=== PATIENT | female | born 1940 | race Caucasian/White ===

== ENCOUNTER 2023-05-06 09:31 | Inpatient (IN) ==
--- NOTE | 2023-04-29 12:54 | Anesthesiology Consultation ---
Date of Service April 29, 2023 Assessment & Plan (1) Encounter for pre-operative examination: Chart Review Chart Review: Acceptable Risk for Surgery (pending anesthesia evaluation DOS (getting CBC with diff, T&C, and 2 units of PRBCs DOS)) and Patient NOT seen in Pre Admission Testing - Type and Cross and CBC with diff stat for DOS Discussed with Dr. Hernandez- due to patient's significant anemia and nature of surgery- decision was made to transfuse patient DOS with two units of PRBCs (ordered for DOS). Surgeon's office/patient was informed. OR informed to bring in patient three hours early. Blood Bank was also informed- Blood Bank recommended preop T&S- patient will attempt to get preop T&S done 05/04/23 (ordered) per Blood Bank recommendations. Dr Ojeda (anesthesiologist DOS)- is aware and agrees with plan. Per surgeon phone message 04/28/23 in [facility] re: anemia= "If she is asymptomatic, will assess at date of operation but if symptoms develop would transfuse her." -Infectious Disease screening: Per PAT nursing assessment on 04/29/23. No known infectious disease contacts in past 10 days or current infectious disease symptoms. No recent travel outside the country. History Surgery Operation Date: 05/06/23 12:35 Proposed Procedures p Open Right Colon Resection - Bartolo Khoury MD Height/Weight Height: 5 ft 2 in Weight: 53.07 kg Allergies Allergy/AdvReac Type Severity Reaction Status Date / Time methylprednisolone Allergy Severe [place] like Verified 04/29/23 11:44 back and stomach were on fire. aspirin Allergy Unknown "made me Verified 04/29/23 11:44 feel weird" azithromycin Allergy Diarrhea Verified 04/29/23 11:44 Cephalosporins Allergy unsure of Verified 04/29/23 11:44 reaction Medications Home Medications Medication Instructions Recorded Confirmed Last Taken lisinopril 20 mg tablet 20 mg PO QAM 04/30/20 04/29/23 04/30/20 tramadol 50 mg tablet 50 mg PO BID PRN pain #11 tabs 04/05/23 04/29/23 Unknown Past Medical History Medical History Age related osteoporosis Anxiety Hip pain, right Hx of migraines Hypercholesterolemia Hypertension Smoker Vaginal vault prolapse after hysterectomy Past Surgical History Surgical History Hx of hysterectomy w/ removal remaining fallopian tube and ovary Hx of unilateral oophorectomy w/removal appendix>also removed "a 25 lb chocolate cyst and chocolate fluid" Social History Smoking Status: Current every day smoker Smoking cigarettes per day: 1 ppd Do You Dip or Chew Tobacco: No Hx Alcohol Use: No Hx Substance Use: No substance use type: does not use Testing Laboratory Results 04/25/23= WBC: 15.26 H/H: 7.3/23.6 (surgeon aware) PLATELETS: 623 SODIUM: 137 POTASSIUM: 4.7 CHLORIDE: 98 CO2: 28 BUN: 15 CREATININE: 0.7 GLUCOSE: 109 04/05/23= UA: Negative Electrocardiogram Date: 04/05/23 SR with PACs at 84bpm Poor R wave progression, consider anterior [place] vs lead placement vs LVH (Septal infarct noted on 2019 EKG; discussed with Dr. Rodrigues- due to nature of procedure- patient can proceed as scheduled. Will leave to anesthesiologist discretion DOS if repeat EKG needed) Other Testing Abdomen/Pelvis CT 04/05/23= Increased size of the cecal mass described on the study from 05/12/2020 now measuring up to approximately 8 cm. Primary colorectal carcinoma is the primary differential consideration. As previously suggested, follow-up with GI consult and colonoscopy recommended. Borderline enlarged lymph nodes of the ileocolic mesentery. No bowel obstruction or pneumoperitoneum. Mild nonspecific urinary bladder wall thickening. Correlate with urinalysis.
[2023-05-06 10:16] LABS: Basophils # (auto) 0.02 K/uL (0.00-0.20); Basophils % (auto) 0.1 %; Eosinophils # (auto) 0.03 K/uL (0.00-0.50); Eosinophils % (auto) 0.2 %; Hematocrit (blood only) 23.7 % (37.0-47.0); Hemoglobin 7.3 g/dl (12.0-16.0); Immature Granulocytes % (auto) 0.7 %; Lymphocytes # (auto) 1.77 K/uL (1.20-3.40); Lymphocytes % (auto) 11.9 %; Mean Corpuscular Hgb Conc 30.8 g/dL (32.0-36.0); Mean Corpuscular Volume 68.3 fL (80.0-100.0); Monocytes # (auto) 0.93 K/uL (0.11-0.59); Monocytes % (auto) 6.3 %; Neutrophils # (auto) 11.97 K/uL (1.40-6.50); Neutrophils % (auto) 80.8 %; RDW Standard Deviation 43.4 fL (36.4-46.3); Red Blood Count 3.47 M/uL (4.20-5.40); White Blood Count 14.82 K/ul (4.8-10.8)
[2023-05-06 10:20] LABS: Mean Platelet Volume 8.8 fL (9.4-12.4); Platelet Count 614 K/uL (130-400)
[2023-05-06] MEDS: LACTATED RINGER'S 1,000 ML IV SCH ×2 (10:28→16:54)
[2023-05-06] MEDS ORDERED: SODIUM CHLORIDE 0.9% 250 ML IV PRN (10:51)
[2023-05-06 11:13] LABS: Hypochromasia Present; Polychromasia 1+; Target Cells 1+
[2023-05-06] MEDS ORDERED: ATROPINE SULFATE 0.1 MG/ML 10ML SYR IV PRN (11:38)
[2023-05-06] MEDS ORDERED: PROMETHAZINE HCL 6.25 MG in SODIUM CHLORIDE 0.9% 50 ML IV PRN (11:38)
[2023-05-06] MEDS ORDERED: ONDANSETRON INJ 2 MG/ML 2 ML VIAL IV PRN (11:38)
[2023-05-06] MEDS ORDERED: ePHEDrine sulfate 50 MG/ML AMP IV PRN (11:38)
[2023-05-06] MEDS ORDERED: fentaNYL citrate PF 100 MCG/2 ML VIAL ONE (11:41)
[2023-05-06] MEDS ORDERED: ONDANSETRON INJ 2 MG/ML 2 ML VIAL ONE (11:41)
[2023-05-06] MEDS ORDERED: DEXAMETHASONE SOD INJ 4 MG/ML VIAL ONE (11:41)
[2023-05-06] MEDS ORDERED: LIDOCAINE 2% 2 ML VIAL/AMP(20MG/ML) INFIL ONE (11:41)
[2023-05-06] MEDS ORDERED: PROPOFOL IV EMULSION 10 MG/ML 20 ML VIAL IV ONE (11:41)
[2023-05-06] MEDS ORDERED: ROCURONIUM BROMIDE 10 MG/ML 5 ML VIAL IV ONE (11:41)
[2023-05-06] MEDS ORDERED: SUGAMMADEX SODIUM 200 MG/2 ML VIAL IV ONE (11:42)
[2023-05-06] MEDS ORDERED: BUPIVACAINE 0.25% PF 30 ML VIAL ONE (11:47)
--- NOTE | 2023-05-06 13:15 | History & Physical Bridge Note ---
Date of Service May 06, 2023 History & Physical Bridge Note I have examined the patient, reviewed the History & Physical and in the interval since the performance of the History & Physical I have noted the following changes of clinical significance: no changes noted
[2023-05-06] MEDS: CLINDAMYCIN 900 MG/D5W 50 ML BAG IV ONE (13:20)
[2023-05-06] MEDS ORDERED: ePHEDrine sulfate 50 MG/5 ML SYR ONE (13:54)
[2023-05-06] MEDS ORDERED: PHENYLEPHRINE 100MCG/ML 10ML SYR IV ONE (14:08)
--- NOTE | 2023-05-06 14:50 | Post Operative Brief Note ---
Immediate Post Op Note v1 Date of Surgery May 06, 2023 Pre & Post Diagnosis Operation Date: 05/06/23 12:35 Pre-Op Diagnosis: Mass of Colon Post-Op Diagnosis: Mass of Colon I identified the patient and participated in the time-out.: Yes Procedure Operation Date: 05/06/23 12:35 Actual Procedures p Open Right Colon Resection(Right) - Bartolo Khoury MD Surgeon Bartolo Khoury MD Warp Worker Mireya Acosta PA-C Estimated Blood Loss 5 Findings Consistent with Post-Op Diagnosis Drains Wellington Drain and Hopkins Catheter
--- NOTE | 2023-05-06 15:03 | Operative Report ---
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 Palpable lymph nodes along the blood supply. Specimens Right hemicolectomy. Ischemic portion of the terminal ileum. Abdominal sidewall resection. Ink on the distal lateral margin. 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 Indications This is a 83-year-old female who was seen in consult after a colonoscopy showed a cecal mass. The biopsy results were equivocal but appears to be carcinoma by CT. Her CEA is also elevated. She had a hematocrit of 21 and received a transfusion preoperatively. I talked her in detail about these findings and recommended right colectomy. She understands all the risks and wishes to proceed. Description of Procedure The patient was taken to the OR and underwent excellent general anesthesia. She had a regional block by anesthesia preoperatively. Her abdomen then prepped and draped normal sterile fashion. A upper midline incision was extended down to below the umbilicus. Peritoneal cavity was entered without incident. On exploration she had a large cecal mass which was adherent to the right lateral solid sidewall. This also appeared to be near necrotic. Although there was no perforation at this time. Attention was first turned to her gastrocolic limit ligament which was taken down harmonic scalpel. This was extended around the hepatic flexure and along the right lateral sidewall. A blunt and sharp dissection was used to free up the right colon. This was done until the mass was noted to be adherent and stuck to the sidewall. Attention was then turned to her terminal ileum where a segment was transected. The distal colon was also transected just distal to the hepatic flexure. The peritoneum was taken down to the base of the blood supply. Harmonic scalpel was used to dissected until the major vessels were seen. Once this was done a clamp was placed as proximal on the right colic artery as possible. This was then transected using the harmonic scalpel taken as many lymph nodes as possible. A 0 silk silk stick tie was used to ligate the blood supply proximally. Once this was done traction was placed on the segment of right colon and cautery was used to try and resect the lateral sidewall en bloc. In doing this the colon perforated where the area of necrosis had been noted previously. Care was taken to avoid any spillage. Cautery was used then to transect the lateral abdominal wall into the muscle with healthy tissue laterally. This is the inked margin was resected separately and sent for pathologic pathology evaluation. The right colon was also sent separately. Attention was then turned to the segment of bowel. The distal terminal ileum appeared to be ischemic and dissection was then we resected using a DENNIS stapler. Once good healthy tissue was noted a [id number] anastomosis was created with a DENNIS stapler. The defects were closed with a DENNIS stapler and reinforced with interrupted silks. The mesenteric defect was then closed with interrupted 6 silks also. This closed the mesenteric defect without any openings. The abdomen was then irrigated and irrigated out with 2 L of saline. There was minimal blood loss. NG tube was checked to be in good position. A Wellington drain was then placed down into the pelvis and along the right lateral abdominal wall. There was no obvious spillage but this was precautionary to avoid any potential abscess. The fascia was then closed with a running PDS suture. The skin was closed with bailee. Sterile dressing was applied. She tolerated procedure without complications and be sent to postop recovery for a period of observation. She will be moved to the floor when she meets criteria Mireya San PA-C was involved in the entire procedure and and assisted with retraction, facilitation of the procedure, and skin closure. There was no qualified medical surgical tech available to assist in the procedure. I attest to the content of the Intraoperative Record and any orders documented therein. Any exceptions are noted below.
[2023-05-06] MEDS ORDERED: PHENYLEPHRINE HCL 10 MG/ML VIAL ONE (15:10)
[2023-05-06] MEDS: fentaNYL citrate PF 100 MCG/2 ML VIAL IV PRN (15:13)
--- NOTE | 2023-05-06 16:03 | Anesthesiology Progress Note ---
Date of Service May 06, 2023 Anesthesia Post Procedure Vital Signs Vital Signs: Temp Pulse Pulse Resp BP BP Pulse Ox 05/06/23 15:50 36.8 C 81 18 142/77 H 100 05/06/23 15:40 36.8 C 75 18 152/77 H 100 05/06/23 15:30 74 18 156/78 H 100 05/06/23 15:20 72 19 150/77 H 100 05/06/23 15:10 74 23 144/101 H 99 05/06/23 14:59 36.8 C 79 18 145/76 H 100 05/06/23 12:49 36.6 C 81 20 136/85 98 05/06/23 12:37 36.8 C 67 18 110/87 98 05/06/23 12:13 36.7 C 70 18 133/87 98 05/06/23 11:40 37.0 C 71 20 128/85 98 05/06/23 11:25 36.4 C L 77 20 124/55 L 99 05/06/23 11:07 36.9 C 69 18 136/70 98 05/06/23 10:09 O2 Del Method O2 Flow Rate 05/06/23 15:50 Oxymask 2 05/06/23 15:40 Oxymask 4 05/06/23 15:30 Oxymask 5 05/06/23 15:20 Oxymask 5 05/06/23 15:10 Oxymask 7 05/06/23 14:59 Oxymask 7 05/06/23 12:49 05/06/23 12:37 05/06/23 12:13 05/06/23 11:40 05/06/23 11:25 05/06/23 11:07 05/06/23 10:09 Room Air Pain Intensity Medial Abdomen: Pain Intensity: 3 Transfer of Care Handoff Completed per policy Notes Mental Status: alert / awake / arousable Patient Amnestic to Procedure: Yes Nausea / Vomiting: adequately controlled Pain: adequately controlled Airway Patency, RR, SpO2: stable & adequate BP & HR: stable & adequate Hydration State: stable & adequate Anesthetic Complications: no major complications apparent
[2023-05-06] MEDS ORDERED: ACETAMINOPHEN 325 MG TAB PO PRN (16:44)
[2023-05-06] MEDS ORDERED: ALUMINUM/MAGNESIUM SUSP 30 ML UDC PO PRN (16:44)
[2023-05-06] MEDS ORDERED: oxyCODONE/ACETAMINOPHEN 5mg/325mg TAB PO PRN ×2 (16:44)
[2023-05-06] MEDS ORDERED: MoRPHine SULFATE 4 MG/ML 1 ML CARP\\VIAL IV PRN (16:44)
[2023-05-06] MEDS: CLINDAMYCIN/D5W 900 MG/50 ML BAG IV SCH ×2 (16:49→17:37)
[2023-05-06] MEDS: ALLERGY Noted to ORDERED Medication SCH (16:50)
[2023-05-06] MEDS: MoRPHine SULFATE 2 MG/ML CARP IV PRN (17:00)
[2023-05-06] MEDS: ENOXAPARIN INJ 40 MG/0.4 ML SYR SQ SCH (17:37)
[2023-05-07] MEDS: LACTATED RINGER'S 1,000 ML IV ONE (06:28)
[2023-05-07 07:55] LABS: Albumin Globulin Ratio 1.1 (0.9-2); Albumin Level 2.3 gm/dl (3.4-5.0); BUN Creatinine Ratio 22.4 (10-20); Bilirubin Direct 0.1 mg/dl (0-0.2); Bilirubin,Total 0.4 mg/dl (0.2-1.0); Calcium 7.6 mg/dl (8.6-10.3); Creatinine Clr Calc Pharmacy 44.4 ml/min; Est GFR (African American) 84.1 ml/min; Est GFR (Non-African American) 72.5 ml/min; Potassium 4.4 mmol/L (3.5-5.1); Total Protein 4.3 gm/dl (6.0-8.3)
[2023-05-07 08:58] LABS: Hematocrit (blood only) 22.3 % (37.0-47.0); Hemoglobin 7.1 g/dl (12.0-16.0); Mean Corpuscular Hgb Conc 31.8 g/dL (32.0-36.0); Mean Corpuscular Volume 72.2 fL (80.0-100.0); Mean Platelet Volume 9.5 fL (9.4-12.4); Platelet Count 426 K/uL (130-400); RDW Coefficient of Variation 20.8 % (11.5-14.5); RDW Standard Deviation 53.3 fL (36.4-46.3); Red Blood Count 3.09 M/uL (4.20-5.40); White Blood Count 20.46 K/ul (4.8-10.8)
[2023-05-07 09:03] LABS: Basophils # (auto) 0.02 K/uL (0.00-0.20); Basophils % (auto) 0.1 %; Hypochromasia Present; Immature Granulocytes # (auto) 0.08 K/uL (0.01-0.20); Immature Granulocytes % (auto) 0.4 %; Lymphocytes # (auto) 1.29 K/uL (1.20-3.40); Lymphocytes % (auto) 6.3 %; Monocytes # (auto) 0.84 K/uL (0.11-0.59); Monocytes % (auto) 4.1 %; Neutrophils # (auto) 18.23 K/uL (1.40-6.50); Neutrophils % (auto) 89.1 %; Polychromasia 2+; Schistocytes 1+
[2023-05-07] MEDS: ACETAMINOPHEN 1,000 MG/100 ML VIAL IV SCH (09:03)
--- NOTE | 2023-05-07 09:22 | Surgery Progress Note ---
Date of Service May 07, 2023 Assessment & Plan (1) Colonic mass: Plan: POD #1 s/p exploratory laparotomy right hemicolectomy, removal of right abdominal side wall (tumor invaded the right abdominal wall muscle) -avss - NGT with minimal to no output - Urine output low last night only 100 cc (s/p 1 liter ) - creatinine wnl (2) Anemia: Plan: Chronic in setting of colonic mass hemoglobin 7.1 this am (7.3 preop) s/p 1 unit of PRBCs preop, 1 liter of LR this morning likely dilutional hemodynamically stable Plan plan: IV tylenol scheduled, will add IV Toradol prn Remove NGT sips and chips keep suggs OOB to chair incentive spirometry scds and lovenox for DVT prophylaxis repeat am labs Continue IV Clindamycin PT/OT ordered abdominal binder Dr. Khoury has seen and examined patient, agrees with above Admission and Anticipated Discharge Date Admission Date: May 06, 2023 Subjective having moderate abdominal pain, generalized Morphine made her really confused last night, was trying to pull out IVs and r emove SCDs, did not like that feeling no nausea or vomiting no chest pain or shortness of breath Physical Exam Constitutional: WD/WN, vitals as above cooperative and comfortable; no acute distress, not ill appearing and not diaphoretic Respiratory: normal respiratory effort; no respiratory distress and no labored breathing Gastrointestinal (Abdomen): Inspection/Auscultation: abdomen normal to inspection, + abdomen distended (mildly), + abdominal surgical incision (covered with dry dressing) and + abdominal surgical drain present (cloudy serosanguineous); + abnormal bowel sounds Percussion/Palpation: + abdomen tender (Right lower abdomen, at midline incision) and abdomen soft; no guarding and abdomen not rigid Skin: no rashes, warm and dry Psychiatric: Orientation: alert and oriented x 3 Results & Data Vital Signs (Past 12 Hours) Vital Signs Temp Pulse Resp BP Pulse Ox O2 Del Method 05/07/23 07:27 36.6 C 75 18 105/71 94 Room Air 05/07/23 02:44 36.4 C L 71 16 112/63 95 Room Air 05/06/23 23:07 36.7 C 85 16 115/69 97 Room Air Laboratory Results 03/26/24 03/26/24 03/26/24 Range/Units 07:17 07:14 07:14 WBC 20.46 H (4.8-10.8) K/ul RBC 3.09 L (4.20-5.40) M/uL Hgb 7.1 L (12.0-16.0) g/dl Hct 22.3 L (37.0-47.0) % MCV 72.2 L D (80.0-100.0) fL MCH 23.0 L (25.0-34.0) pg MCHC 31.8 L (32.0-36.0) g/dL RDW Std Deviation 53.3 H (36.4-46.3) fL RDW Coeff of Brad 20.8 H (11.5-14.5) % Plt Count 426 H (130-400) K/uL MPV 9.5 (9.4-12.4) fL Immature Gran % (Auto) 0.4 % Neut % (Auto) 89.1 % Lymph % (Auto) 6.3 % [place] % (Auto) 4.1 % Eos % (Auto) 0.0 % Baso % (Auto) 0.1 % Neut # (Auto) 18.23 H (1.40-6.50) K/uL Lymph # (Auto) 1.29 (1.20-3.40) K/uL [place] # (Auto) 0.84 H (0.11-0.59) K/uL Eos # (Auto) 0.00 (0.00-0.50) K/uL Baso # (Auto) 0.02 (0.00-0.20) K/uL Immature Gran # (Auto) 0.08 (0.01-0.20) K/uL Polychromasia 2+ Hypochromasia Present Target Cells Schistocytes 1+ Sodium (136-145) mmol/L Potassium (3.5-5.1) mmol/L Chloride (98-107) mmol/L Carbon Dioxide (21-32) mmol/L Anion Gap (3-11) BUN (6-23) mg/dl Creatinine (0.6-1.2) mg/dl Est Cr Clr Drug Dosing ml/min Est GFR ( Amer) ml/min Est GFR (Non-Af Amer) ml/min BUN/Creatinine Ratio (10-20) Glucose Cancelled (70-99(Fasting)) mg/dl Calcium Cancelled 7.6 L (8.6-10.3) mg/dl Total Bilirubin 0.4 (0.2-1.0) mg/dl Direct Bilirubin 0.1 (0-0.2) mg/dl AST 9 L (13-39) U/L ALT 6 L (7-52) U/L Alkaline Phosphatase 54 (34-104) U/L Total Protein 4.3 L (6.0-8.3) gm/dl Albumin 2.3 L (3.4-5.0) gm/dl Globulin 2.0 L (2.5-4.0) gm/dl Albumin/Globulin Ratio 1.1 (0.9-2) Blood Type Antibody Screen Crossmatch 05/07/23 05/07/23 05/07/23 Range/Units 07:14 07:14 07:14 WBC (4.8-10.8) K/ul RBC (4.20-5.40) M/uL Hgb (12.0-16.0) g/dl Hct (37.0-47.0) % MCV (80.0-100.0) fL MCH (25.0-34.0) pg MCHC (32.0-36.0) g/dL RDW Std Deviation (36.4-46.3) fL RDW Coeff of Brad (11.5-14.5) % Plt Count (130-400) K/uL MPV (9.4-12.4) fL Immature Gran % (Auto) % Neut % (Auto) % Lymph % (Auto) % [place] % (Auto) % Eos % (Auto) % Baso % (Auto) % Neut # (Auto) (1.40-6.50) K/uL Lymph # (Auto) (1.20-3.40) K/uL [place] # (Auto) (0.11-0.59) K/uL Eos # (Auto) (0.00-0.50) K/uL Baso # (Auto) (0.00-0.20) K/uL Immature Gran # (Auto) (0.01-0.20) K/uL Polychromasia Hypochromasia Target Cells Schistocytes Sodium (136-145) mmol/L Potassium (3.5-5.1) mmol/L Chloride (98-107) mmol/L Carbon Dioxide (21-32) mmol/L Anion Gap (3-11) BUN (6-23) mg/dl Creatinine (0.6-1.2) mg/dl Est Cr Clr Drug Dosing ml/min Est GFR ( Amer) Cancelled ml/min Est GFR (Non-Af Amer) Cancelled 72.5 ml/min BUN/Creatinine Ratio Cancelled 22.4 H (10-20) Glucose 124 H (70-99(Fasting)) mg/dl Calcium (8.6-10.3) mg/dl Total Bilirubin (0.2-1.0) mg/dl Direct Bilirubin (0-0.2) mg/dl AST (13-39) U/L ALT (7-52) U/L Alkaline Phosphatase (34-104) U/L Total Protein (6.0-8.3) gm/dl Albumin (3.4-5.0) gm/dl Globulin (2.5-4.0) gm/dl Albumin/Globulin Ratio (0.9-2) Blood Type Antibody Screen Crossmatch 05/07/23 05/07/23 05/07/23 Range/Units 07:14 07:14 07:14 WBC (4.8-10.8) K/ul RBC (4.20-5.40) M/uL Hgb (12.0-16.0) g/dl Hct (37.0-47.0) % MCV (80.0-100.0) fL MCH (25.0-34.0) pg MCHC (32.0-36.0) g/dL RDW Std Deviation (36.4-46.3) fL RDW Coeff of Brad (11.5-14.5) % Plt Count (130-400) K/uL MPV (9.4-12.4) fL Immature Gran % (Auto) % Neut % (Auto) % Lymph % (Auto) % [place] % (Auto) % Eos % (Auto) % Baso % (Auto) % Neut # (Auto) (1.40-6.50) K/uL Lymph # (Auto) (1.20-3.40) K/uL [place] # (Auto) (0.11-0.59) K/uL Eos # (Auto) (0.00-0.50) K/uL Baso # (Auto) (0.00-0.20) K/uL Immature Gran # (Auto) (0.01-0.20) K/uL Polychromasia Hypochromasia Target Cells Schistocytes Sodium (136-145) mmol/L Potassium (3.5-5.1) mmol/L Chloride (98-107) mmol/L Carbon Dioxide (21-32) mmol/L Anion Gap (3-11) BUN Cancelled (6-23) mg/dl Creatinine Cancelled 0.76 (0.6-1.2) mg/dl Est Cr Clr Drug Dosing Cancelled 44.4 ml/min Est GFR ( Amer) 84.1 ml/min Est GFR (Non-Af Amer) ml/min BUN/Creatinine Ratio (10-20) Glucose (70-99(Fasting)) mg/dl Calcium (8.6-10.3) mg/dl Total Bilirubin (0.2-1.0) mg/dl Direct Bilirubin (0-0.2) mg/dl AST (13-39) U/L ALT (7-52) U/L Alkaline Phosphatase (34-104) U/L Total Protein (6.0-8.3) gm/dl Albumin (3.4-5.0) gm/dl Globulin (2.5-4.0) gm/dl Albumin/Globulin Ratio (0.9-2) Blood Type Antibody Screen Crossmatch 05/07/23 05/07/23 05/07/23 Range/Units 07:14 07:14 07:14 WBC (4.8-10.8) K/ul RBC (4.20-5.40) M/uL Hgb (12.0-16.0) g/dl Hct (37.0-47.0) % MCV (80.0-100.0) fL MCH (25.0-34.0) pg MCHC (32.0-36.0) g/dL RDW Std Deviation (36.4-46.3) fL RDW Coeff of Brad (11.5-14.5) % Plt Count (130-400) K/uL MPV (9.4-12.4) fL Immature Gran % (Auto) % Neut % (Auto) % Lymph % (Auto) % [place] % (Auto) % Eos % (Auto) % Baso % (Auto) % Neut # (Auto) (1.40-6.50) K/uL Lymph # (Auto) (1.20-3.40) K/uL [place] # (Auto) (0.11-0.59) K/uL Eos # (Auto) (0.00-0.50) K/uL Baso # (Auto) (0.00-0.20) K/uL Immature Gran # (Auto) (0.01-0.20) K/uL Polychromasia Hypochromasia Target Cells Schistocytes Sodium (136-145) mmol/L Potassium (3.5-5.1) mmol/L Chloride Cancelled (98-107) mmol/L Carbon Dioxide Cancelled 27 (21-32) mmol/L Anion Gap Cancelled 5 (3-11) BUN 17 (6-23) mg/dl Creatinine (0.6-1.2) mg/dl Est Cr Clr Drug Dosing ml/min Est GFR ( Amer) ml/min Est GFR (Non-Af Amer) ml/min BUN/Creatinine Ratio (10-20) Glucose (70-99(Fasting)) mg/dl Calcium (8.6-10.3) mg/dl Total Bilirubin (0.2-1.0) mg/dl Direct Bilirubin (0-0.2) mg/dl AST (13-39) U/L ALT (7-52) U/L Alkaline Phosphatase (34-104) U/L Total Protein (6.0-8.3) gm/dl Albumin (3.4-5.0) gm/dl Globulin (2.5-4.0) gm/dl Albumin/Globulin Ratio (0.9-2) Blood Type Antibody Screen Crossmatch 05/07/23 05/07/23 05/07/23 Range/Units 07:14 07:14 07:14 WBC (4.8-10.8) K/ul RBC (4.20-5.40) M/uL Hgb (12.0-16.0) g/dl Hct (37.0-47.0) % MCV (80.0-100.0) fL MCH (25.0-34.0) pg MCHC (32.0-36.0) g/dL RDW Std Deviation (36.4-46.3) fL RDW Coeff of Brad (11.5-14.5) % Plt Count (130-400) K/uL MPV (9.4-12.4) fL Immature Gran % (Auto) % Neut % (Auto) % Lymph % (Auto) % [place] % (Auto) % Eos % (Auto) % Baso % (Auto) % Neut # (Auto) (1.40-6.50) K/uL Lymph # (Auto) (1.20-3.40) K/uL [place] # (Auto) (0.11-0.59) K/uL Eos # (Auto) (0.00-0.50) K/uL Baso # (Auto) (0.00-0.20) K/uL Immature Gran # (Auto) (0.01-0.20) K/uL Polychromasia Hypochromasia Target Cells Schistocytes Sodium Cancelled 136 (136-145) mmol/L Potassium Cancelled 4.4 (3.5-5.1) mmol/L Chloride 104 (98-107) mmol/L Carbon Dioxide (21-32) mmol/L Anion Gap (3-11) BUN (6-23) mg/dl Creatinine (0.6-1.2) mg/dl Est Cr Clr Drug Dosing ml/min Est GFR ( Amer) ml/min Est GFR (Non-Af Amer) ml/min BUN/Creatinine Ratio (10-20) Glucose (70-99(Fasting)) mg/dl Calcium (8.6-10.3) mg/dl Total Bilirubin (0.2-1.0) mg/dl Direct Bilirubin (0-0.2) mg/dl AST (13-39) U/L ALT (7-52) U/L Alkaline Phosphatase (34-104) U/L Total Protein (6.0-8.3) gm/dl Albumin (3.4-5.0) gm/dl Globulin (2.5-4.0) gm/dl Albumin/Globulin Ratio (0.9-2) Blood Type Antibody Screen Crossmatch 05/06/23 05/04/23 Range/Units 10:01 10:09 WBC 14.82 H (4.8-10.8) K/ul RBC 3.47 L (4.20-5.40) M/uL Hgb 7.3 L (12.0-16.0) g/dl Hct 23.7 L (37.0-47.0) % MCV 68.3 L (80.0-100.0) fL MCH 21.0 L (25.0-34.0) pg MCHC 30.8 L (32.0-36.0) g/dL RDW Std Deviation 43.4 (36.4-46.3) fL RDW Coeff of Brad 18.0 H (11.5-14.5) % Plt Count 614 H (130-400) K/uL MPV 8.8 L (9.4-12.4) fL Immature Gran % (Auto) 0.7 % Neut % (Auto) 80.8 % Lymph % (Auto) 11.9 % [place] % (Auto) 6.3 % Eos % (Auto) 0.2 % Baso % (Auto) 0.1 % Neut # (Auto) 11.97 H (1.40-6.50) K/uL Lymph # (Auto) 1.77 (1.20-3.40) K/uL [place] # (Auto) 0.93 H (0.11-0.59) K/uL Eos # (Auto) 0.03 (0.00-0.50) K/uL Baso # (Auto) 0.02 (0.00-0.20) K/uL Immature Gran # (Auto) 0.10 (0.01-0.20) K/uL Polychromasia 1+ Hypochromasia Present Target Cells 1+ Schistocytes Sodium (136-145) mmol/L Potassium (3.5-5.1) mmol/L Chloride (98-107) mmol/L Carbon Dioxide (21-32) mmol/L Anion Gap (3-11) BUN (6-23) mg/dl Creatinine (0.6-1.2) mg/dl Est Cr Clr Drug Dosing ml/min Est GFR ( Amer) ml/min Est GFR (Non-Af Amer) ml/min BUN/Creatinine Ratio (10-20) Glucose (70-99(Fasting)) mg/dl Calcium (8.6-10.3) mg/dl Total Bilirubin (0.2-1.0) mg/dl Direct Bilirubin (0-0.2) mg/dl AST (13-39) U/L ALT (7-52) U/L Alkaline Phosphatase (34-104) U/L Total Protein (6.0-8.3) gm/dl Albumin (3.4-5.0) gm/dl Globulin (2.5-4.0) gm/dl Albumin/Globulin Ratio (0.9-2) Blood Type O Positive Antibody Screen NEGATIVE Crossmatch See Detail
[2023-05-07] MEDS: PANTOprazole 40 MG in SYRINGE 0 ML IV SCH (12:27)
[2023-05-07] MEDS: FUROSEMIDE INJ 20 MG/2 ML VIAL IV ONE (16:11)
[2023-05-08 07:12] LABS: Hematocrit (blood only) 21.1 % (37.0-47.0); Hemoglobin 6.7 g/dl (12.0-16.0); Mean Corpuscular Hemoglobin 22.8 pg (25.0-34.0); Mean Corpuscular Hgb Conc 31.8 g/dL (32.0-36.0); Mean Corpuscular Volume 71.8 fL (80.0-100.0); Mean Platelet Volume 8.8 fL (9.4-12.4); Platelet Count 361 K/uL (130-400); RDW Coefficient of Variation 20.8 % (11.5-14.5); Red Blood Count 2.94 M/uL (4.20-5.40); White Blood Count 18.92 K/ul (4.8-10.8)
[2023-05-08] MEDS ORDERED: SODIUM CHLORIDE 0.9% 250 ML IV PRN ×2 (07:14→08:00)
[2023-05-08 07:31] LABS: BUN Creatinine Ratio 32.7 (10-20); Calcium 7.5 mg/dl (8.6-10.3); Est GFR (African American) 102.4 ml/min; Est GFR (Non-African American) 88.4 ml/min; Potassium 3.8 mmol/L (3.5-5.1)
[2023-05-08 07:33] LABS: Basophils # (auto) 0.02 K/uL (0.00-0.20); Basophils % (auto) 0.1 %; Eosinophils # (auto) 0.01 K/uL (0.00-0.50); Eosinophils % (auto) 0.1 %; Hypochromasia Present; Immature Granulocytes # (auto) 0.11 K/uL (0.01-0.20); Immature Granulocytes % (auto) 0.6 %; Lymphocytes # (auto) 0.91 K/uL (1.20-3.40); Lymphocytes % (auto) 4.8 %; Microcytosis Present; Monocytes # (auto) 0.39 K/uL (0.11-0.59); Monocytes % (auto) 2.1 %; Neutrophils # (auto) 17.48 K/uL (1.40-6.50); Neutrophils % (auto) 92.3 %
--- NOTE | 2023-05-08 08:38 | Surgery Progress Note ---
<Statement entered by Bartolo Khoury MD - 05/08/23 09:57> Patient seen and examined. Agree with above Date of Service May 08, 2023 Assessment & Plan (1) Colonic mass: Plan: POD #2 s/p exploratory laparotomy right hemicolectomy, removal of right abdominal side wall (tumor invaded the right abdominal wall muscle) - avss - Urine output adequate after Lasix - creatinine wnl (2) Anemia: Plan: acute on Chronic in setting of colonic mass hemoglobin 6.7 this am (7.1 yesterday, 7.3 preop) s/p 1 unit of PRBCs preop, 1 liter of LR given 05/07/23 due to low urine output. Likely dilutional hemodynamically stable Plan: Will plan to transfuse 2 units of PRBCs Plan plan: transfuse 2 units PRBCs IV tylenol scheduled, continue IV Toradol prn clears discontinue Gabriel OOB to chair today incentive spirometry scds and lovenox for DVT prophylaxis repeat am labs Continue IV Clindamycin PT/OT ordered abdominal binder Dr. Khoury has seen and examined patient, agrees with above Admission and Anticipated Discharge Date Admission Date: May 06, 2023 Subjective feeling frustrated this morning abdominal soreness but not having a lot of abdominal pain no n,v no flatus yet no chest pain or shortness of breath has not been out of bed much Physical Exam Constitutional: WD/WN, vitals as above cooperative and comfortable; no acute distress, not ill appearing and not diaphoretic Respiratory: normal respiratory effort, lungs clear to auscultation Cardiovascular: Rate/Rhythm: regular rate and regular rhythm Gastrointestinal (Abdomen): Inspection/Auscultation: abdomen normal to inspection, normal bowel sounds and + abdominal surgical incision (covered with dry dressing, bailee intact); abdomen not distended Percussion/Palpation: + abdomen tender (right upper and lower abdomen, midline laparotomy incision) and abdomen soft; no guarding, abdomen not rigid and abdomen not firm Skin: no rashes, warm and dry Psychiatric: A+Ox3, euthymic affect Results & Data Vital Signs (Past 12 Hours) Vital Signs Temp Pulse Resp BP Pulse Ox O2 Del Method 05/08/23 08:04 Room Air 05/08/23 07:42 36.6 C 78 18 116/60 96 Room Air 05/07/23 21:18 36.6 C 71 16 105/61 94 Room Air Laboratory Results 05/08/23 05/08/23 05/04/23 Range/Units 08:24 06:31 10:09 WBC 18.92 H (4.8-10.8) K/ul RBC 2.94 L (4.20-5.40) M/uL Hgb 6.7 L* (12.0-16.0) g/dl Hct 21.1 L (37.0-47.0) % MCV 71.8 L (80.0-100.0) fL MCH 22.8 L (25.0-34.0) pg MCHC 31.8 L (32.0-36.0) g/dL RDW Std Deviation 53.0 H (36.4-46.3) fL RDW Coeff of Brad 20.8 H (11.5-14.5) % Plt Count 361 (130-400) K/uL MPV 8.8 L (9.4-12.4) fL Immature Gran % (Auto) 0.6 % Neut % (Auto) 92.3 % Lymph % (Auto) 4.8 % [place] % (Auto) 2.1 % Eos % (Auto) 0.1 % Baso % (Auto) 0.1 % Neut # (Auto) 17.48 H (1.40-6.50) K/uL Lymph # (Auto) 0.91 L (1.20-3.40) K/uL [place] # (Auto) 0.39 (0.11-0.59) K/uL Eos # (Auto) 0.01 (0.00-0.50) K/uL Baso # (Auto) 0.02 (0.00-0.20) K/uL Immature Gran # (Auto) 0.11 (0.01-0.20) K/uL Hypochromasia Present Microcytosis Present Sodium 133 L (136-145) mmol/L Potassium 3.8 (3.5-5.1) mmol/L Chloride 101 (98-107) mmol/L Carbon Dioxide 27 (21-32) mmol/L Anion Gap 5 (3-11) BUN 17 (6-23) mg/dl Creatinine 0.52 L (0.6-1.2) mg/dl Est Cr Clr Drug Dosing 65.0 ml/min Est GFR ( Amer) 102.4 ml/min Est GFR (Non-Af Amer) 88.4 ml/min BUN/Creatinine Ratio 32.7 H (10-20) Glucose 70 (70-99(Fasting)) mg/dl Calcium 7.5 L (8.6-10.3) mg/dl Blood Type O Positive Antibody Screen NEGATIVE Crossmatch See Detail See Detail
[2023-05-08 11:49] LABS: Microcytosis Present
[2023-05-08] MEDS: IBUPROFEN 600 MG TAB PO SCH (15:19)
[2023-05-08] MEDS ORDERED: Nursing to Pharmacy Communication SCH (19:15)
[2023-05-09 07:16] LABS: Hematocrit (blood only) 29.4 % (37.0-47.0); Hemoglobin 9.6 g/dl (12.0-16.0); Mean Corpuscular Hemoglobin 24.2 pg (25.0-34.0); Mean Corpuscular Hgb Conc 32.7 g/dL (32.0-36.0); Mean Corpuscular Volume 74.2 fL (80.0-100.0); Mean Platelet Volume 8.9 fL (9.4-12.4); Platelet Count 347 K/uL (130-400); RDW Coefficient of Variation 21.4 % (11.5-14.5); RDW Standard Deviation 56.7 fL (36.4-46.3); Red Blood Count 3.96 M/uL (4.20-5.40); White Blood Count 17.31 K/ul (4.8-10.8)
[2023-05-09 07:41] LABS: BUN Creatinine Ratio 22.6 (10-20); Calcium 7.4 mg/dl (8.6-10.3); Creatinine Clr Calc Pharmacy 63.7 ml/min; Est GFR (African American) 101.8 ml/min; Est GFR (Non-African American) 87.8 ml/min; Potassium 3.4 mmol/L (3.5-5.1)
[2023-05-09 07:51] LABS: Anisocytosis Present; Basophils # (auto) 0.02 K/uL (0.00-0.20); Basophils % (auto) 0.1 %; Eosinophils # (auto) 0.15 K/uL (0.00-0.50); Eosinophils % (auto) 0.9 %; Immature Granulocytes # (auto) 0.21 K/uL (0.01-0.20); Immature Granulocytes % (auto) 1.2 %; Lymphocytes # (auto) 0.67 K/uL (1.20-3.40); Lymphocytes % (auto) 3.9 %; Monocytes # (auto) 0.31 K/uL (0.11-0.59); Monocytes % (auto) 1.8 %; Neutrophils # (auto) 15.95 K/uL (1.40-6.50); Neutrophils % (auto) 92.1 %; Polychromasia 2+
--- NOTE | 2023-05-09 10:55 | Surgery Progress Note ---
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 ambulate dry dressing daily check CBC in AM afebrile Admission and Anticipated Discharge Date Admission Date: May 06, 2023 Subjective pain controlled bloody BM passing flatus Review of Systems Constitutional: no fever and no chills Respiratory: no cough and no dyspnea Cardiovascular: no chest pain Gastrointestinal: + abdominal pain and + change in bowel h abits; no nausea and no vomiting Genitourinary: no dysuria Neurologic: no localized weakness and no generalized weakness Psychiatric: no behavioral changes Physical Exam Constitutional: WD/WN, vitals as above Respiratory: normal respiratory effort, lungs clear to auscultation Cardiovascular: RRR, no murmur, no edema Gastrointestinal (Abdomen): Inspection/Auscultation: abdomen normal to inspection, + abdomen distended, normal bowel sounds and + abdominal surgical incision (clean and dry; some drainage) Percussion/Palpation: + abdomen tender and abdomen soft; no guarding and abdomen not rigid [place] serous Musculoskeletal: Head/Neck/Chest: normocephalic and head atraumatic Skin: no rashes, warm and dry Results & Data Vital Signs (Past 12 Hours) Vital Signs Temp Pulse Resp BP Pulse Ox O2 Del Method 05/09/23 08:10 Room Air 05/09/23 07:38 36.5 C 70 18 117/74 94 Room Air
[2023-05-09] MEDS: CLINDAMYCIN HCL 150 MG CAP PO SCH (14:57)
[2023-05-10 07:15] LABS: Hematocrit (blood only) 33.5 % (37.0-47.0); Hemoglobin 11.4 g/dl (12.0-16.0); Mean Corpuscular Hemoglobin 25.1 pg (25.0-34.0); Mean Corpuscular Volume 73.8 fL (80.0-100.0); Mean Platelet Volume 9.2 fL (9.4-12.4); Platelet Count 386 K/uL (130-400); RDW Coefficient of Variation 22.7 % (11.5-14.5); RDW Standard Deviation 58.9 fL (36.4-46.3); Red Blood Count 4.54 M/uL (4.20-5.40); White Blood Count 11.18 K/ul (4.8-10.8)
[2023-05-10 07:26] LABS: BUN Creatinine Ratio 20.3 (10-20); Calcium 7.6 mg/dl (8.6-10.3); Creatinine Clr Calc Pharmacy 57.3 ml/min; Est GFR (African American) 98.2 ml/min; Est GFR (Non-African American) 84.8 ml/min; Potassium 3.3 mmol/L (3.5-5.1)
[2023-05-10] MEDS: PANTOprazole 40 MG TAB PO SCH (07:42)
[2023-05-10] MEDS: ONDANSETRON INJ 2 MG/ML 2 ML VIAL IV PRN (07:43)
[2023-05-10 07:49] LABS: Anisocytosis Present; Basophils # (auto) 0.02 K/uL (0.00-0.20); Basophils % (auto) 0.2 %; Echinocytes 1+; Eosinophils # (auto) 0.05 K/uL (0.00-0.50); Eosinophils % (auto) 0.4 %; Immature Granulocytes # (auto) 0.11 K/uL (0.01-0.20); Lymphocytes # (auto) 0.77 K/uL (1.20-3.40); Lymphocytes % (auto) 6.9 %; Monocytes # (auto) 0.26 K/uL (0.11-0.59); Monocytes % (auto) 2.3 %; Neutrophils # (auto) 9.97 K/uL (1.40-6.50); Neutrophils % (auto) 89.2 %; Polychromasia 1+; Target Cells 1+; Toxic Vacuolation 1+
[2023-05-10] MEDS: PIPERACILLIN/TAZOBACTAM 4.5 GM in DEXTROSE 5% MINI-B 100 ML IV ONE (11:45)
[2023-05-10] MEDS: PROMETHAZINE HCL 12.5 MG in SODIUM CHLORIDE 0.9% 50 ML IV PRN (11:45)
--- NOTE | 2023-05-10 13:09 | Surgery Progress Note ---
Date of Service May 10, 2023 Assessment & Plan (1) Cecum cancer: Plan: POD #4 exploratory laparotomy right hemicolectomy avss leukocytosis improving hgb 11 drain with purulent drainage n/ today with mild distention Plan: revert back to ice chips/sips start IV zosyn PO tramadol an IV toradol for pain IV phenergan added ivy hartley to bulb suction encouraged ambulating hallway continue scds and lovenox monitor labs [facility] covering this weekend Admission and Anticipated Discharge Date Admission Date: May 06, 2023 Subjective not feeling good today +nausea and vomiting feels bloated not tolerating oral pills or the clear liquids well +flatus and bowel movement Physical Exam Constitutional: WD/WN, vitals as above + frail appearing and cooperative; no acute distress, not ill appearing, not in distress and not diaphoretic Respiratory: normal respiratory effort; no respiratory distress Gastrointestinal (Abdomen): Inspection/Auscultation: + abdomen distended (mild), + abdominal surgical incision (clean/dry/intact with bailee, some cloudy serosanguineous drainage) and + abdominal surgical drain present (purulent) Percussion/Palpation: + abdomen tender (right abdomen and at incision and drain site) and abdomen soft; no guarding, abdomen not rigid and abdomen not firm Psychiatric: Orientation: alert and oriented x 3 Results & Data Vital Signs (Past 12 Hours) Vital Signs Temp Pulse Resp BP Pulse Ox O2 Del Method 05/10/23 07:15 Room Air 05/10/23 07:12 36.6 C 73 18 97/61 L 93 Room Air Laboratory Results 05/10/23 Range/Units 06:19 WBC 11.18 H (4.8-10.8) K/ul RBC 4.54 (4.20-5.40) M/uL Hgb 11.4 L (12.0-16.0) g/dl Hct 33.5 L (37.0-47.0) % MCV 73.8 L (80.0-100.0) fL MCH 25.1 (25.0-34.0) pg MCHC 34.0 (32.0-36.0) g/dL RDW Std Deviation 58.9 H (36.4-46.3) fL RDW Coeff of Brad 22.7 H (11.5-14.5) % Plt Count 386 (130-400) K/uL MPV 9.2 L (9.4-12.4) fL Immature Gran % (Auto) 1.0 % Neut % (Auto) 89.2 % Lymph % (Auto) 6.9 % [place] % (Auto) 2.3 % Eos % (Auto) 0.4 % Baso % (Auto) 0.2 % Neut # (Auto) 9.97 H (1.40-6.50) K/uL Lymph # (Auto) 0.77 L (1.20-3.40) K/uL [place] # (Auto) 0.26 (0.11-0.59) K/uL Eos # (Auto) 0.05 (0.00-0.50) K/uL Baso # (Auto) 0.02 (0.00-0.20) K/uL Immature Gran # (Auto) 0.11 (0.01-0.20) K/uL Toxic Vacuolation 1+ Polychromasia 1+ Anisocytosis Present Target Cells 1+ Echinocytes 1+ Sodium 134 L (136-145) mmol/L Potassium 3.3 L (3.5-5.1) mmol/L Chloride 102 (98-107) mmol/L Carbon Dioxide 25 (21-32) mmol/L Anion Gap 7 (3-11) BUN 12 (6-23) mg/dl Creatinine 0.59 L (0.6-1.2) mg/dl Est Cr Clr Drug Dosing 57.3 ml/min Est GFR ( Amer) 98.2 ml/min Est GFR (Non-Af Amer) 84.8 ml/min BUN/Creatinine Ratio 20.3 H (10-20) Glucose 86 (70-99(Fasting)) mg/dl Calcium 7.6 L (8.6-10.3) mg/dl
[2023-05-10] MEDS: KETOROLAC TROMETHAMINE 15 MG/ML VIAL IV PRN (14:11)
[2023-05-10] MEDS: PIPERACILLIN/TAZOBACTAM 4.5 GM in DEXTROSE 5% MINI-B 100 ML IV SCH (16:08)
--- NOTE | 2023-05-11 05:26 | Surgery Progress Note ---
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 labs when available Mobilize as able Lovenox is in place for DVT prevention Admission and Anticipated Discharge Date Admission Date: May 06, 2023 Supervising Physician Co-Signing Physician Notes I have seen and examined this patient, I agree with the above assessment The patient does admit to feeling improved today although her WBC did increase a bit to 12.62 from 11.18. She says her abdominal pain is much better and is only bothersome with significant moving, she is passing flatus and BMs and the nausea she had has resolved. On my inspection later in the am after the PA, there is no erythema at the incision line or evidence for infection, there is a small amount of serous drainage noted on the gauze that had been replaced over the incision earlier this am by nursing. There is a small amount of moisture to the skin at the umbilicus where the serous drainage was present on gauze, will keep an eye on this area. We will watch for today, follow up am labs and examination to see if a repeat CT is warranted at that time. Patient complained to nursing about oral Protonix being difficult to swallow at this time, prefers IV. This order adjustment was made. Subjective Patient is resting comfortably in bed. She notes her pain is well-controlled. She notes she has been having bowel movements. She denies any cough or shortness of breath. She denies any fevers, shakes, or chills. Physical Exam Gastrointestinal (Abdomen): Abdomen is soft and nondistended with positive bowel sounds. Patient's his incision is intact with bailee. There is some purulent appearing material on the surgical dressing. CHEY[place] drain is in place with some yellowish/purulent material draining from it. CHEYENNE has drained 280 cc over the past 24 hours. Results & Data Vital Signs (Past 12 Hours) Vital Signs Temp Pulse Resp BP Pulse Ox O2 Del Method 05/10/23 20:13 36.9 C 82 18 116/73 93 Room Air 05/10/23 19:30 Room Air PG Care Time/CCT Total # of Minutes Spent Total Time Spent with Patient: Total time spent is greater than 50% in coordination of care (as documented) at patient's floor/unit and/or counseling patient: Coding Level of Care Code 52217 Post Operative Follow-Up Diagnoses Cecum cancer C18.0
[2023-05-11 07:17] LABS: Hemoglobin 10.4 g/dl (12.0-16.0); Mean Corpuscular Hemoglobin 24.4 pg (25.0-34.0); Mean Corpuscular Hgb Conc 34.7 g/dL (32.0-36.0); Mean Corpuscular Volume 70.4 fL (80.0-100.0); Mean Platelet Volume 8.8 fL (9.4-12.4); Platelet Count 354 K/uL (130-400); RDW Coefficient of Variation 23.7 % (11.5-14.5); RDW Standard Deviation 58.4 fL (36.4-46.3); Red Blood Count 4.26 M/uL (4.20-5.40); White Blood Count 12.62 K/ul (4.8-10.8)
[2023-05-11 07:47] LABS: BUN Creatinine Ratio 24.2 (10-20); Calcium 7.4 mg/dl (8.6-10.3); Creatinine Clr Calc Pharmacy 54.5 ml/min; Est GFR (African American) 96.6 ml/min; Est GFR (Non-African American) 83.4 ml/min; Potassium 3.4 mmol/L (3.5-5.1)
[2023-05-11 07:50] LABS: Anisocytosis Present; Basophils # (auto) 0.02 K/uL (0.00-0.20); Basophils % (auto) 0.2 %; Echinocytes 1+; Eosinophils # (auto) 0.04 K/uL (0.00-0.50); Eosinophils % (auto) 0.3 %; Immature Granulocytes # (auto) 0.04 K/uL (0.01-0.20); Immature Granulocytes % (auto) 0.3 %; Lymphocytes # (auto) 0.88 K/uL (1.20-3.40); Monocytes # (auto) 0.24 K/uL (0.11-0.59); Monocytes % (auto) 1.9 %; Neutrophils % (auto) 90.3 %; Polychromasia 3+; Target Cells 1+
[2023-05-11] MEDS: PANTOprazole 40 MG in SYRINGE 0 ML IV SCH (11:24)
--- NOTE | 2023-05-12 05:26 | Surgery Progress Note ---
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 labs when available Mobil[place] as able Lovenox is in place for DVT prevention Admission and Anticipated Discharge Date Admission Date: May 06, 2023 Supervising Physician Co-Signing Physician Notes I have seen and examined this patient, I agree with the above assessment The patient denies having any nausea over night. After seeing her this am, I r eceived a message from nursing requesting renewal of her IV Toradol, upon further questioning her ability to tolerate oral intake, I am told she has been c/o burning in her stomach with clears (of note, pt states yesterday she does not like the broth) H/H decreased. Patient on DVT ppx, the primary team may not have wanted Toradol past this time. HD stable, question some dilutional effect in H/H vs GI. Will decrease IVF rate. Monitor BP then may heplock if she begins to tolerate clears well and BP's remain within her usual range for this admission. Renal function is WNL but will hold off on Toradol. Patient is also ordered for oral Ibuprofen by her primary team. For pain, will try a dose of IV Tylenol x1 awaiting the patient to be able to transition to oral today if she tolerates oral intake better. Noted that her primary team has Percocet with Acetaminophen ordered at this time for oral administration. If additional doses of IV Tylenol will be used, consider changing the Percocet orders to Oxycodone while in house. Increase PPI to BID for now, monitor H/H. May consider obtaining FOBT if more suspicious for GI mucosal bleeding. Midline incision remains intact, more abdominal drainage noted this am which still appears more serous. Skin becoming macerated a the umbilicus. Also ecchymotic here. Change dressing more frequently (communication entered). Consider leaving open to air once drainage slows down. Primary surgical team will assess further in the am. Subjective Patient is resting comfortably in bed. She denies any nausea or vomiting. She does note some pain at her surgical incision. She reports that she has had a bowel movement in the past 24 hours. She denies any fevers, shakes, or chills Physical Exam Gastrointestinal (Abdomen): Abdomen has slight distention noted. Patient has appropriate tenderness near surgical incision. There is a small amount of drainage on surgical dressing. Otherwise, her incision is clean, dry, intact [place] drain is in place draining serous fluid and is drained approxione 150 cc over the past 24 hours Results & Data Vital Signs (Past 12 Hours) Vital Signs Temp Pulse Resp BP Pulse Ox O2 Del Method 05/11/23 21:21 37 C 72 18 112/78 94 Room Air PG Care Time/CCT Total # of Minutes Spent Total Time Spent with Patient: Total time spent is greater than 50% in coordination of care (as documented) at patient's floor/unit and/or counseling patient: Coding Level of Care Code 83465 Post Operative Follow-Up Diagnoses Cecum cancer C18.0
[2023-05-12 08:09] LABS: Hemoglobin 8.5 g/dl (12.0-16.0); Mean Corpuscular Hemoglobin 23.9 pg (25.0-34.0); Mean Corpuscular Hgb Conc 32.7 g/dL (32.0-36.0); Mean Corpuscular Volume 73.2 fL (80.0-100.0); Platelet Count 313 K/uL (130-400); RDW Standard Deviation 62.4 fL (36.4-46.3); Red Blood Count 3.55 M/uL (4.20-5.40); White Blood Count 9.02 K/ul (4.8-10.8)
[2023-05-12 08:30] LABS: Anisocytosis Present; Eosinophils # (auto) 0.08 K/uL (0.00-0.50); Eosinophils % (auto) 0.9 %; Hypochromasia Present; Immature Granulocytes # (auto) 0.12 K/uL (0.01-0.20); Immature Granulocytes % (auto) 1.3 %; Lymphocytes # (auto) 1.05 K/uL (1.20-3.40); Lymphocytes % (auto) 11.6 %; Microcytosis Present; Monocytes # (auto) 0.25 K/uL (0.11-0.59); Monocytes % (auto) 2.8 %; Neutrophils # (auto) 7.52 K/uL (1.40-6.50); Neutrophils % (auto) 83.4 %; Polychromasia 2+; Rouleaux 1+; Schistocytes 1+; Target Cells 1+
[2023-05-12 08:31] LABS: Calcium 7.3 mg/dl (8.6-10.3); Creatinine Clr Calc Pharmacy 71.9 ml/min; Est GFR (African American) 105.9 ml/min; Est GFR (Non-African American) 91.3 ml/min; Potassium 3.3 mmol/L (3.5-5.1)
[2023-05-12] MEDS: ACETAMINOPHEN 1,000 MG/100 ML VIAL IV STA (13:20)
[2023-05-12] MEDS: PANTOprazole 40 MG in SYRINGE 0 ML IV SCH (20:43)
[2023-05-13] MEDS: ACETAMINOPHEN 1,000 MG/100 ML VIAL IV PRN (08:19)
--- NOTE | 2023-05-13 12:39 | Surgery Progress Note ---
Date of Service May 13, 2023 Assessment & Plan (1) Cecum cancer: Plan: POD #5 exploratory laparotomy right hemicolectomy avss drain with cloudy serous drainage Plan: FUll liquids continue IV zosyn once taking PO better can try to start oral pain medications antiemetics as needed ivy hartley to bulb suction encouraged ambulating hallway continue scds and lovenox Admission and Anticipated Discharge Date Admission Date: May 06, 2023 Subjective feeling okay pain controlled with IV tylenol not tolerating clear liquids nausea on and off last bowel movement maybe saturday no flatus today Physical Exam Constitutional: cooperative and comfortable; no acute distress and not ill appearing Respiratory: normal respiratory effort; no respiratory distress and no labored breathing Gastrointestinal (Abdomen): Inspection/Auscultation: abdomen normal to inspection and + abdominal surgical drain present (serous/cloudy less purulent); abdomen not distended Percussion/Palpation: + abdomen tender (RLQ, midline incision) and abdomen soft; no guarding and abdomen not rigid Cloudy serosanguineous drainage from midline incision. there is some necrosis of the skin at the umbilicus and small pinhole opening just inferior to umbilicus with drianage. Skin: no rashes, warm and dry Psychiatric: Orientation: alert and oriented x 3 Results & Data Vital Signs (Past 12 Hours) Vital Signs Temp Pulse Resp BP Pulse Ox O2 Del Method 05/13/23 07:00 37.1 C 60 16 126/60 92 Room Air
--- NOTE | 2023-05-14 09:49 | Surgery Progress Note ---
Date of Service May 14, 2023 Assessment & Plan (1) Cecum cancer: Plan: advance diet begin packing wound IV zosyn ambulate Admission and Anticipated Discharge Date Admission Date: May 06, 2023 Subjective drainage from incision taking po well good BM Review of Systems Constitutional: no fever and no chills Respiratory: no cough and no dyspnea Cardiovascular: no chest pain Gastrointestinal: + abdominal pain; no nausea, no vomiting and no change in bowel habits Genitourinary: no dysuria Neurologic: no localized weakness and no generalized weakness Psychiatric: no behavioral changes Hematologic / Lymphatic: no easy bleeding and no easy bruising Physical Exam Constitutional: WD/WN, vitals as above Respiratory: normal respiratory effort, lungs clear to auscultation Cardiovascular: RRR, no murmur, no edema Gastrointestinal (Abdomen): Inspection/Auscultation: abdomen normal to inspection, normal bowel sounds and + abdominal surgical incision (few bailee removed; minimal drainage; packing placed); abdomen not distended Percussion/ Palpation: + abdomen tender and abdomen soft; no guarding and abdomen not rigid Musculoskeletal: Head/Neck/Chest: normocephalic and head atraumatic Skin: no rashes, warm and dry Results & Data Vital Signs (Past 12 Hours) Vital Signs Temp Pulse Resp BP Pulse Ox O2 Del Method 05/13/23 23:02 36.7 C 55 L 14 120/68 92 Room Air
--- NOTE | 2023-05-15 12:01 | Surgery Progress Note ---
Date of Service May 15, 2023 Assessment & Plan (1) Cecum cancer: Plan: advance diet continue packing wound IV zosyn encouraged patient to start taking oral pain medication prn ambulate PT/OT Discussed with dr. bryan who agrees with above. Admission and Anticipated Discharge Date Admission Date: May 06, 2023 Subjective abdominal pain at incision site alot of drainage from midline incision with packing present tolerating diet minimal nausea soft bowel movements an passing gas Physical Exam Constitutional: WD/WN, vitals as above + frail appearing, cooperative and comfortable; no acute distress and not ill appearing Respiratory: normal respiratory effort; no respiratory distress, no labored breathing and no retractions Gastrointestinal (Abdomen): Inspection/Auscultation: abdomen normal to inspection, normal bowel sounds and + abdominal surgical incision (bailee present intact); abdomen not distended some breakdown at the middle of incision at umbilicus, packing present with serous drainage. no surrounding induration or erythema. Drain with serous output Skin: no rashes, warm and dry Psychiatric: Orientation: alert and oriented x 3 Results & Data Vital Signs (Past 12 Hours) Vital Signs Temp Pulse Resp BP Pulse Ox O2 Del Method 05/15/23 10:39 Room Air 05/15/23 07:11 36.5 C 81 16 147/77 H 96 Room Air
[2023-05-15] MEDS: PANTOprazole 40 MG TAB PO SCH (22:54)
--- NOTE | 2023-05-16 07:32 | Surgery Progress Note ---
Date of Service May 16, 2023 Assessment & Plan (1) Cecum cancer: Plan: continue PT switch to po abx in AM wound healing, minimal drainage CHEYENNE out soon serous drainage Present on Admission?: Yes Admission and Anticipated Discharge Date Admission Date: May 06, 2023 Subjective feels better today taking po PT working to help with ADLs slow progress Review of Systems Constitutional: no fever and no chills Respiratory: no cough and no dyspnea Cardiovascular: no chest pain Gastrointestinal: + abdominal pain; no nausea and no vomit ing Genitourinary: no dysuria Neurologic: + generalized weakness; no localized wea kness Psychiatric: no behavioral changes Physical Exam Constitutional: + thin Respiratory: normal respiratory effort, lungs clear to auscultation Cardiovascular: RRR, no murmur, no edema Gastrointestinal (Abdomen): Inspection/Auscultation: abdomen normal to inspection, + abdomen distended and normal bowel sounds Percussion/Palpation: + abdomen tender and abdomen soft; no guarding and abdomen not rigid Musculoskeletal: Head/Neck/Chest: normocephalic and head atraumatic Skin: no rashes, warm and dry Results & Data Vital Signs (Past 12 Hours) Vital Signs Temp Pulse Resp BP Pulse Ox O2 Del Method 05/15/23 23:00 36.7 C 63 18 137/71 92 Room Air 05/15/23 21:30 Room Air
[2023-05-16] MEDS: traMADol HCL 50 MG TABLET PO PRN (21:49)
--- NOTE | 2023-05-17 11:49 | Surgery Progress Note ---
Date of Service May 17, 2023 Assessment & Plan (1) Cecum cancer: Plan: POD # 11 exploratory laparotomy , right hemicolectomy avss postop pain controlled ivy drain with cloudy serous to milky drainage midline incision wound with cloudy serosanguineous drainage Plan: Continue abx continue pain management continue packing changes to midline incision daily need to determine with case management dispo planning, likely will need home health nursing for wound care and packing changes Discussed with Dr. Khoury who agrees with above. Admission and Anticipated Discharge Date Admission Date: May 06, 2023 Subjective feeling good this morning sitting up in chair, friends at bedside visiting had a good breakfast abdominal pain controlled with tramadol passing gas and liquid bowel movements drain with clear but then milky output Physical Exam Constitutional: cooperative and comfortable; no acute distress, not ill appearing, not diaphoretic and not lethargic Gastrointestinal (Abdomen): Inspection/Auscultation: abdomen normal to inspection, + abdomen distended (mild) and + abdominal surgical incision (clean/dry/intact, bailee) Percussion/Palpation: + abdomen tender (mild at midline incision and rlq) and abdomen soft; no guarding and abdomen not rigid Middle of midline incision open with packing present, cloudy serosanguineous drainage on dressing drain with cloudy serous drainage currently Skin: no rashes, warm and dry Psychiatric: A+Ox3, euthymic affect Results & Data Vital Signs (Past 12 Hours) Vital Signs Temp Pulse Resp BP Pulse Ox O2 Del Method 05/17/23 09:43 Room Air 05/17/23 07:32 36.7 C 70 20 129/83 96 Room Air
[2023-05-17] MEDS ORDERED: HYDROCORTISONE HC 2.5% CRM 30GM TUBE EXT PRN (12:34)
[2023-05-18 07:03] LABS: Basophils # (auto) 0.02 K/uL (0.00-0.20); Basophils % (auto) 0.2 %; Eosinophils # (auto) 0.16 K/uL (0.00-0.50); Eosinophils % (auto) 1.6 %; Hematocrit (blood only) 26.4 % (37.0-47.0); Hemoglobin 8.9 g/dl (12.0-16.0); Immature Granulocytes # (auto) 0.09 K/uL (0.01-0.20); Immature Granulocytes % (auto) 0.9 %; Lymphocytes % (auto) 14.6 %; Mean Corpuscular Hemoglobin 24.2 pg (25.0-34.0); Mean Corpuscular Hgb Conc 33.7 g/dL (32.0-36.0); Mean Corpuscular Volume 71.7 fL (80.0-100.0); Mean Platelet Volume 8.9 fL (9.4-12.4); Monocytes # (auto) 0.53 K/uL (0.11-0.59); Monocytes % (auto) 5.2 %; Neutrophils # (auto) 7.99 K/uL (1.40-6.50); Neutrophils % (auto) 77.5 %; Platelet Count 612 K/uL (130-400); RDW Coefficient of Variation 25.5 % (11.5-14.5); RDW Standard Deviation 63.8 fL (36.4-46.3); Red Blood Count 3.68 M/uL (4.20-5.40); White Blood Count 10.29 K/ul (4.8-10.8)
[2023-05-18 07:29] LABS: BUN Creatinine Ratio 19.1 (10-20); Calcium 7.2 mg/dl (8.6-10.3); Creatinine Clr Calc Pharmacy 71.9 ml/min; Est GFR (African American) 105.9 ml/min; Est GFR (Non-African American) 91.3 ml/min; Potassium 3.6 mmol/L (3.5-5.1)
[2023-05-18 07:56] LABS: Anisocytosis Present; Hypochromasia Present; Microcytosis Present; Polychromasia 1+
--- NOTE | 2023-05-18 11:57 | Surgery Progress Note ---
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 Discussed with both patient and her son (via phone). CHEYENNE drain is still cloudy serous so unlikely to be leaking intrabdominally but will check CT scan with PO and IV contrast to rule out abscess and try to see where in small bowel (proximal vs distal) the fistula is located. Explained the role o f wound care and ostomy appliance applied to collect drainage. Will make npo until CT scan. Explained that most of these will heal without needing further surgery; may require bowel rest or IV nutrition or may be able to feed orally depending on location of fistula. All questions answered. Message via [employer] sent to Dr. Khoury notifying him of change/ plan. Continue antibiotics for now. Keep CHEYENNE drain. Admission and Anticipated Discharge Date Admission Date: May 06, 2023 Subjective Patient is very anxious as her wound has been draining significantly more. The nurses looked at it and thought they saw stool. She is quite upset and wondering if she needs to go back to surgery. She denies any abdominal pain. She is not having any nausea or vomiting. She was tolerating a diet prior to this being noticed. Physical Exam Constitutional: WD/WN, vitals as above Respiratory: normal respiratory effort, lungs clear to auscultation Cardiovascular: Rate/Rhythm: regular rate and regular rhythm Gastrointestinal (Abdomen): Inspection/Auscultation: + abdomen distended (mild), + abdominal surgical incision (bilious enteric contents leaking from wound) and + abdominal surgical drain present (yellow/ clear) Percussion/Palpation: abdomen soft; abdomen nontender and no guarding enteric contents appear to be originating along inferior aspect of wound - remaining inferior bailee removed. no dehiscence noted. Neurologic: awake; no focal motor deficits Psychiatric: anxious, tearful Results & Data Vital Signs (Past 12 Hours) Vital Signs Temp Pulse Resp BP Pulse Ox O2 Del Method 05/18/23 07:28 36.9 C 67 18 144/76 H 95 Room Air Laboratory Results Abnormal lab results 05/18/23 Range/Units 06:29 RBC 3.68 L (4.20-5.40) M/uL Hgb 8.9 L (12.0-16.0) g/dl Hct 26.4 L (37.0-47.0) % MCV 71.7 L (80.0-100.0) fL MCH 24.2 L (25.0-34.0) pg RDW Std Deviation 63.8 H (36.4-46.3) fL RDW Coeff of Brad 25.5 H (11.5-14.5) % Plt Count 612 H (130-400) K/uL MPV 8.9 L (9.4-12.4) fL Neut # (Auto) 7.99 H (1.40-6.50) K/uL Anion Gap 2 L (3-11) Creatinine 0.47 L (0.6-1.2) mg/dl Calcium 7.2 L (8.6-10.3) mg/dl
[2023-05-18] MEDS: OPTIRAY 320 100ml IV ONE (14:45)
--- NOTE | 2023-05-18 19:59 | CT Scan Report ---
CT abd pelvis oral and IV con CLINICAL HISTORY: enterocutaneous fistula TECHNIQUE: Helical axial images of the abdomen and pelvis were obtained and displayed. Automated dose lowering techniques and/or adjustment according to patient size were utilized for this exam. This e xam was performed with intravenous contrast. CT DOSE: 665.94 mGy.cm COMPARISON: Comparison is made to CT abdomen pelvis 04/05/2023 FINDINGS: Lower chest: Moderate bilateral pleural effusions are seen with underlying atelectasis. Liver: Unremarkable. No focal lesions are seen. Gallbladder and biliary tree: No calcified gallstones. Normal caliber wall. No intra- or extrahepatic biliary ductal dilation. Pancreas: Unremarkable, no focal lesions. Spleen: Unremarkable. Adrenals: Mild adrenal thickening is seen bilaterally. Kidneys and ureters: Renal cysts are seen. Bladder: Limited evaluation due to underdistention. Reproductive organs: Unremarkable. Bowel: Postsurgical changes are seen in the cecum. There is a loop of small bowel are closely approxi mates the abdominal wound with some suggestion of tethering. Lymph nodes Retroperitoneal: Unremarkable. Pelvic: Unremarkable. Mesenteric: Unremarkable. Peritoneum: Surgical drain is seen terminating in the inferior aspect of the liver. Soft tissue stran ding is seen. Vessels: Atherosclerotic calcifications are seen. Abdominal wall: Midline abdominal incision is seen within open component in the inferior aspect of th e incision. Subcutaneous emphysema is seen in the right greater than left oblique abdominal musculatu re. Body wall edema is seen. Bones: Degenerative changes in the visualized spine. IMPRESSION: 1. There is tethering of a loop of small bowel closely approximating the inferior, open aspect of th e abdominal wound. Enterocutaneous fistula is not definitely visualized but is impossible to exclude. 2. Post surgical changes are seen in the cecum with an abdominal drain in place. 3. Moderate bilateral pleural effusions with underlying atelectasis. Body wall edema. ACT 112: Negative or not required by law. Electronically signed by: Audie Lake M.D. 05/18/2023 7:57 PM
--- NOTE | 2023-05-19 12:15 | Surgery Progress Note ---
Date of Service May 19, 2023 Assessment & Plan (1) Cecum cancer: Plan: POD # 13 exploratory laparotomy , right hemicolectomy now with enterocutaneous fistula. CT scan shows no sign of intra-abdominal infection. Will advance to regular diet and keep track of fistula output. If no increase with diet, can continue PO. On IV antibiotics. Labs OK with no leukocytosis. Admission and Anticipated Discharge Date Admission Date: May 06, 2023 Subjective Very anxious and tearful over diagnosis. Hungry for food. No nausea or vomiting with full liquids. Ostomy over the EC fistula. Physical Exam Constitutional: WD/WN, vitals as above Gastrointestinal (Abdomen): Inspection/Auscultation: + abdomen distended (mild), normal bowel sounds, + abdominal surgical incision (thick enteric contents in ostomy bag) and + abdominal surgical drain present (yellow/ clear) Percussion/Palpation: abdomen soft; abdomen nontender and no guarding Neurologic: awake; no focal motor deficits Results & Data Vital Signs (Past 12 Hours) Vital Signs Temp Pulse Resp BP Pulse Ox O2 Del Method 05/19/23 07:25 36.8 C 65 18 137/78 97 Room Air Diagnostic Findings CT scan shows no intra-abdominal abscess. CT abd pelvis oral and IV con CLINICAL HISTORY: enterocutaneous fistula TECHNIQUE: Helical axial images of the abdomen and pelvis were obtained and displayed. Automated dose lowering techniques and/or adjustment according to patient size were utilized for this exam. This exam was performed with intravenous contrast. CT DOSE: 665.94 mGy.cm COMPARISON: Comparison is made to CT abdomen pelvis 04/05/2023 FINDINGS: Lower chest: Moderate bilateral pleural effusions are seen with underlying atelectasis. Liver: Unremarkable. No focal lesions are seen. Gallbladder and biliary tree: No calcified gallstones. Normal caliber wall. No intra- or extrahepatic biliary ductal dilation. Pancreas: Unremarkable, no focal lesions. Spleen: Unremarkable. Adrenals: Mild adrenal thickening is seen bilaterally. Kidneys and ureters: Renal cysts are seen. Bladder: Limited evaluation due to underdistention. Reproductive organs: Unremarkable. Bowel: Postsurgical changes are seen in the cecum. There is a loop of small bowel are closely approximates the abdominal wound with some suggestion of tethering. Lymph nodes Retroperitoneal: Unremarkable. Pelvic: Unremarkable. Mesenteric: Unremarkable. Peritoneum: Surgical drain is seen terminating in the inferior aspect of the liver. Soft tissue stranding is seen. Vessels: Atherosclerotic calcifications are seen. Abdominal wall: Midline abdominal incision is seen within open component in the inferior aspect of the incision. Subcutaneous emphysema is seen in the right greater than left oblique abdominal musculature. Body wall edema is seen. Bones: Degenerative changes in the visualized spine. IMPRESSION: 1. There is tethering of a loop of small bowel closely approximating the inferior, open aspect of the abdominal wound. Enterocutaneous fistula is not definitely visualized but is impossible to exclude. 2. Post surgical changes are seen in the cecum with an abdominal drain in place. 3. Moderate bilateral pleural effusions with underlying atelectasis. Body wall edema.
--- NOTE | 2023-05-20 08:58 | Surgery Progress Note ---
Date of Service May 20, 2023 Assessment & Plan (1) Cecum cancer: Plan: Midline fistula Low output and will continue low fiber diet If output increases will need to make n.p.o. and placed on TPN Otherwise clinically doing well. Admission and Anticipated Discharge Date Admission Date: May 06, 2023 Subjective Patient feels okay Taking p.o. without nausea vomiting Fistula output less than 50 cc in 12 hours. Pain control Having BMs. Review of Systems Constitutional: no fever and no chills Respiratory: no cough and no dyspnea Cardiovascular: no chest pain Gastrointestinal: + abdominal pain; no nausea and no vomit ing Genitourinary: no dysuria Neurologic: + generalized weakness; no localized wea kness Psychiatric: no behavioral changes Physical Exam Constitutional: WD/WN, vitals as above Respiratory: normal respiratory effort, lungs clear to auscultation Cardiovascular: RRR, no murmur, no edema Gastrointestinal (Abdomen): Inspection/Auscultation: normal bowel sounds; abdomen not distended Percussion/Palpation: + abdomen tender and abdomen soft; no guarding and abdomen not rigid Midline fistula with 50 cc of output. Skin: no rashes, warm and dry Results & Data Vital Signs (Past 12 Hours) Vital Signs Temp Pulse Resp BP Pulse Ox O2 Del Method 05/20/23 07:49 36.4 C L 58 L 16 156/75 H 96 Room Air
[2023-05-20] MEDS: PIPERACILLIN/TAZOBACTAM 4.5 GM in DEXTROSE 5% MINI-B 100 ML IV SCH (20:37)
--- NOTE | 2023-05-21 10:16 | Surgery Progress Note ---
Date of Service May 21, 2023 Assessment & Plan (1) Cecum cancer: Plan: POD # 15 s/p ex lap, right hemicolectomy avss postop pain controlled Midline enterocutaneous fistula Low output and will continue low fiber diet If output increases will need to make n.p.o. and placed on TPN Otherwise clinically doing well. continue IV zosyn Dr. Khoury has seen and examined patient, agrees with above. Admission and Anticipated Discharge Date Admission Date: May 06, 2023 Subjective feeling good this morning leaked from ostomy appliance, wafer was not completely secured, minimal output abdominal pain generalized, controlled no n,v tolerated diet urinating without difficulty ambulating Physical Exam Constitutional: WD/WN, vitals as above cooperative and comfortable; no acute distress and not ill appearing Respiratory: normal respiratory effort; no respiratory distress, no labored breathing and no retractions Gastrointestinal (Abdomen): Inspection/Auscultation: abdomen normal to inspection, + abdominal surgical incision (midline incision with ostomy appliance, minimal stool output) and + abdominal surgical drain present (RLQ with serous output); abdomen not distended Percussion/Palpation: + abdomen tender (generalized) and abdomen soft; no guarding, abdomen not rigid and abdomen not firm Skin: no rashes, warm and dry Psychiatric: Orientation: alert and oriented x 3 Results & Data Vital Signs (Past 12 Hours) Vital Signs Temp Pulse Resp BP Pulse Ox O2 Del Method 05/21/23 08:00 Room Air 05/21/23 07:50 36.6 C 64 16 160/76 H 94 Room Air
--- NOTE | 2023-05-22 14:29 | Surgery Progress Note ---
Date of Service May 22, 2023 Assessment & Plan (1) Cecum cancer: Plan: drainage low and not currently feculent will watch; if drainage con't to be serous then potentially place wound vac low fiber diet IV zosyn Admission and Anticipated Discharge Date Admission Date: May 06, 2023 Subjective still with some abdominal pain drainage from fistula 50cc, mostly serous currently eating OK Review of Systems Constitutional: no fever and no chills Respiratory: no cough and no dyspnea Cardiovascular: no chest pain Gastrointestinal: + abdominal pain and + change in bowel h abits; no nausea and no vomiting Genitourinary: no dysuria Musculoskeletal: no back pain Psychiatric: no behavioral changes Physical Exam Constitutional: WD/WN, vitals as above Respiratory: normal respiratory effort, lungs clear to auscultation Cardiovascular: RRR, no murmur, no edema Gastrointestinal (Abdomen): Inspection/Auscultation: normal bowel sounds and + abdominal surgical incision (fistula); abdomen not distended Percussion/Palpation: + abdomen tender and abdomen soft; no guarding and abdomen not rigid Musculoskeletal: Head/Neck/Chest: normocephalic and head atraumatic Skin: no rashes, warm and dry Results & Data Vital Signs (Past 12 Hours) Vital Signs Temp Pulse Resp BP Pulse Ox O2 Del Method 05/22/23 08:00 Room Air 05/22/23 07:51 36.7 C 63 16 143/70 H 95 Room Air
[2023-05-23] MEDS ORDERED: ACETAMINOPHEN 325 MG TAB PO PRN (08:27)
--- NOTE | 2023-05-23 10:05 | Surgery Progress Note ---
Date of Service May 23, 2023 Assessment & Plan (1) Cecum cancer: Plan: drainage looks feculent today low fiber diet continue IV zosyn alternate TYlenol and Ibuprofen for pain as needed wound care nurse following will discuss with case management again on dispo planning with home health as patient states her grandson is leaving for [place] tomorrow (initial plan was for her to go home with home staying with her and home health) Discussed with Dr. Khoury Admission and Anticipated Discharge Date Admission Date: May 06, 2023 Subjective intermittent pain , increases in severity at times tolerating diet no n,v urinating without difficulty formed bowel movement this morning states her grandson is leaving to go back to [place] tomorrow Physical Exam Constitutional: WD/WN, vitals as above cooperative and comfortable; no acute distress and not ill appearing Respiratory: normal respiratory effort; no respiratory distress Gastrointestinal (Abdomen): Inspection/Auscultation: abdomen normal to inspection, + abdominal surgical incision (open wound with packing present, cloudy feculent drainage in bag, tender ) and + abdominal surgical drain present (RLQ drain with serous output); abdomen not distended and + abnormal bowel sounds Percussion/Palpation: + abdomen tender (RLQ and at midline incision) and abdomen soft; no guarding, abdomen not rigid and abdomen not firm Skin: no rashes, warm and dry Psychiatric: Orientation: alert and oriented x 3 Results & Data Vital Signs (Past 12 Hours) Vital Signs Temp Pulse Resp BP Pulse Ox O2 Del Method 05/23/23 08:11 36.3 C L 64 16 161/74 H 99 Room Air 05/23/23 07:41 Room Air
[2023-05-23] MEDS: lisinopril 20 MG TAB PO SCH (10:08)
--- NOTE | 2023-05-24 06:47 | Surgery Progress Note ---
Date of Service May 24, 2023 Assessment & Plan (1) Cecum cancer: Plan: low output fistula con't low fiber con't IV zosyn drain serous work with PT here over weekend Admission and Anticipated Discharge Date Admission Date: May 06, 2023 Subjective still with some abdominal pain minimal drainage from fistula IV zosyn Review of Systems Constitutional: no fever and no chills Respiratory: no cough and no dyspnea Cardiovascular: no chest pain Gastrointestinal: + abdominal pain and + change in bowel h abits (having BMs); no nausea and no vomiting Genitourinary: no dysuria Musculoskeletal: no back pain Neurologic: + generalized weakness; no localized wea kness Psychiatric: no behavioral changes Physical Exam Constitutional: + thin Respiratory: normal respiratory effort, lungs clear to auscultation Cardiovascular: RRR, no murmur, no edema Gastrointestinal (Abdomen): Inspection/Auscultation: abdomen normal to inspection, + abdomen distended and normal bowel sounds Percussion/Palpation: + abdomen tender and abdomen soft; no guarding and abdomen not rigid fistula Musculoskeletal: Head/Neck/Chest: normocephalic and head atraumatic Results & Data Vital Signs (Past 12 Hours) Vital Signs Temp Pulse Resp BP Pulse Ox O2 Del Method 05/23/23 19:27 Room Air 05/23/23 19:24 36.7 C 77 16 169/71 H 97 Room Air
[2023-05-24] MEDS ORDERED: Nursing to Pharmacy Communication SCH (17:15)
--- NOTE | 2023-05-25 05:51 | Surgery Progress Note ---
Date of Service May 25, 2023 Assessment & Plan (1) Cecum cancer: Plan: Patient is status post right hemicolectomy on 05/06/2023 (postoperative day #19) Patient now has a low output fistula; continue local wound care Continue analgesics as needed Continue antiemetics as needed Continue diet as tolerated Continue CHEYENNE drain to self suction Continue antibiotics in form of Zosyn Continue to mobilize as able Lovenox is in place for DVT prevention Admission and Anticipated Discharge Date Admission Date: May 06, 2023 Supervising Physician Co-Signing Physician Notes pnt S&E, agree w/ above. S/p right katherine now w/ EC fistula. abd appropriately ttp, no infx, ostomy bag over fistula. continue current management Subjective Patient is resting comfortably in bed. She notes abdominal tenderness near her surgical incision. She is tolerating solid food without any nausea, vomiting, or worsening abdominal pain. Patient reports that she has been able to walk independently since her surgery and offers no additional complaints. She does note that her bowels are moving. Physical Exam Gastrointestinal (Abdomen): Abdomen is soft and nonrigid. Bowel sounds are present. Incision is intact with bailee with small open area covered by an ostomy bag. There is minimal drainage noted at this time. CHEY[place]NE drain is in place draining serous fluid and has drained 105 cc over the past 24 hours. Appropriate tenderness is noted near surgical incision. Results & Data Vital Signs (Past 12 Hours) Vital Signs Temp Pulse Resp BP Pulse Ox O2 Del Method 05/24/23 20:08 36.9 C 58 L 16 129/68 96 Room Air PG Care Time/CCT Total # of Minutes Spent Total Time Spent with Patient: Total time spent is greater than 50% in coordination of care (as documented) at patient's floor/unit and/or counseling patient: Coding Level of Care Code 68747 Post Operative Follow-Up Diagnoses Cecum cancer C18.0
--- NOTE | 2023-05-26 05:41 | Surgery Progress Note ---
Date of Service May 26, 2023 Assessment & Plan (1) Cecum cancer: Plan: Patient is status post right hemicolectomy on 05/06/2023 (postoperative day #20) Patient now has a low output enterocutaneous fistula; continue local wound care Provide analgesics as needed Provide antiemetics as needed Maintain current diet as tolerated Continue CHEYENNE drain to self suction Continue antibiotics in form of Zosyn Continue to encourage ambulation Lovenox is in place for DVT prevention Admission and Anticipated Discharge Date Admission Date: May 06, 2023 Subjective Patient is resting comfortably in bed. She continues to no abdominal tenderness around her surgical incision. She continues to tolerate solid food and notes that this does not cause any nausea or vomiting and does not exacerbate any abdominal pain. Patient continues to ambulate independently she notes that her bowels have moved since surgery. Physical Exam Gastrointestinal (Abdomen): Abdomen is soft and nondistended. Fistulous area of incision is covered with a ostomy bag and does not appear to have any purulent drainage. CHEYENNE drain is in place and is draining serous fluid and drained 135 cc yesterday. Results & Data Vital Signs (Past 12 Hours) Vital Signs Temp Pulse Resp BP Pulse Ox O2 Del Method 05/25/23 19:23 36.6 C 59 L 16 147/82 H 97 Room Air PG Care Time/CCT Total # of Minutes Spent Total Time Spent with Patient: Total time spent is greater than 50% in coordination of care (as documented) at patient's floor/unit and/or counseling patient: Coding Level of Care Code 70771 Post Operative Follow-Up Diagnoses Cecum cancer C18.0
--- NOTE | 2023-05-27 12:15 | Surgery Progress Note ---
Date of Service May 27, 2023 Assessment & Plan (1) Cecum cancer: Plan: minimal drainage from fistual IV zosyn likely 1-2 more days drian out soon placement hopefully later this weekthis week Present on Admission?: Yes Admission and Anticipated Discharge Date Admission Date: May 06, 2023 Subjective some pain drainage minimal Review of Systems Constitutional: no fever and no chills Respiratory: no cough and no dyspnea Cardiovascular: no chest pain Gastrointestinal: + abdominal pain; no nausea and no vomit ing Genitourinary: no dysuria Physical Exam Constitutional: WD/WN, vitals as above Respiratory: normal respiratory effort, lungs clear to auscultation Cardiovascular: RRR, no murmur, no edema Gastrointestinal (Abdomen): Inspection/Auscultation: normal bowel sounds; abdomen not distended Percussion/Palpation: + abdomen tender and abdomen soft; no guarding and abdomen not rigid fistula Results & Data Vital Signs (Past 12 Hours) Vital Signs Temp Pulse Resp BP Pulse Ox O2 Del Method 05/27/23 07:00 36.7 C 58 L 16 166/68 H 96 Room Air
[2023-05-28 07:28] LABS: Basophils # (auto) 0.03 K/uL (0.00-0.20); Basophils % (auto) 0.4 %; Eosinophils # (auto) 0.27 K/uL (0.00-0.50); Eosinophils % (auto) 3.7 %; Hematocrit (blood only) 25.8 % (37.0-47.0); Hemoglobin 8.4 g/dl (12.0-16.0); Immature Granulocytes # (auto) 0.02 K/uL (0.01-0.20); Immature Granulocytes % (auto) 0.3 %; Lymphocytes # (auto) 1.31 K/uL (1.20-3.40); Lymphocytes % (auto) 17.9 %; Mean Corpuscular Hemoglobin 24.2 pg (25.0-34.0); Mean Corpuscular Hgb Conc 32.6 g/dL (32.0-36.0); Mean Corpuscular Volume 74.4 fL (80.0-100.0); Mean Platelet Volume 8.7 fL (9.4-12.4); Monocytes # (auto) 0.65 K/uL (0.11-0.59); Monocytes % (auto) 8.9 %; Neutrophils # (auto) 5.04 K/uL (1.40-6.50); Neutrophils % (auto) 68.8 %; Platelet Count 404 K/uL (130-400); RDW Standard Deviation 69.7 fL (36.4-46.3); Red Blood Count 3.47 M/uL (4.20-5.40); White Blood Count 7.32 K/ul (4.8-10.8)
[2023-05-28 07:37] LABS: BUN Creatinine Ratio 23.2 (10-20); Calcium 8.3 mg/dl (8.6-10.3); Creatinine Clr Calc Pharmacy 60.3 ml/min; Est GFR (African American) 99.9 ml/min; Est GFR (Non-African American) 86.2 ml/min; Potassium 3.4 mmol/L (3.5-5.1)
[2023-05-28 07:59] LABS: Anisocytosis Present; Polychromasia 1+
--- NOTE | 2023-05-28 09:51 | Surgery Progress Note ---
Date of Service May 28, 2023 Assessment & Plan (1) Cecum cancer: Plan: wound granulating; potentially wound vac; once feculent drainage is completely gone con't PT abx stop tomorrow drain serous eating fairly well Present on Admission?: Yes Admission and Anticipated Discharge Date Admission Date: May 06, 2023 Subjective good progress with ambulation minimal fistula drainage having BMs pain pretty well controlled Review of Systems 2 Constitutional: no fever and no chills Respiratory: no cough and no dyspnea Cardiovascular: no chest pain Gastrointestinal: + abdominal pain; no nausea, no vomiting and no change in bowel habits Genitourinary: no dysuria Physical Exam Constitutional: WD/WN, vitals as above Respiratory: normal respiratory effort, lungs clear to auscultation Cardiovascular: RRR, no murmur, no edema Gastrointestinal (Abdomen): Inspection/Auscultation: normal bowel sounds; abdomen not distended Percussion/Palpation: + abdomen tender and abdomen soft; no guarding and abdomen not rigid open granulating wound/fistula; mostly serous drainage Results & Data Vital Signs (Past 12 Hours) Vital Signs Temp Pulse Resp BP Pulse Ox O2 Del Method 05/28/23 07:51 36.7 C 61 16 166/82 H 95 Room Air
--- NOTE | 2023-05-29 10:50 | Surgery Progress Note ---
Date of Service May 29, 2023 Assessment & Plan (1) Cecum cancer: Plan: syop abx possible wound vac soon PT taking po ambulate Admission and Anticipated Discharge Date Admission Date: May 06, 2023 Subjective pain improved fistula drainage slowing possible wound vac soon taking po fairly well Review of Systems Constitutional: no fever and no chills Respiratory: no cough and no dyspnea Cardiovascular: no chest pain Gastrointestinal: + abdominal pain; no nausea, no vomiting and no change in bowel habits Genitourinary: no dysuria Physical Exam Constitutional: WD/WN, vitals as above Respiratory: normal respiratory effort, lungs clear to auscultation Cardiovascular: RRR, no murmur, no edema Gastrointestinal (Abdomen): Inspection/Auscultation: abdomen normal to inspection and normal bowel sounds; abdomen not distended Percussion/Palpation: + abdomen tender and abdomen soft; no guarding and abdomen not rigid Musculoskeletal: Head/Neck/Chest: + abnormal head shape and + evidence of head trauma Skin: no rashes, warm and dry Results & Data Vital Signs (Past 12 Hours) Vital Signs Temp Pulse Resp BP Pulse Ox O2 Del Method 05/29/23 07:12 36.6 C 59 L 17 179/70 H 96 Room Air
--- NOTE | 2023-05-30 11:17 | Surgery Progress Note ---
Date of Service May 30, 2023 Assessment & Plan (1) Cecum cancer: Plan: fistula resolving wound vac maybe next week regular diet PT Admission and Anticipated Discharge Date Admission Date: May 06, 2023 Subjective c/o right flank pain taking po well minimal fistula output Review of Systems Constitutional: no fever and no chills Respiratory: no cough and no dyspnea Cardiovascular: no chest pain Gastrointestinal: + abdominal pain; no nausea, no vomiting and no change in bowel habits Genitourinary: no dysuria Physical Exam Constitutional: WD/WN, vitals as above Respiratory: normal respiratory effort, lungs clear to auscultation Cardiovascular: RRR, no murmur, no edema Gastrointestinal (Abdomen): Inspection/Auscultation: + abdomen distended and normal bowel sounds; + abdomen abnormal to inspection (fistula; good granulation) Percussion/Palpation: + abdomen tender and abdomen soft; no guarding and abdomen not rigid Musculoskeletal: Head/Neck/Chest: normocephalic and head atraumatic Results & Data Vital Signs (Past 12 Hours) Vital Signs Temp Pulse Resp BP Pulse Ox O2 Del Method 05/30/23 07:18 36.6 C 60 16 173/75 H 95 Room Air
--- NOTE | 2023-05-31 09:23 | Surgery Progress Note ---
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
--- NOTE | 2023-06-01 09:41 | Consultation ---
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 Pain control adjusted to stop NSAIDs and continue with scheduled Tylenol wtih Tramadol for breakthrough pain Patient was counseled on this change and understands that she can refuse any medication she doesn't feel she needs. (2) Post-operative state: (3) Hypertension: Long standing well controlled HTN on lisinopril 20mg Po qaM. Elevation in BP seen post operatively is likely multifactorial including ongoing NSAID use, which can reduce sodium excretion in the kidney and increase the intravascular volume. Also affecting BP is her ongoing discomfort. She is eating well and reports swelling in her lower extremities which may be a result of the NSAID use. Stopped Ibuprofen and scheduled Tylenol instead. Start low dose HCTZ and monitor BMP. Patient was counseled on the diuretic effect of this drug which will only be given in the morning. (4) Anemia: post operative anemia s/p 3 units pRBCs, stable. (5) Renal cyst: per primary team DVT prophy: patient refused Lovenox but is ambulating Full Code Dispo-per primary team I spent a total [id number] coordinating, documenting, and providing care for this patient excluding time spent in the performance of separately billed services Kae Kahn DO [facility] Hospitalist History of Present Illness Requesting Physician: Linda Souza PA-C Reason for Consultation: HTN management Attending Physician: Bartolo Khoury MD History of Present Illness 83 yo F presented for an elective open right colon resection at [facility] on 05/06/23 for an ill-defined masslike enlargement of the cecum and terminal ileum concerning for colonic carcinoma with metastatic disease to regional lymph nodes. This right hemicolectomy was performed as planned on 05/[address] Khoury where tumor was noted to be invading the right abdominal wall muscle. 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 She was transfused 3 units of pRBCs for post operative anemia. Intravenous toradol and tylenol were used for pain control. A diet of clears was started on 05/07. On 05/09 purulent drainage was noted from her drain and she had some nausea and mild distension of her abdomen. she went back to ice chips/sips and IV Zosyn was started. Perioperative clindamycin was administered (05/05-05/08). Over the next few days her diet was advanced again and her abx were continued through 05/19. 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 A repeat CT a/p was performed. The fistula output was low and her low fiber diet was continued. We were consulted for rising blood pressure which is now 160-170 systolic on average. Notably she is on consistent Ibuprofen for pain control and has been on this for over one week. She is on her home lisinopril 20mg PO qaM and per outpatient record review has had very control with this therapy in recent months. Today she reports persistent soreness in the lower right abdomen. This area has a CHEYENNE drain in place with minimal clear fluid and the surgical incision site is covered with an Optifoam after manipulation this morning by the rounding surgeon. The patient was hesitant for me to remove this dressing, so this was not manipulated. She reports feeling her pain is well controlled aside from some soreness and doesn't feel she has any times of the day where her pain is worse. ROS reveals swelling in her feet. She reports walking on "elephant feet" but is moving aorund. Allergies Allergy/AdvReac Type Severity Reaction Status Date / Time azithromycin Allergy Diarrhea Verified 05/06/23 10:03 Cephalosporins Allergy unsure of Verified 05/06/23 10:03 reaction methylprednisolone AdvReac Severe [place] like Verified 05/06/23 10:36 back and stomach were on fire. aspirin AdvReac Unknown "made me Verified 05/06/23 10:36 feel weird" Home Medications Medication Instructions Recorded Confirmed Type lisinopril 20 mg tablet 20 mg PO QAM 04/30/20 05/06/23 History tramadol 50 mg tablet 50 mg PO BID PRN pain #11 tabs 04/05/23 05/06/23 Rx acetaminophen 500 mg tablet 500 mg PO Q6H PRN Pain 05/06/23 05/06/23 History Patient History Medical History (Updated 06/01/23 @ 11:18 by Kae Kahn, DO) Hypertension Cecum cancer Hip pain, right Anxiety Hx of migraines Smoker Age related osteoporosis Vaginal vault prolapse after hysterectomy Hypercholesterolemia Surgical History (Updated 04/20/24 @ 11:11 by Kae Kahn DO) Hx of hysterectomy w/ removal remaining fallopian tube and ovary Hx of unilateral oophorectomy w/removal appendix>also removed "a 25 lb chocolate cyst and chocolate fluid" Social History Smoking Status: Current every day smoker Tobacco Type: Cigarettes Cigarettes Per Day: 1 ppd; Second Hand Exposure: Yes (childhood); Do You Dip or Chew Tobacco: No; Tobacco Cessation Education Requested by Patient: No Hx Alcohol Use: No Hx Substance Use: No Preferred Language: Indonesian Communication Ability: Effective Manager Clinic Required: No Beliefs That Will Affect Care: None Current Living Situation: Alone Other Information That Helps Us Care for You: No Feels Safe at Home: Yes Safety Concerns: Feels Safe At This Time Assistive Devices: None Physical Exam Physical Exam: CONSTITUTIONAL: WNWD, vitals as above, generally well-appearing EYES: pupils are round and equal iblaterally, normal conjunctivae, no scleral icterus ENT: external ear and nose normal, oropharynx clear, MMM NECK: trachea midline RESPIRATORY: clear to auscultation bilaterally, no crackles, rales or wheezes, normal respiratory effort CARDIOVASCULAR: regular rate and rhythm, S1 and 2 heard without murmurs, gallops or rubs, no JVD, no peripheral edema, bilateral swelling in her feet and distal legs bilaterally. CHEST: inspection of chest was normal GASTROINTESTINAL: soft, nontender, ND, EC fistula in place in the RLQ up to the umbilicus-covered with Optifoam, +CHEYENNE drain in this place. Jose with a vertical incision rising up proximal to the optifoam are intact with good closure and wound healing observed. MUSCULOSKELETAL: strength 5/5 throughout, head is normocephalic and atraumatic SKIN: warm and dry NEUROLOGIC: CN 2-12 grossly intact, no sensory deficit, normal cognition, normal speech, no tremor PSYCHIATRIC: alert cooperative and oriented to person, place and time. Euthymic mood, makes good eye contact, language grossly intact, recent and remote memory grossly intact. Results & Data Vital Signs (Past 12 Hours) Vital Signs Temp Pulse Pulse Resp BP Pulse Ox O2 Del Method 06/01/23 09:35 62 160/78 H 06/01/23 07:30 Room Air 06/01/23 06:53 36.9 C 60 18 171/84 H 95 Room Air Medications Administered Current Inpatient Medications Acetaminophen (Acetaminophen 325 Mg Tab) 650 mg PO TID [facility] Stop: 07/01/23 13:59 Al Hydrox/Mg Hydrox/Simethicone (Aluminum/Magnesium Susp 30 Ml Udc) 30 ml PO Q6H PRN PRN Reason: Dyspepsia Stop: 06/05/23 16:43 Enoxaparin Sodium (Enoxaparin Inj 40 Mg/0.4 Ml Syr) 40 mg SQ Q24H [facility] Stop: 06/05/23 16:59 Last Admin: 05/31/23 19:26 Dose: Not Given Lisinopril/HCTZ (Lisinopril/Hctz 20/12.5mg 1 Tab Tab) 1 tab PO QAM [facility] Stop: 07/02/23 08:59 Hydrocortisone (Hydrocortisone Hc 2.5% Crm 30gm Tube) 1 appln EXT TID PRN PRN Reason: Hemorrhoids Stop: 06/16/23 12:33 Promethazine HCl 12.5 mg/ (Sodium Chloride) 50.5 mls @ 202 mls/hr IV Q6H PRN PRN Reason: Nausea And Vomiting Stop: 06/09/23 11:02 Last Infusion: 05/10/23 12:01 Dose: Infused Ibuprofen (Ibuprofen 600 Mg Tab) 600 mg PO Q8H [facility] Stop: 06/07/23 15:29 Last Admin: 06/01/23 08:06 Dose: 600 mg Ondansetron HCl (Ondansetron Inj 2 Mg/Ml 2 Ml Vial) 4 mg IV Q6H PRN PRN Reason: Nausea Stop: 06/05/23 16:43 Last Admin: 05/12/23 18:04 Dose: 4 mg Pantoprazole Sodium (Pantoprazole 40 Mg Tab) 40 mg PO BID [facility]; Protocol Stop: 06/14/23 20:59 Last Admin: 06/01/23 08:07 Dose: 40 mg Tramadol HCl (Tramadol Hcl 50 Mg Tablet) 50 mg PO Q4H PRN PRN Reason: pain (4+) Stop: 06/09/23 11:02 (3) Hypertension Hypertension type: primary hypertension Qualified Code(s): I10 - Essential (primary) hypertension (4) Anemia Anemia type: unspecified type Qualified Code(s): D64.9 - Anemia, unspecified
--- NOTE | 2023-06-01 09:58 | Surgery Progress Note ---
Date of Service June 01, 2023 Assessment & Plan (1) Cecum cancer: Plan: patient here s/p R hemicolectomy for cecal mass. during hospitalization developed an ECF which is now low to minimal output She is tolerating diet, no nausea/vomiting. + bowel function, will continue to monitor if worsening distention Wound noted and dr. cooper removed 2 blue prolene sutures and used some scissors to remove some yellow/white slough material The wound was re-dressed with aquacel and optifoam dressing per wound care's recommendations There has been some concerns for HTN not managed by her home medications throughout her stay, will ask medicine to weigh in for any changes in her regimen Pt seen/examined w/ Dr. Cooper Admission and Anticipated Discharge Date Admission Date: May 06, 2023 Supervising Physician Co-Signing Physician Notes as per Linda MARTINEZ Subjective Patient feeling okay. Reports some R sided abdominal pain and a little bit of distention. She is passing gas and BMs. Otherwise tolerating a diet without nausea/vomiting. Physical Exam Physical Exam: awake/alert, no distress Respiratory: normal respiratory effort Gastrointestinal (Abdomen): Inspection/Auscultation: + abdomen distended (mild) and + abdominal surgical drain present (serous) Percussion/Palpation: abdomen soft inferior portion of abdominal wound open with pink base and some slough and 2 blue prolene sutures noted Results & Data Vital Signs (Past 12 Hours) Vital Signs Temp Pulse Pulse Resp BP Pulse Ox O2 Del Method 06/01/23 09:35 62 160/78 H 06/01/23 07:30 Room Air 06/01/23 06:53 98.4 F 60 18 171/84 H 95 Room Air PG Care Time/CCT Total # of Minutes Spent Total Time Spent with Patient: Total time spent is greater than 50% in coordination of care (as documented) at patient's floor/unit and/or counseling patient: Coding Level of Care Code 60876 SUB INP/OBS CARE 03/07MIN Diagnoses Cecum cancer C18.0
[2023-06-01] MEDS: hydroCHLOROthiazide 25 MG TAB PO STA (10:54)
[2023-06-01] MEDS: ACETAMINOPHEN 325 MG TAB PO SCH (13:55)
[2023-06-01] MEDS: amLODIPine BESYLATE 5 MG TAB PO ONE (22:52)
[2023-06-01 23:21] LABS: Calcium 8.4 mg/dl (8.6-10.3); Creatinine Clr Calc Pharmacy 70.4 ml/min; Est GFR (African American) 105.1 ml/min; Est GFR (Non-African American) 90.7 ml/min; Magnesium 1.8 mg/dl (1.7-2.4); Potassium 3.5 mmol/L (3.5-5.1)
[2023-06-02 07:24] LABS: Hematocrit (blood only) 27.2 % (37.0-47.0); Hemoglobin 8.8 g/dl (12.0-16.0); Mean Corpuscular Hemoglobin 24.2 pg (25.0-34.0); Mean Corpuscular Hgb Conc 32.4 g/dL (32.0-36.0); Mean Corpuscular Volume 74.7 fL (80.0-100.0); Mean Platelet Volume 9.7 fL (9.4-12.4); Platelet Count 349 K/uL (130-400); RDW Coefficient of Variation 26.6 % (11.5-14.5); RDW Standard Deviation 69.1 fL (36.4-46.3); Red Blood Count 3.64 M/uL (4.20-5.40); White Blood Count 6.23 K/ul (4.8-10.8)
[2023-06-02 07:33] LABS: BUN Creatinine Ratio 21.4 (10-20); Calcium 8.5 mg/dl (8.6-10.3); Creatinine Clr Calc Pharmacy 80.4 ml/min; Est GFR (African American) 109.9 ml/min; Est GFR (Non-African American) 94.8 ml/min; Magnesium 1.8 mg/dl (1.7-2.4); Phosphorus 3.8 mg/dl (2.5-4.9); Potassium 3.5 mmol/L (3.5-5.1)
[2023-06-02] MEDS: LISINOPRIL/HCTZ 20/12.5MG 1 TAB TAB PO SCH (08:03)
--- NOTE | 2023-06-02 13:08 | Surgery Progress Note ---
Date of Service June 02, 2023 Assessment & Plan (1) Cecum cancer: Plan: patient here s/p R hemicolectomy for cecal mass. yesterday Abdominal Wound had two sutures removed and noted slough material removed at bedside Nursing to continue wound care and dressing changes Hospitalist consulted for HTN concerns Pt seen/examined w/ Dr. Us Admission and Anticipated Discharge Date Admission Date: May 06, 2023 Subjective Patient feeling okay Reports some R sided abdominal discomfort same as yesterday passing gas and having BMs Review of Systems Constitutional: no fever and no chills Respiratory: no dyspnea Gastrointestinal: + abdominal pain (right sided discomfort ); no nausea and no vomiting Physical Exam Physical Exam: alert oriented pleasant Constitutional: well developed, cooperative and comfortable; no acute distress Respiratory: normal respiratory effort and able to speak in complete sentences; no respiratory distress Cardiovascular: Rate/Rhythm: regular rate Gastrointestinal (Abdomen): Inspection/Auscultation: + abdominal surgical incision and + abdominal surgical drain present Results & Data Vital Signs (Past 12 Hours) Vital Signs Temp Pulse Resp BP Pulse Ox O2 Del Method 06/02/23 09:14 66 152/77 H 06/02/23 07:48 Room Air 06/02/23 07:12 97.7 F 63 18 173/84 H 94 Room Air PG Care Time/CCT Total # of Minutes Spent Total Time Spent with Patient: Total time spent is greater than 50% in coordination of care (as documented) at patient's floor/unit and/or counseling patient: Coding Level of Care Code 64480 Post Operative Follow-Up Diagnoses Cecum cancer C18.0
--- NOTE | 2023-06-02 16:05 | Hospitalist Progress Note ---
Date of Service June 02, 2023 Assessment & Plan (1) Cecum cancer: Plan: s/p Right hemicolectomy on 05/05 complicated by anemia s/p 3 units of pRBCs and c/b EC fistula Further management per primary team (2) Post-operative state: (3) Hypertension: Plan: Changed diet to low sodium Scheduled motrin has been discontinued Lisinopril changed to 20 bid along with low dose HCTZ in am. HLZ prn Monitor BP and Repeat labs in am (4) Anemia: Plan: post operative anemia s/p 3 units pRBCs, stable. (5) Renal cyst: Plan: per primary team DVT prophylaxis: per primary team. Patient refused Lovenox but is ambulating Full Code Dispo-per primary team Time spent- 35 mins Admission and Anticipated Discharge Date Admission Date: May 06, 2023 Subjective Patient was seen and examined at bedside. Discussed about high blood pressure. She complained of excess salt in diet and had to return them. Leg swelling is improved. Has some soreness at RLQ but controlled with tylenol. No other issues. Review of Systems Review of Systems: All systems reviewed & are unremarkable except as noted in Subjective Physical Exam Physical Exam: General: Sitting comfortably in chair, not in distress, on room air HEENT: EOMI, CHEY, MMM Chest: Clear breath sounds bilaterally, no wheezes or crackles CVS: Regular rate and rhythm, normal heart sounds, no murmur Abdomen: Soft, abdominal incision site noted, CHEYENNE drain in place, normal bowel sounds Neuro: Awake, alert, oriented, conversing well, non focal Extremities: Mild edema Results & Data Results & Data Vital Signs (Past 12 Hours) Vital Signs Temp Pulse Resp BP BP Pulse Ox O2 Del Method 06/02/23 15:57 36.6 C 62 18 147/78 H 97 Room Air 06/02/23 09:14 66 152/77 H 06/02/23 07:48 Room Air 06/02/23 07:12 36.5 C 63 18 173/84 H 94 Room Air Laboratory Results Short CBC 06/02/23 Range/Units 06:51 WBC 6.23 (4.8-10.8) K/ul Hgb 8.8 L (12.0-16.0) g/dl Hct 27.2 L (37.0-47.0) % Plt Count 349 (130-400) K/uL BMP 04/20/24 04/21/24 22:34 06:51 Sodium 139 139 Potassium 3.5 3.5 Chloride 107 108 H Carbon Dioxide 25 26 BUN 12 9 Creatinine 0.48 L 0.42 L Glucose 105 H 98 Calcium 8.4 L 8.5 L (3) Hypertension Hypertension type: primary hypertension Qualified Code(s): I10 - Essential (primary) hypertension (4) Anemia Anemia type: unspecified type Qualified Code(s): D64.9 - Anemia, unspecified
[2023-06-02] MEDS: lisinopril 20 MG TAB PO SCH (20:23)
[2023-06-02] MEDS: ACETAMINOPHEN 500 MG TAB PO SCH (20:23)
[2023-06-03] MEDS: ACETAMINOPHEN 325 MG TAB PO SCH (07:21)
[2023-06-03 07:58] LABS: BUN Creatinine Ratio 19.5 (10-20); Calcium 8.7 mg/dl (8.6-10.3); Creatinine Clr Calc Pharmacy 82.4 ml/min; Est GFR (African American) 110.7 ml/min; Est GFR (Non-African American) 95.5 ml/min; Magnesium 1.9 mg/dl (1.7-2.4); Potassium 3.5 mmol/L (3.5-5.1)
--- NOTE | 2023-06-03 08:40 | Surgery Progress Note ---
Date of Service June 03, 2023 Assessment & Plan (1) Cecum cancer: Plan: will ask to have wound vac placed appreciate medical consult for HTN slow progress fistula healed Admission and Anticipated Discharge Date Admission Date: May 06, 2023 Subjective still some abdominal discomfort but improving no fistula drainage Review of Systems Constitutional: no fever Cardiovascular: no chest pain Gastrointestinal: + abdominal pain; no nausea, no vomiting and no change in bowel habits Genitourinary: no dysuria Physical Exam Constitutional: + thin Respiratory: normal respiratory effort, lungs clear to auscultation Cardiovascular: RRR, no murmur, no edema Gastrointestinal (Abdomen): Inspection/Auscultation: abdomen normal to inspection, normal bowel sounds and + abdominal surgical incision (open wound with good granulation); abdomen not distended Musculoskeletal: Head/Neck/Chest: normocephalic and head atraumatic Results & Data Vital Signs (Past 12 Hours) Vital Signs Temp Pulse Resp BP Pulse Ox O2 Del Method 06/03/23 07:04 36.6 C 62 16 172/83 H 97 Room Air
[2023-06-03] MEDS: amLODIPine BESYLATE 5 MG TAB PO SCH (08:58)
--- NOTE | 2023-06-03 11:33 | Hospitalist Progress Note ---
Date of Service June 03, 2023 Assessment & Plan (1) Cecum cancer: Plan: s/p Right hemicolectomy on 05/05 complicated by anemia s/p 3 units of pRBCs and c/b EC fistula Further management per primary team. Plan to place wound VAC noted (2) Post-operative state: (3) Hypertension: Plan: BP still elevated despite escalation of antihypertensive. Continue low-sodium diet and avoid all NSAIDs. Continue lisinopril 20 twice daily along with hydrochlorothiazide. Will add amlodipine 5 Mg daily. Monitor BP. (4) Anemia: Plan: post operative anemia s/p 3 units pRBCs, stable. (5) Renal cyst: Plan: per primary team DVT prophylaxis: per primary team. Refusing Lovenox but ambulating Dispo-per primary team Time spent- 35 mins Admission and Anticipated Discharge Date Admission Date: May 06, 2023 Subjective Patient was seen and examined at bedside. Patient is perplexed that her abdominal wound was left open this morning. Wound care to evaluate and place a wound VAC per surgical team. Her leg swelling is resolved. States 1 g Tylenol is too much for her and she is okay with 650 mg of Tylenol. No fever, chills, chest pain or shortness of breath, nausea or vomiting Review of Systems Review of Systems: All systems reviewed & are unremarkable except as noted in Subjective Physical Exam Physical Exam: General: Sitting comfortably in chair, not in distress, on room air HEENT: EOMI, CHEY, MMM Chest: Clear breath sounds bilaterally, no wheezes or crackles CVS: Regular rate and rhythm, normal heart sounds, no murmur Abdomen: Soft, abdominal wound noted normal bowel sounds Neuro: Awake, alert, oriented, conversing well, non focal Extremities: No edema Results & Data Results & Data Vital Signs (Past 12 Hours) Vital Signs Temp Pulse Resp BP BP Pulse Ox O2 Del Method 06/03/23 11:15 147/72 H 06/03/23 08:50 156/62 H 06/03/23 07:04 36.6 C 62 16 172/83 H 97 Room Air Laboratory Results [facility] 06/03/23 07:13 Sodium 140 Potassium 3.5 Chloride 108 H Carbon Dioxide 27 BUN 8 Creatinine 0.41 L Glucose 103 H Calcium 8.7 (3) Hypertension Hypertension type: primary hypertension Qualified Code(s): I10 - Essential (primary) hypertension (4) Anemia Anemia type: unspecified type Qualified Code(s): D64.9 - Anemia, unspecified
[2023-06-03] MEDS: POTASSIUM CHLORIDE 10 MEQ TABCR PO SCH (13:16)
[2023-06-04] MEDS: ACETAMINOPHEN 325 MG TAB PO STA (03:50)
[2023-06-04] MEDS: amLODIPine BESYLATE 5 MG TAB PO SCH (08:57)
--- NOTE | 2023-06-04 09:37 | Surgery Progress Note ---
Date of Service June 04, 2023 Assessment & Plan (1) Cecum cancer: Plan: fistula resolved wound vac ambulate malnutrition improving still with strength issues (2) Hypertension: Plan: appreciate medical care Admission and Anticipated Discharge Date Admission Date: May 06, 2023 Subjective still with some abdominal discomfort but improving wound vac in place HTN still issue but better, appreciate medical team Review of Systems Constitutional: no fever and no chills Respiratory: no cough and no dyspnea Cardiovascular: no chest pain Gastrointestinal: + abdominal pain; no nausea, no vomiting and no change in bowel habits Genitourinary: no dysuria Neurologic: + generalized weakness; no localized wea kness Psychiatric: no behavioral changes Physical Exam Constitutional: + thin Respiratory: normal respiratory effort, lungs clear to auscultation Cardiovascular: RRR, no murmur, no edema Gastrointestinal (Abdomen): Inspection/Auscultation: abdomen normal to inspection, normal bowel sounds and + abdominal surgical incision (wound vac in place); abdomen not distended Percussion/Palpation: + abdomen tender and abdomen soft; no guarding and abdomen not rigid Musculoskeletal: Head/Neck/Chest: normocephalic and head atraumatic Results & Data Vital Signs (Past 12 Hours) Vital Signs Temp Pulse Resp BP Pulse Ox O2 Del Method 06/04/23 07:40 36.7 C 67 16 170/79 H 96 Room Air (2) Hypertension Hypertension type: primary hypertension Qualified Code(s): I10 - Essential (primary) hypertension
[2023-06-04] MEDS ORDERED: hydrALAZINE HCL 20 MG/ML VIAL IV PRN (10:10)
--- NOTE | 2023-06-04 12:52 | Hospitalist Progress Note ---
Date of Service June 04, 2023 Assessment & Plan (1) Cecum cancer: Plan: s/p Right hemicolectomy on 05/05 complicated by anemia s/p 3 units of pRBCs and c/b EC fistula Further management per primary team. Now on wound VAC (2) Post-operative state: (3) Hypertension: Plan: BP still elevated despite escalation of antihypertensive. Continue low-sodium diet and avoid all NSAIDs. Continue lisinopril 20 twice daily along with hydrochlorothiazide. Amlodipine increased to 10 mg daily along with HLZ prn. Monitor BP. Adjust as indicated (4) Anemia: Plan: post operative anemia s/p 3 units pRBCs, stable. (5) Renal cyst: Plan: per primary team DVT prophylaxis: per primary team. Refusing Lovenox but ambulating Dispo-per primary team Time spent- 35 mins Admission and Anticipated Discharge Date Admission Date: May 06, 2023 Subjective Patient was seen and examined at bedside. She feels fine. Tylenol help with the pain. Normal oral intake. Regular BM. Leg swelling resolved. Now on wound vac. Review of Systems Review of Systems: All systems reviewed & are unremarkable except as noted in Subjective Physical Exam Physical Exam: General: Sitting comfortably in bed, not in distress, on room air HEENT: EOMI, CHEY, MMM Chest: Clear breath sounds bilaterally, no wheezes or crackles CVS: Regular rate and rhythm, normal heart sounds, no murmur Abdomen: Soft, abdominal wound noted normal bowel sounds Neuro: Awake, alert, oriented, conversing well, non focal Extremities: No edema Results & Data Results & Data Vital Signs (Past 12 Hours) Vital Signs Temp Pulse Resp BP Pulse Ox O2 Del Method 06/04/23 09:35 Room Air 06/04/23 07:40 36.7 C 67 16 170/79 H 96 Room Air (3) Hypertension Hypertension type: primary hypertension Qualified Code(s): I10 - Essential (primary) hypertension (4) Anemia Anemia type: unspecified type Qualified Code(s): D64.9 - Anemia, unspecified
[2023-06-05] MEDS: ACETAMINOPHEN 325 MG TAB PO SCH (02:45)
[2023-06-05 08:26] LABS: BUN Creatinine Ratio 22.9 (10-20); Calcium 8.9 mg/dl (8.6-10.3); Creatinine Clr Calc Pharmacy 70.4 ml/min; Est GFR (African American) 105.1 ml/min; Est GFR (Non-African American) 90.7 ml/min; Magnesium 1.9 mg/dl (1.7-2.4); Potassium 3.8 mmol/L (3.5-5.1)
[2023-06-05 08:48] LABS: Hematocrit (blood only) 30.3 % (37.0-47.0); Hemoglobin 9.6 g/dl (12.0-16.0); Mean Corpuscular Hgb Conc 31.7 g/dL (32.0-36.0); Mean Corpuscular Volume 75.8 fL (80.0-100.0); Mean Platelet Volume 9.2 fL (9.4-12.4); Platelet Count 383 K/uL (130-400); RDW Coefficient of Variation 26.5 % (11.5-14.5); RDW Standard Deviation 70.3 fL (36.4-46.3); White Blood Count 8.45 K/ul (4.8-10.8)
--- NOTE | 2023-06-05 09:04 | Surgery Progress Note ---
Date of Service June 05, 2023 Assessment & Plan (1) Cecum cancer: Plan: fistula healed slow progesss PT encourage po with severe malnutrition and preop weight loss Admission and Anticipated Discharge Date Admission Date: May 06, 2023 Subjective afebrile pain improving wound vac in place ambulated better yesterday eating OK Review of Systems Constitutional: no fever and no chills Respiratory: no cough and no dyspnea Cardiovascular: no chest pain Gastrointestinal: + abdominal pain; no nausea, no vomiting and no change in bowel habits Genitourinary: no dysuria Physical Exam Constitutional: + thin Respiratory: normal respiratory effort, lungs clear to auscultation Cardiovascular: RRR, no murmur, no edema Gastrointestinal (Abdomen): Inspection/Auscultation: normal bowel sounds and + abdominal surgical incision (wound vac removed with good granulation; no fistula drainage); abdomen not distended Percussion/Palpation: + abdomen tender and abdomen soft; no guarding and abdomen not rigid Musculoskeletal: Head/Neck/Chest: normocephalic and head atraumatic Results & Data Vital Signs (Past 12 Hours) Vital Signs Temp Pulse Resp BP Pulse Ox O2 Del Method 06/05/23 07:40 36.7 C 61 20 161/70 H 96 Room Air 06/05/23 07:23 Room Air
--- NOTE | 2023-06-05 10:50 | Hospitalist Progress Note ---
Date of Service June 05, 2023 Assessment & Plan (1) Cecum cancer: (2) Post-operative state: (3) Hypertension: (4) Anemia: (5) Renal cyst: Plan is an 83 year old woman who is s/p elective open right colon resection at [facility] on 05/06/23 for an ill-defined masslike enlargement of the cecum and terminal ileum concerning for colonic carcinoma with metastatic disease to regional lymph nodes. 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 She was transfused 3 units of pRBCs for post operative anemia. Intravenous toradol and tylenol were used for pain control. A diet of clears was started on 05/07. On 05/09 purulent drainage was noted from her drain and she had some nausea and mild distension of her abdomen. she went back to ice chips/sips and IV Zosyn was started. Perioperative clindamycin was administered (05/05-05/08). Over the next few days her diet was advanced again and her abx were continued through 05/19. 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 A repeat CT a/p was performed. The fistula output was low and her low fiber diet was continued. Patient's course notable for hypertension, which is improving with reduction of NSAIDS and titration of antihypertensives. 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 Now on wound VAC with healing fistula Wound care following #Post-operative Hypertension *improving Continue low-sodium diet and avoid all NSAIDs. Continue lisinopril 20 twice daily along with hydrochlorothiazide. Amlodipine increased to 10 mg daily Monitor BP. Adjust as indicated #Severe protein calorie malnutrition iso malignancy, 67 kilos in 01/2023, now 50kilos 19 BMI Nutritional supplements added #Renal Cyst per primary team DVT prophylaxis: per primary team. Refusing Lovenox but ambulating Dispo-per primary team Time spent- 35 mins Admission and Anticipated Discharge Date Admission Date: May 06, 2023 Subjective Patient evaluated at bedside Denies any acute concerns, eating breakfast--endorses strong appetite No nausea, vomiting BP in 140s after am meds Physical Exam Constitutional: WD/WN, vitals as above Respiratory: normal respiratory effort, lungs clear to auscultation Cardiovascular: RRR, no murmur, no edema Results & Data Results & Data Vital Signs (Past 12 Hours) Vital Signs Temp Pulse Resp BP Pulse Ox O2 Del Method 06/05/23 07:40 36.7 C 61 20 161/70 H 96 Room Air 06/05/23 07:23 Room Air Laboratory Results Short CBC 06/05/23 Range/Units 07:47 WBC 8.45 (4.8-10.8) K/ul Hgb 9.6 L (12.0-16.0) g/dl Hct 30.3 L (37.0-47.0) % Plt Count 383 (130-400) K/uL BMP 06/05/23 07:47 Sodium 140 Potassium 3.8 Chloride 107 Carbon Dioxide 25 BUN 11 Creatinine 0.48 L Glucose 108 H Calcium 8.9 Medications Administered Home Medications Medication Instructions Recorded Confirmed Last Taken lisinopril 20 mg tablet 20 mg PO QAM 04/30/20 05/06/23 04/30/20 tramadol 50 mg tablet 50 mg PO BID PRN pain #11 tabs 04/05/23 05/06/23 Unknown acetaminophen 500 mg tablet 500 mg PO Q6H PRN Pain 05/06/23 05/06/23 Unknown Active Medications Generic Name Dose Route Start Last Admin Trade Name Robertq PRN Reason Stop Dose Admin Acetaminophen 650 mg 06/05/23 02:30 06/05/23 02:45 Acetaminophen 325 Mg Tab PO 07/05/23 02:29 650 mg QID AMALIA Administration Amlodipine Besylate 10 mg 06/04/23 09:00 06/05/23 08:50 Amlodipine Besylate 5 Mg Tab PO 07/04/23 08:59 10 mg QAM AMALIA Administration Enoxaparin Sodium 40 mg 05/06/23 17:00 06/04/23 19:51 Enoxaparin Inj 40 Mg/0.4 Ml Syr SQ 06/05/23 16:59 Not Given Q24H AMALIA Lisinopril/HCTZ 1 tab 06/02/23 09:00 06/05/23 08:51 Lisinopril/Hctz 20/12.5mg 1 Tab Tab PO 07/02/23 08:59 1 tab QAM AMALIA Administration Promethazine HCl 12.5 mg/ 50.5 mls @ 202 mls/hr 05/10/23 11:03 05/10/23 12:01 Sodium Chloride IV 06/09/23 11:02 Infused Q6H PRN Infusion Nausea And Vomiting Ibuprofen 600 mg 05/08/23 15:30 06/01/23 08:06 Ibuprofen 600 Mg Tab PO 06/07/23 15:29 600 mg Q8H AMALIA Administration Lisinopril 20 mg 06/02/23 21:00 06/04/23 19:51 Lisinopril 20 Mg Tab PO 07/02/23 20:59 20 mg HS AMALIA Administration Ondansetron HCl 4 mg 05/06/23 16:44 05/12/23 18:04 Ondansetron Inj 2 Mg/Ml 2 Ml Vial IV 06/05/23 16:43 4 mg Q6H PRN Administration Nausea Pantoprazole Sodium 40 mg 05/15/23 21:00 06/05/23 08:51 Pantoprazole 40 Mg Tab PO 06/14/23 20:59 40 mg BID AMALIA Administration Protocol Potassium Chloride 10 meq 06/03/23 11:45 06/05/23 08:51 Potassium Chloride 10 Meq Tabcr PO 07/03/23 11:44 10 meq DAILY AMALIA Administration (3) Hypertension Hypertension type: primary hypertension Qualified Code(s): I10 - Essential (primary) hypertension (4) Anemia Anemia type: unspecified type Qualified Code(s): D64.9 - Anemia, unspecified
[2023-06-05] MEDS: traMADol HCL 50 MG TABLET PO PRN (15:26)
--- NOTE | 2023-06-06 07:19 | Hospitalist Progress Note ---
Date of Service June 06, 2023 Assessment & Plan (1) Cecum cancer: (2) Post-operative state: (3) Hypertension: (4) Anemia: (5) Renal cyst: Plan is an 83 year old woman who is s/p elective open right colon resection at [facility] on 05/06/23 for an ill-defined masslike enlargement of the cecum and terminal ileum concerning for colonic carcinoma with metastatic disease to regional lymph nodes. 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 She was transfused 3 units of pRBCs for post operative anemia. Intravenous toradol and tylenol were used for pain control. A diet of clears was started on 05/07. On 05/09 purulent drainage was noted from her drain and she had some nausea and mild distension of her abdomen. she went back to ice chips/sips and IV Zosyn was started. Perioperative clindamycin was administered (05/05-05/08). Over the next few days her diet was advanced again and her abx were continued through 05/19. 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 A repeat CT a/p was performed. The fistula output was low and her low fiber diet was continued. Patient's course notable for hypertension, which is improving with reduction of NSAIDS and titration of antihypertensives. 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 Now on wound VAC with healing fistula Wound care following #Post-operative Hypertension *improving Continue low-sodium diet and avoid all NSAIDs. Given risk of electrolyte abnormalities, discontinue HCTZ formulation and K supplement to also limit pill burden Increase lisinopril to 20mg bid Amlodipine increased to 10 mg daily Monitor BP. Adjust as indicated #Severe protein calorie malnutrition iso malignancy, 67 kilos in 01/2023, now 50kilos 19 BMI Nutritional supplements added #Renal Cyst per primary team DVT prophylaxis: per primary team. Refusing Lovenox but ambulating Dispo-per primary team Time spent- 35 mins Admission and Anticipated Discharge Date Admission Date: May 06, 2023 Subjective NO acute events overnight, blood pressures more stable and appropriate consistently throughout the day Patient feels well and is attempting to adjust to the wound vac, but otherwise no acute concerns Physical Exam Constitutional: WD/WN, vitals as above Respiratory: normal respiratory effort, lungs clear to auscultation Cardiovascular: RRR, no murmur, no edema Gastrointestinal (Abdomen): wound vac in place, sponge filling area of fistulization, no surrounding erythema or stigmata of infection Results & Data Results & Data Vital Signs (Past 12 Hours) Vital Signs Temp Pulse Resp BP Pulse Ox O2 Del Method 06/06/23 07:08 36.6 C 66 18 143/77 H 95 Room Air 06/05/23 21:45 Room Air 06/05/23 19:51 Room Air 06/05/23 19:36 36.9 C 68 18 129/76 96 Room Air Laboratory Results Short CBC 06/05/23 Range/Units 07:47 WBC 8.45 (4.8-10.8) K/ul Hgb 9.6 L (12.0-16.0) g/dl Hct 30.3 L (37.0-47.0) % Plt Count 383 (130-400) K/uL BMP 06/05/23 07:47 Sodium 140 Potassium 3.8 Chloride 107 Carbon Dioxide 25 BUN 11 Creatinine 0.48 L Glucose 108 H Calcium 8.9 Medications Administered Home Medications Medication Instructions Recorded Confirmed Last Taken lisinopril 20 mg tablet 20 mg PO QAM 04/30/20 05/06/23 04/30/20 tramadol 50 mg tablet 50 mg PO BID PRN pain #11 tabs 04/05/23 05/06/23 Unknown acetaminophen 500 mg tablet 500 mg PO Q6H PRN Pain 05/06/23 05/06/23 Unknown Active Medications Generic Name Dose Route Start Last Admin Trade Name Robertq PRN Reason Stop Dose Admin Acetaminophen 650 mg 06/05/23 02:30 06/05/23 19:50 Acetaminophen 325 Mg Tab PO 07/05/23 02:29 650 mg QID AMALIA Administration Amlodipine Besylate 10 mg 06/04/23 09:00 06/05/23 08:50 Amlodipine Besylate 5 Mg Tab PO 07/04/23 08:59 10 mg QAM AMALIA Administration Lisinopril/HCTZ 1 tab 06/02/23 09:00 06/05/23 08:51 Lisinopril/Hctz 20/12.5mg 1 Tab Tab PO 07/02/23 08:59 1 tab QAM AMALIA Administration Promethazine HCl 12.5 mg/ 50.5 mls @ 202 mls/hr 05/10/23 11:03 05/10/23 12:01 Sodium Chloride IV 06/09/23 11:02 Infused Q6H PRN Infusion Nausea And Vomiting Ibuprofen 600 mg 05/08/23 15:30 06/01/23 08:06 Ibuprofen 600 Mg Tab PO 06/07/23 15:29 600 mg Q8H AMALIA Administration Lisinopril 20 mg 06/02/23 21:00 06/05/23 19:51 Lisinopril 20 Mg Tab PO 07/02/23 20:59 20 mg HS AMALIA Administration Pantoprazole Sodium 40 mg 05/15/23 21:00 06/05/23 19:51 Pantoprazole 40 Mg Tab PO 06/14/23 20:59 40 mg BID AMALIA Administration Protocol Potassium Chloride 10 meq 06/03/23 11:45 06/05/23 08:51 Potassium Chloride 10 Meq Tabcr PO 07/03/23 11:44 10 meq DAILY AMALIA Administration Tramadol HCl 50 mg 06/01/23 11:04 06/05/23 15:26 Tramadol Hcl 50 Mg Tablet PO 06/09/23 11:02 50 mg Q4H PRN Administration pain (4+) (3) Hypertension Hypertension type: primary hypertension Qualified Code(s): I10 - Essential (primary) hypertension (4) Anemia Anemia type: unspecified type Qualified Code(s): D64.9 - Anemia, unspecified
[2023-06-06 07:23] LABS: Hematocrit (blood only) 29.8 % (37.0-47.0); Hemoglobin 9.7 g/dl (12.0-16.0); Mean Corpuscular Hemoglobin 24.1 pg (25.0-34.0); Mean Corpuscular Hgb Conc 32.6 g/dL (32.0-36.0); Mean Corpuscular Volume 73.9 fL (80.0-100.0); Mean Platelet Volume 9.3 fL (9.4-12.4); Platelet Count 390 K/uL (130-400); RDW Coefficient of Variation 26.8 % (11.5-14.5); RDW Standard Deviation 69.8 fL (36.4-46.3); Red Blood Count 4.03 M/uL (4.20-5.40)
[2023-06-06 08:01] LABS: Folate (Folic Acid),Ser orPlas 13.86 ng/ml (>5.38)
[2023-06-06 08:07] LABS: Ferritin 26.9 ng/ml (8-388)
[2023-06-06] MEDS: lisinopril 20 MG TAB PO SCH (08:34)
--- NOTE | 2023-06-06 12:19 | Surgery Progress Note ---
Date of Service June 06, 2023 Assessment & Plan (1) Cecum cancer: Plan: wound vac in place fistula healed slow progress Admission and Anticipated Discharge Date Admission Date: May 06, 2023 Subjective making progress eating better Review of Systems Constitutional: no fever and no chills Respiratory: no cough and no dyspnea Cardiovascular: no chest pain Gastrointestinal: + abdominal pain; no nausea and no vomit ing Genitourinary: no dysuria Physical Exam Constitutional: + thin Gastrointestinal (Abdomen): Inspection/Auscultation: abdomen normal to inspection and normal bowel sounds; abdomen not distended Percussion/Palpation: + abdomen tender and abdomen soft; no guarding and abdomen not rigid Results & Data Vital Signs (Past 12 Hours) Vital Signs Temp Pulse Resp BP Pulse Ox O2 Del Method 06/06/23 07:46 Room Air 06/06/23 07:08 36.6 C 66 18 143/77 H 95 Room Air
--- NOTE | 2023-06-07 07:36 | Hospitalist Progress Note ---
Date of Service June 07, 2023 Assessment & Plan (1) Cecum cancer: (2) Post-operative state: (3) Hypertension: (4) Anemia: (5) Renal cyst: Plan is an 83 year old woman who is s/p elective open right colon resection at [facility] on 05/06/23 for an ill-defined masslike enlargement of the cecum and terminal ileum concerning for colonic carcinoma with metastatic disease to regional lymph nodes. 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 She was transfused 3 units of pRBCs for post operative anemia. Intravenous toradol and tylenol were used for pain control. A diet of clears was started on 05/07. On 05/09 purulent drainage was noted from her drain and she had some nausea and mild distension of her abdomen. she went back to ice chips/sips and IV Zosyn was started. Perioperative clindamycin was administered (05/05-05/08). Over the next few days her diet was advanced again and her abx were continued through 05/19. 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 A repeat CT a/p was performed. The fistula output was low and her low fiber diet was continued. Patient's course notable for hypertension, which is improving with reduction of NSAIDS and titration of antihypertensives. Patient's blood pressures have improved and stabilized with Lisinopril 20mg BID and amlodipine. Patient is medically stable for discharge. 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 Now on wound VAC with healing fistula Wound care following Dispo per primary #Post-operative Hypertension *improving Continue low-sodium diet and avoid all NSAIDs. Given risk of electrolyte abnormalities, discontinue HCTZ formulation and K supplement to also limit pill burden Continue lisinopril to 20mg bid Amlodipine increased to 10 mg daily Stable on above regimen, no further changes #Severe protein calorie malnutrition iso malignancy, 67 kilos in 01/2023, now 50kilos 19 BMI Nutritional supplements added #Renal Cyst per primary team DVT prophylaxis: per primary team. Refusing Lovenox but ambulating Anticipated dispo next week per surgery Dispo-per primary team Time spent- 35 mins Admission and Anticipated Discharge Date Admission Date: May 06, 2023 Subjective NAEO Physical Exam Constitutional: WD/WN, vitals as above Respiratory: normal respiratory effort, lungs clear to auscultation Cardiovascular: RRR, no murmur, no edema Results & Data Results & Data Vital Signs (Past 12 Hours) Vital Signs Temp Pulse Resp BP Pulse Ox O2 Del Method 06/06/23 20:05 36.5 C 72 18 122/71 95 Room Air Medications Administered Home Medications Medication Instructions Recorded Confirmed Last Taken lisinopril 20 mg tablet 20 mg PO QAM 04/30/20 05/06/23 04/30/20 tramadol 50 mg tablet 50 mg PO BID PRN pain #11 tabs 04/05/23 05/06/23 Unknown acetaminophen 500 mg tablet 500 mg PO Q6H PRN Pain 05/06/23 05/06/23 Unknown amlodipine 10 mg tablet 10 mg PO DAILY #30 tabs 06/06/23 Unknown pantoprazole 40 mg tablet,delayed 40 mg PO BID #60 tabs 06/06/23 Unknown release Active Medications Generic Name Dose Route Start Last Admin Trade Name Freq PRN Reason Stop Dose Admin Acetaminophen 650 mg 06/05/23 02:30 06/07/23 08:32 Acetaminophen 325 Mg Tab PO 07/05/23 02:29 650 mg QID AMALIA Administration Amlodipine Besylate 10 mg 06/04/23 09:00 06/07/23 08:33 Amlodipine Besylate 5 Mg Tab PO 07/04/23 08:59 10 mg QAM AMALIA Administration Lisinopril/HCTZ 1 tab 06/02/23 09:00 06/05/23 08:51 Lisinopril/Hctz 20/12.5mg 1 Tab Tab PO 07/02/23 08:59 1 tab QAM AMALIA Administration Promethazine HCl 12.5 mg/ 50.5 mls @ 202 mls/hr 05/10/23 11:03 05/10/23 12:01 Sodium Chloride IV 06/09/23 11:02 Infused Q6H PRN Infusion Nausea And Vomiting Ibuprofen 600 mg 05/08/23 15:30 06/01/23 08:06 Ibuprofen 600 Mg Tab PO 06/07/23 15:29 600 mg Q8H AMALIA Administration Lisinopril 20 mg 06/06/23 09:00 06/07/23 08:32 Lisinopril 20 Mg Tab PO 07/06/23 08:59 20 mg BID AMALIA Administration Pantoprazole Sodium 40 mg 05/15/23 21:00 06/07/23 08:33 Pantoprazole 40 Mg Tab PO 06/14/23 20:59 40 mg BID AMALIA Administration Protocol Potassium Chloride 10 meq 06/03/23 11:45 06/07/23 08:33 Potassium Chloride 10 Meq Tabcr PO 07/03/23 11:44 10 meq DAILY AMALIA Administration Tramadol HCl 50 mg 06/01/23 11:04 06/05/23 15:26 Tramadol Hcl 50 Mg Tablet PO 06/09/23 11:02 50 mg Q4H PRN Administration pain (4+) (3) Hypertension Hypertension type: primary hypertension Qualified Code(s): I10 - Essential (primary) hypertension (4) Anemia Anemia type: unspecified type Qualified Code(s): D64.9 - Anemia, unspecified
--- NOTE | 2023-06-07 09:16 | Surgery Progress Note ---
Date of Service June 07, 2023 Assessment & Plan (1) Cecum cancer: (2) Hypertension: Plan: currently controlled appreciate medical management Plan POD # [address], wound healing well fistula healed slow progress Plan: Will need to determine discharge planning once stable from medical standpoint (following due to HTN). Black foam placed today by Cyndie wound care nurse instead of silver foam. Case management following, home health is set up. Continue ambulating continue pain management as needed BOOST supplementation Discussed with Dr. Khoury who will evaluate patient later today. Admission and Anticipated Discharge Date Admission Date: May 06, 2023 Subjective feeling okay tolerating diet at times, sometimes food just doesn't taste good. no n,v + bowel movements abdominal pain controlled no fevers or chills ambulating hallway Physical Exam Constitutional: WD/WN, vitals as above + thin, cooperative and comfortable; no acute distress and not ill appearing Respiratory: normal respiratory effort; no respiratory distress and no labored breathing Gastrointestinal (Abdomen): Inspection/Auscultation: abdomen normal to inspection, + abdominal surgical incision (superior aspect of incision c/d/i with bailee), + abdominal surgical drain present and + Lema-Lafleur sign present (minimal serous); abdomen not distended Percussion/Palpation: + abdomen tender (at midline incision) and abdomen soft; no guarding, abdomen not rigid and abdomen not firm Midline incision inferior aspect: wound vac removed , healthy granulation tissue measuring about 5.2 x 3 cm , significantly improving, 1 cm depth and 1 cm undermining inferiorly. Some slough at wound edges, no necrosis. Skin: no rashes, warm and dry Psychiatric: A+Ox3, euthymic affect Results & Data Vital Signs (Past 12 Hours) Vital Signs Temp Pulse Resp BP Pulse Ox O2 Del Method 06/07/23 07:39 36.8 C 65 14 136/76 96 Room Air 06/07/23 07:36 36.8 C 65 14 136/76 96 Room Air (2) Hypertension Hypertension type: primary hypertension Qualified Code(s): I10 - Essential (primary) hypertension
--- NOTE | 2023-06-08 10:03 | Surgery Progress Note ---
Date of Service June 08, 2023 Assessment & Plan (1) Cecum cancer: (2) Hypertension: Plan: currently controlled appreciate medical management Plan POD # [address], wound healing well fistula healed slow progress Plan: Will need to determine discharge planning once stable from medical standpoint (following due to HTN). Black foam placed today by Cyndie wound care nurse instead of silver foam. Case management following, home health is set up. Continue ambulating continue pain management as needed BOOST supplementation Admission and Anticipated Discharge Date Admission Date: May 06, 2023 Subjective Doing well, no complaints Physical Exam Physical Exam: AFVSS NAD A&Ox3 Abd soft, mild TTP midline wound with wound VAC in place Results & Data Vital Signs (Past 12 Hours) Vital Signs Temp Pulse Resp BP Pulse Ox O2 Del Method 06/08/23 08:06 36.7 C 65 18 124/78 96 Room Air (2) Hypertension Hypertension type: primary hypertension Qualified Code(s): I10 - Essential (primary) hypertension
--- NOTE | 2023-06-08 10:05 | Hospitalist Progress Note ---
Date of Service June 08, 2023 Assessment & Plan (1) Cecum cancer: (2) Post-operative state: (3) Hypertension: (4) Anemia: (5) Renal cyst: Plan is an 83 year old woman who is s/p elective open right colon resection at [facility] on 05/06/23 for an ill-defined masslike enlargement of the cecum and terminal ileum concerning for colonic carcinoma with metastatic disease to regional lymph nodes. 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 She was transfused 3 units of pRBCs for post operative anemia. Intravenous toradol and tylenol were used for pain control. A diet of clears was started on 05/07. On 05/09 purulent drainage was noted from her drain and she had some nausea and mild distension of her abdomen. she went back to ice chips/sips and IV Zosyn was started. Perioperative clindamycin was administered (05/05-05/08). Over the next few days her diet was advanced again and her abx were continued through 05/19. 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 A repeat CT a/p was performed. The fistula output was low and her low fiber diet was continued. Patient's course notable for hypertension, which is improving with reduction of NSAIDS and titration of antihypertensives. Patient's blood pressures have improved and stabilized with Lisinopril 20mg BID and amlodipine. Patient is medically stable for discharge. No changes to plan. 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 Now on wound VAC with healing fistula Wound care following Dispo per primary #Post-operative Hypertension *improving Continue low-sodium diet and avoid all NSAIDs. Given risk of electrolyte abnormalities, discontinue HCTZ formulation and K supplement to also limit pill burden Continue lisinopril to 20mg bid Amlodipine increased to 10 mg daily Stable on above regimen, no further changes #Severe protein calorie malnutrition iso malignancy, 67 kilos in 01/2023, now 50kilos 19 BMI Nutritional supplements added #Renal Cyst per primary team DVT prophylaxis: per primary team. Refusing Lovenox but ambulating Anticipated dispo next week per surgery Dispo-per primary team Time spent- 25 mins Admission and Anticipated Discharge Date Admission Date: May 06, 2023 Subjective NAEO doing well, possibly home early next week Blood pressure well controlled Physical Exam Constitutional: WD/WN, vitals as above Respiratory: normal respiratory effort, lungs clear to auscultation Cardiovascular: RRR, no murmur, no edema Results & Data Results & Data Vital Signs (Past 12 Hours) Vital Signs Temp Pulse Resp BP Pulse Ox O2 Del Method 06/08/23 08:06 36.7 C 65 18 124/78 96 Room Air Medications Administered Home Medications Medication Instructions Recorded Confirmed Last Taken lisinopril 20 mg tablet 20 mg PO QAM 04/30/20 05/06/23 04/30/20 tramadol 50 mg tablet 50 mg PO BID PRN pain #11 tabs 04/05/23 05/06/23 Unknown acetaminophen 500 mg tablet 500 mg PO Q6H PRN Pain 05/06/23 05/06/23 Unknown amlodipine 10 mg tablet 10 mg PO DAILY #30 tabs 06/06/23 Unknown pantoprazole 40 mg tablet,delayed 40 mg PO BID #60 tabs 06/06/23 Unknown release Active Medications Generic Name Dose Route Start Last Admin Trade Name Freq PRN Reason Stop Dose Admin Acetaminophen 650 mg 06/05/23 02:30 06/08/23 09:30 Acetaminophen 325 Mg Tab PO 07/05/23 02:29 650 mg QID AMALIA Administration Amlodipine Besylate 10 mg 06/04/23 09:00 06/08/23 09:30 Amlodipine Besylate 5 Mg Tab PO 07/04/23 08:59 10 mg QAM AMALIA Administration Lisinopril/HCTZ 1 tab 06/02/23 09:00 06/05/23 08:51 Lisinopril/Hctz 20/12.5mg 1 Tab Tab PO 07/02/23 08:59 1 tab QAM AMALIA Administration Promethazine HCl 12.5 mg/ 50.5 mls @ 202 mls/hr 05/10/23 11:03 05/10/23 12:01 Sodium Chloride IV 06/09/23 11:02 Infused Q6H PRN Infusion Nausea And Vomiting Lisinopril 20 mg 06/06/23 09:00 06/08/23 09:30 Lisinopril 20 Mg Tab PO 07/06/23 08:59 20 mg BID AMALIA Administration Pantoprazole Sodium 40 mg 05/15/23 21:00 06/08/23 09:30 Pantoprazole 40 Mg Tab PO 06/14/23 20:59 40 mg BID AMALIA Administration Protocol Potassium Chloride 10 meq 06/03/23 11:45 06/08/23 09:30 Potassium Chloride 10 Meq Tabcr PO 07/03/23 11:44 10 meq DAILY AMALIA Administration Tramadol HCl 50 mg 06/01/23 11:04 06/07/23 21:16 Tramadol Hcl 50 Mg Tablet PO 06/09/23 11:02 50 mg Q4H PRN Administration pain (4+) (3) Hypertension Hypertension type: primary hypertension Qualified Code(s): I10 - Essential (primary) hypertension (4) Anemia Anemia type: unspecified type Qualified Code(s): D64.9 - Anemia, unspecified
--- NOTE | 2023-06-09 09:03 | Surgery Progress Note ---
Date of Service June 09, 2023 Assessment & Plan (1) Cecum cancer: (2) Hypertension: Plan: currently controlled appreciate medical management Plan POD # [address], wound healing well fistula healed slow progress Plan: Will need to determine discharge planning once stable from medical standpoint (following due to HTN). Black foam placed today by Cyndie wound care nurse instead of silver foam. Case management following, home health is set up. Continue ambulating continue pain management as needed BOOST supplementation Admission and Anticipated Discharge Date Admission Date: May 06, 2023 Subjective doing well. no complaints Physical Exam Physical Exam: AFVSS NAD A&Ox3 Abd soft, mild TTP midline wound with wound VAC in place Results & Data Vital Signs (Past 12 Hours) Vital Signs Temp Pulse Resp BP Pulse Ox O2 Del Method 06/09/23 08:05 36.6 C 77 16 121/76 97 Room Air (2) Hypertension Hypertension type: primary hypertension Qualified Code(s): I10 - Essential (primary) hypertension
--- NOTE | 2023-06-09 09:20 | Hospitalist Progress Note ---
Date of Service June 09, 2023 Assessment & Plan (1) Cecum cancer: (2) Post-operative state: (3) Hypertension: (4) Anemia: (5) Renal cyst: Plan is an 83 year old woman who is s/p elective open right colon resection at [facility] on 05/06/23 for an ill-defined masslike enlargement of the cecum and terminal ileum concerning for colonic carcinoma with metastatic disease to regional lymph nodes. 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 She was transfused 3 units of pRBCs for post operative anemia. Intravenous toradol and tylenol were used for pain control. A diet of clears was started on 05/07. On 05/09 purulent drainage was noted from her drain and she had some nausea and mild distension of her abdomen. she went back to ice chips/sips and IV Zosyn was started. Perioperative clindamycin was administered (05/05-05/08). Over the next few days her diet was advanced again and her abx were continued through 05/19. 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 A repeat CT a/p was performed. The fistula output was low and her low fiber diet was continued. Patient's course notable for hypertension, which is improving with reduction of NSAIDS and titration of antihypertensives. Patient's blood pressures stabilized with Lisinopril 20mg BID and amlodipine. Patient is medically stable for discharge. No changes to plan for antihypertensive. Patient with complex social situation. 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 Now on wound VAC with healing fistula Wound care following, wound vac as appropriate Dispo per primary #Post-operative Hypertension *improving Continue low-sodium diet and avoid all NSAIDs. Given risk of electrolyte abnormalities, discontinue HCTZ formulation and K supplement to also limit pill burden Continue lisinopril 20mg bid Continue Amlodipine 10 mg daily Stable on above regimen, no further changes #Severe protein calorie malnutrition iso malignancy, 67 kilos in 01/2023, now 50kilos 19 BMI Nutritional supplements added #Renal Cyst per primary team DVT prophylaxis: per primary team. Refusing Lovenox but ambulating Anticipated dispo next week per surgery Dispo-per primary team Time spent- 25 mins Admission and Anticipated Discharge Date Admission Date: May 06, 2023 Subjective No acute events overnight. Patient remains medically stable. Notified Surgical Staff on of stability from medical standpoint. Patient eating well and tolerating wound vac at this time. Reports complex social situation limiting ability to get home as children worry for her returning home, but patient is adamant to go to her house Physical Exam Constitutional: WD/WN, vitals as above Respiratory: normal respiratory effort, lungs clear to auscultation Cardiovascular: RRR, no murmur, no edema Gastrointestinal (Abdomen): wound vac in place Results & Data Results & Data Vital Signs (Past 12 Hours) Vital Signs Temp Pulse Resp BP Pulse Ox O2 Del Method 06/09/23 08:05 36.6 C 77 16 121/76 97 Room Air Medications Administered Home Medications Medication Instructions Recorded Confirmed Last Taken lisinopril 20 mg tablet 20 mg PO QAM 04/30/20 05/06/23 04/30/20 tramadol 50 mg tablet 50 mg PO BID PRN pain #11 tabs 04/05/23 05/06/23 Unknown acetaminophen 500 mg tablet 500 mg PO Q6H PRN Pain 05/06/23 05/06/23 Unknown amlodipine 10 mg tablet 10 mg PO DAILY #30 tabs 06/06/23 Unknown pantoprazole 40 mg tablet,delayed 40 mg PO BID #60 tabs 06/06/23 Unknown release Active Medications Generic Name Dose Route Start Last Admin Trade Name Freq PRN Reason Stop Dose Admin Acetaminophen 650 mg 06/05/23 02:30 06/09/23 09:02 Acetaminophen 325 Mg Tab PO 07/05/23 02:29 650 mg QID AMALIA Administration Amlodipine Besylate 10 mg 06/04/23 09:00 06/09/23 09:03 Amlodipine Besylate 5 Mg Tab PO 07/04/23 08:59 10 mg QAM AMALIA Administration Lisinopril/HCTZ 1 tab 06/02/23 09:00 06/05/23 08:51 Lisinopril/Hctz 20/12.5mg 1 Tab Tab PO 07/02/23 08:59 1 tab QAM AMALIA Administration Promethazine HCl 12.5 mg/ 50.5 mls @ 202 mls/hr 05/10/23 11:03 05/10/23 12:01 Sodium Chloride IV 06/09/23 11:02 Infused Q6H PRN Infusion Nausea And Vomiting Lisinopril 20 mg 06/06/23 09:00 06/09/23 09:02 Lisinopril 20 Mg Tab PO 07/06/23 08:59 20 mg BID AMALIA Administration Pantoprazole Sodium 40 mg 05/15/23 21:00 06/09/23 09:02 Pantoprazole 40 Mg Tab PO 06/14/23 20:59 40 mg BID AMALIA Administration Protocol Potassium Chloride 10 meq 06/03/23 11:45 06/09/23 09:02 Potassium Chloride 10 Meq Tabcr PO 07/03/23 11:44 10 meq DAILY AMALIA Administration Tramadol HCl 50 mg 06/01/23 11:04 06/07/23 21:16 Tramadol Hcl 50 Mg Tablet PO 06/09/23 11:02 50 mg Q4H PRN Administration pain (4+) (3) Hypertension Hypertension type: primary hypertension Qualified Code(s): I10 - Essential (primary) hypertension (4) Anemia Anemia type: unspecified type Qualified Code(s): D64.9 - Anemia, unspecified
--- NOTE | 2023-06-10 09:43 | Surgery Progress Note ---
Date of Service June 10, 2023 Assessment & Plan (1) Cecum cancer: Plan: continue wound vac; fistula resolved diet to regular PT possible placement this week if continues to improve Present on Admission?: Yes Admission and Anticipated Discharge Date Admission Date: May 06, 2023 Subjective still with abdominal pain likely from open wound eating OK; put back on regular diet ambulate with PT Review of Systems Constitutional: no fever and no chills Respiratory: no cough and no dyspnea Cardiovascular: no chest pain Gastrointestinal: + abdominal pain; no nausea, no vomiting and no change in bowel habits Genitourinary: no dysuria Physical Exam Constitutional: + thin Respiratory: normal respiratory effort, lungs clear to auscultation Cardiovascular: RRR, no murmur, no edema Gastrointestinal (Abdomen): Inspection/Auscultation: abdomen normal to inspection and normal bowel sounds; abdomen not distended Percussion/Palpation: + abdomen tender and abdomen soft; no guarding and abdomen not rigid Skin: no rashes, warm and dry Results & Data Vital Signs (Past 12 Hours) Vital Signs Temp Pulse Resp BP Pulse Ox O2 Del Method 06/10/23 07:14 36.8 C 66 16 117/63 97 Room Air
--- NOTE | 2023-06-10 18:39 | Hospitalist Progress Note ---
Date of Service June 10, 2023 Assessment & Plan (1) Cecum cancer: (2) Post-operative state: (3) Hypertension: (4) Anemia: (5) Renal cyst: Plan is an 83 year old woman who is s/p elective open right colon resection at [facility] on 05/06/23 for an ill-defined masslike enlargement of the cecum and terminal ileum concerning for colonic carcinoma with metastatic disease to regional lymph nodes. 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 She was transfused 3 units of pRBCs for post operative anemia. Intravenous toradol and tylenol were used for pain control. A diet of clears was started on 05/07. On 05/09 purulent drainage was noted from her drain and she had some nausea and mild distension of her abdomen. she went back to ice chips/sips and IV Zosyn was started. Perioperative clindamycin was administered (05/05-05/08). Over the next few days her diet was advanced again and her abx were continued through 05/19. 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 A repeat CT a/p was performed. The fistula output was low and her low fiber diet was continued. Patient's course notable for hypertension, which is improving with reduction of NSAIDS and titration of antihypertensives. 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 Refusing Lovenox but ambulating Admission and Anticipated Discharge Date Admission Date: May 06, 2023 Subjective Patient is seen and examined at bedside States having some abdominal discomfort Tolerating current diet Denies any chest pain, nausea, vomiting, dizziness No other complaints Review of Systems Review of Systems: All systems reviewed & are unremarkable except as noted in Subjective Physical Exam Physical Exam: Physical Exam: Vitals signs as noted above General Appearance:Moderately built and nourished, no apparent distress Head: normocephalic, Atraumatic Eyes: normal inspection, EOMI Neck: supple, Trachea midline Respiratory/Chest: Normal breath sounds, CTA, No accessory muscle use Cardiovascular: S1, S2, No murmur Abdomen/GI:Soft, Non tender, Bowel sounds present, +Wound Vac Extremities/Musculoskeletal:normal inspection, no edema Neurologic/Psych:AAOX3, grossly no focal neurological deficits Skin: normal color, warm Results & Data Results & Data Vital Signs (Past 12 Hours) Vital Signs Temp Pulse Resp BP Pulse Ox O2 Del Method 06/10/23 15:22 36.6 C 70 16 102/63 98 Room Air 06/10/23 07:50 Room Air 06/10/23 07:14 36.8 C 66 16 117/63 97 Room Air (3) Hypertension Hypertension type: primary hypertension Qualified Code(s): I10 - Essential (primary) hypertension (4) Anemia Anemia type: unspecified type Qualified Code(s): D64.9 - Anemia, unspecified
[2023-06-10] MEDS: ACETAMINOPHEN 325 MG TAB PO PRN (22:40)
[2023-06-11 07:27] LABS: BUN Creatinine Ratio 41.5 (10-20); Calcium 8.7 mg/dl (8.6-10.3); Creatinine Clr Calc Pharmacy 82.4 ml/min; Est GFR (African American) 110.7 ml/min; Est GFR (Non-African American) 95.5 ml/min; Potassium 4.3 mmol/L (3.5-5.1)
[2023-06-11] MEDS: lisinopril 20 MG TAB PO SCH (08:13)
[2023-06-11] MEDS: amLODIPine BESYLATE 5 MG TAB PO SCH (08:14)
--- NOTE | 2023-06-11 12:02 | Surgery Progress Note ---
Date of Service June 11, 2023 Assessment & Plan (1) Cecum cancer: Plan: slow progress fistula healed PT placement soon Admission and Anticipated Discharge Date Admission Date: May 06, 2023 Subjective pain improving wound vac in place a little progress with PT Review of Systems Constitutional: no fever and no chills Respiratory: no cough and no dyspnea Cardiovascular: no chest pain Gastrointestinal: + abdominal pain; no nausea, no vomiting and no change in bowel habits Genitourinary: no dysuria Physical Exam Respiratory: normal respiratory effort, lungs clear to auscultation Cardiovascular: RRR, no murmur, no edema Gastrointestinal (Abdomen): Inspection/Auscultation: abdomen normal to inspection and normal bowel sounds; abdomen not distended Percus samreen/Palpation: + abdomen tender and abdomen soft; no guarding and abdomen not rigid wound vac in place Musculoskeletal: Head/Neck/Chest: normocephalic and head atraumatic Skin: no rashes, warm and dry Results & Data Vital Signs (Past 12 Hours) Vital Signs Temp Pulse Resp BP Pulse Ox O2 Del Method 06/11/23 07:39 36.4 C L 60 16 125/71 96 Room Air
--- NOTE | 2023-06-11 12:35 | Hospitalist Progress Note ---
Date of Service June 11, 2023 Assessment & Plan (1) Cecum cancer: (2) Post-operative state: (3) Hypertension: (4) Anemia: (5) Renal cyst: Plan is an 83 year old woman who is s/p elective open right colon resection at [facility] on 05/06/23 for an ill-defined masslike enlargement of the cecum and terminal ileum concerning for colonic carcinoma with metastatic disease to regional lymph nodes. 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 She was transfused 3 units of pRBCs for post operative anemia. Intravenous toradol and tylenol were used for pain control. A diet of clears was started on 05/07. On 05/09 purulent drainage was noted from her drain and she had some nausea and mild distension of her abdomen. she went back to ice chips/sips and IV Zosyn was started. Perioperative clindamycin was administered (05/05-05/08). Over the next few days her diet was advanced again and her abx were continued through 05/19. 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 A repeat CT a/p was performed. The fistula output was low and her low fiber diet was continued. Patient's course notable for hypertension, which is improving with reduction of NSAIDS and titration of antihypertensives. 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 Cervantes and sridevi. PCP likely to have to place referral at discharge follow up Post-operative Hypertension Avoid NSAIDs as able Given electrolyte abnormalities, HCTZ discontinued Continue lisinopril Added amlodipine 5 mg daily blood pressure has been stable, continue to monitor Severe protein calorie malnutrition iso malignancy, 67 kilos in 01/2023, now 50kilos 19 BMI Nutritional supplements added Renal Cyst per primary team DVT Px: per primary team. Refusing Lovenox but ambulating Dispo: per primary team. she is medically stable on medicine side of things to be discharged, currently pending surgical clearance for discharge FULL CODE Pcp: Dr. Omaira Hua A total of 42 minutes was spent coordinating, documenting, and providing care for this patient excluding time spent in the performance of separately billed services. This included personally viewing all current laboratories and imaging studies, medication reconciliation, outpatient chart review, and discussion with specialists. Admission and Anticipated Discharge Date Admission Date: May 06, 2023 Supervising Physician Co-Signing Physician Notes I personally did not examine the patient. Patient care is currently being managed by MATILDE. Blood pressure trending down. Will need to titrate antihypertensives as needed. Monitor BP closely. Subjective Patient was seen and examined in 363. Follow-up cecal cancer with enterocutaneous fistula status post wound VAC. Her wound VAC remains in place. She states that she saw Cyndie for wound care this morning. She is doing well and offers no complaints. She denies fever, chills, sweats, chest pain, shortness of breath, nausea, vomiting. She does have some abdominal pain around the wound VAC. She is tolerating diet and moving bowels. Discussed with surgery. Review of Systems Review of Systems: All systems reviewed & are unremarkable except as noted in HPI & below Physical Exam Physical Exam: Gen: WD/WN, NAD, A&O x3 HEENT: Normocephalic, atraumatic, conjunctivae moist, sclerae anicteric, mucous membranes moist. Lung: Clear to Auscultation bilaterally, no wheezes/rales/rhonchi Heart: Regular rate, regular rhythm, no murmurs, rubs, or gallops Abdomen: Soft, NT, ND +BS x 4, + wound vac Extremities: No edema Skin: Warm, no rash, negative turgor. Results & Data Results & Data Vital Signs (Past 12 Hours) Vital Signs Temp Pulse Resp BP Pulse Ox O2 Del Method 06/11/23 07:39 36.4 C L 60 16 125/71 96 Room Air Laboratory Results BMP 06/11/23 06:37 Sodium 137 Potassium 4.3 Chloride 104 Carbon Dioxide 26 BUN 17 Creatinine 0.41 L Glucose 108 H Calcium 8.7 Medications Administered Current Inpatient Medications Acetaminophen (Acetaminophen 325 Mg Tab) 650 mg PO QID PRN PRN Reason: pain Stop: 07/05/23 02:29 Last Admin: 06/11/23 05:21 Dose: 650 mg Amlodipine Besylate (Amlodipine Besylate 5 Mg Tab) 5 mg PO QAM [facility] Stop: 07/11/23 08:59 Last Admin: 06/11/23 08:14 Dose: 5 mg Lisinopril/HCTZ (Lisinopril/Hctz 20/12.5mg 1 Tab Tab) 1 tab PO QAM [facility] Stop: 07/02/23 08:59 Last Admin: 06/05/23 08:51 Dose: 1 tab Hydralazine HCl (Hydralazine Hcl 20 Mg/Ml Vial) 10 mg IV Q6H PRN PRN Reason: Hypertension Stop: 07/04/23 10:09 Hydrocortisone (Hydrocortisone Hc 2.5% Crm 30gm Tube) 1 appln EXT TID PRN PRN Reason: Hemorrhoids Stop: 06/16/23 12:33 Lisinopril (Lisinopril 20 Mg Tab) 20 mg PO DAILY [facility] Stop: 07/11/23 08:59 Last Admin: 06/11/23 08:13 Dose: 20 mg Pantoprazole Sodium (Pantoprazole 40 Mg Tab) 40 mg PO BID [facility]; Protocol Stop: 06/14/23 20:59 Last Admin: 06/11/23 08:13 Dose: 40 mg Potassium Chloride (Potassium Chloride 10 Meq Tabcr) 10 meq PO DAILY [facility] Stop: 07/03/23 11:44 Last Admin: 06/11/23 08:13 Dose: 10 meq (3) Hypertension Hypertension type: primary hypertension Qualified Code(s): I10 - Essential (primary) hypertension (4) Anemia Anemia type: unspecified type Qualified Code(s): D64.9 - Anemia, unspecified
[2023-06-12 09:53] LABS: Basophils # (auto) 0.03 K/uL (0.00-0.20); Basophils % (auto) 0.4 %; Eosinophils % (auto) 2.7 %; Hematocrit (blood only) 35.4 % (37.0-47.0); Hemoglobin 10.9 g/dl (12.0-16.0); Immature Granulocytes # (auto) 0.04 K/uL (0.01-0.20); Immature Granulocytes % (auto) 0.5 %; Lymphocytes # (auto) 1.98 K/uL (1.20-3.40); Lymphocytes % (auto) 26.5 %; Mean Corpuscular Hemoglobin 23.7 pg (25.0-34.0); Mean Corpuscular Hgb Conc 30.8 g/dL (32.0-36.0); Mean Corpuscular Volume 77.1 fL (80.0-100.0); Mean Platelet Volume 10.9 fL (9.4-12.4); Monocytes # (auto) 0.52 K/uL (0.11-0.59); Neutrophils # (auto) 4.71 K/uL (1.40-6.50); Neutrophils % (auto) 62.9 %; Platelet Count 475 K/uL (130-400); RDW Coefficient of Variation 26.1 % (11.5-14.5); Red Blood Count 4.59 M/uL (4.20-5.40); White Blood Count 7.48 K/ul (4.8-10.8)
[2023-06-12 10:29] LABS: Anisocytosis Present
[2023-06-12 10:39] LABS: BUN Creatinine Ratio 31.1 (10-20); Calcium 9.5 mg/dl (8.6-10.3); Creatinine Clr Calc Pharmacy 55.4 ml/min; Est GFR (African American) 97.2 ml/min; Est GFR (Non-African American) 83.8 ml/min; Magnesium 1.9 mg/dl (1.7-2.4); Potassium 4.2 mmol/L (3.5-5.1)
--- NOTE | 2023-06-12 13:34 | Hospitalist Progress Note ---
Date of Service June 12, 2023 Assessment & Plan (1) Cecum cancer: (2) Post-operative state: (3) Hypertension: (4) Anemia: (5) Renal cyst: Plan is an 83 year old woman who is s/p elective open right colon resection at [facility] on 05/06/23 for an ill-defined masslike enlargement of the cecum and terminal ileum concerning for colonic carcinoma with metastatic disease to regional lymph nodes. 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 She was transfused 3 units of pRBCs for post operative anemia. Intravenous toradol and tylenol were used for pain control. A diet of clears was started on 05/07. On 05/09 purulent drainage was noted from her drain and she had some nausea and mild distension of her abdomen. she went back to ice chips/sips and IV Zosyn was started. Perioperative clindamycin was administered (05/05-05/08). Over the next few days her diet was advanced again and her abx were continued through 05/19. 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 A repeat CT a/p was performed. The fistula output was low and her low fiber diet was continued. Patient's course notable for hypertension, which is improving with reduction of NSAIDS and titration of antihypertensives. 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 Cervantes and sridevi. PCP likely to have to place referral at discharge follow up Post-operative Hypertension Avoid NSAIDs as able Given electrolyte abnormalities, HCTZ discontinued Continue lisinopril Added amlodipine 5 mg daily blood pressure has been stable, continue to monitor Severe protein calorie malnutrition iso malignancy, 67 kilos in 01/2023, now 50kilos 19 BMI Nutritional supplements added Renal Cyst per primary team DVT Px: per primary team. Refusing Lovenox but ambulating Dispo: per primary team. she is medically stable on medicine side of things to be discharged, currently pending surgical clearance for discharge and dispo FULL CODE Pcp: Dr. Omaira Hua A total of 40 minutes was spent coordinating, documenting, and providing care for this patient excluding time spent in the performance of separately billed services. This included personally viewing all current laboratories and imaging studies, medication reconciliation, outpatient chart review, and discussion with specialists. Admission and Anticipated Discharge Date Admission Date: May 06, 2023 Supervising Physician Co-Signing Physician Notes I personally did not examine the patient. Patient care is currently being managed by MATILDE. Subjective Patient was seen and examined in 363. Follow-up cecal cancer with enterocutaneous fistula status post wound VAC. She is upset this morning because her HR was low. She feels she is always having a new problem. She is upset with her family. She denies f/c/s, chest pain, sob, n/v/d. She is tolerating diet. She had a hamburger yesterday that made her nauseated. Review of Systems Review of Systems: All systems reviewed & are unremarkable except as noted in HPI & below Physical Exam Physical Exam: Gen: WD/WN, NAD, A&O x3 HEENT: Normocephalic, atraumatic, conjunctivae moist, sclerae anicteric, mucous membranes moist. Lung: Clear to Auscultation bilaterally, no wheezes/rales/rhonchi Heart: Regular rate, regular rhythm, no murmurs, rubs, or gallops Abdomen: Soft, NT, ND +BS x 4, + wound vac Extremities: No edema Skin: Warm, no rash, negative turgor. Results & Data Results & Data Vital Signs (Past 12 Hours) Vital Signs Temp Pulse Resp BP Pulse Ox O2 Del Method 06/12/23 07:35 36.5 C 54 L 18 120/74 99 Room Air Laboratory Results Short CBC 06/12/23 Range/Units 09:15 WBC 7.48 (4.8-10.8) K/ul Hgb 10.9 L (12.0-16.0) g/dl Hct 35.4 L (37.0-47.0) % Plt Count 475 H (130-400) K/uL BMP 06/12/23 09:15 Sodium 137 Potassium 4.2 Chloride 102 Carbon Dioxide 28 BUN 19 Creatinine 0.61 Glucose 145 H Calcium 9.5 Medications Administered Current Inpatient Medications Acetaminophen (Acetaminophen 325 Mg Tab) 650 mg PO QID PRN PRN Reason: pain Stop: 07/05/23 02:29 Last Admin: 06/12/23 08:31 Dose: 650 mg Amlodipine Besylate (Amlodipine Besylate 5 Mg Tab) 5 mg PO QAM [facility] Stop: 07/11/23 08:59 Last Admin: 06/12/23 08:02 Dose: Not Given Lisinopril/HCTZ (Lisinopril/Hctz 20/12.5mg 1 Tab Tab) 1 tab PO QAM [facility] Stop: 07/02/23 08:59 Last Admin: 06/05/23 08:51 Dose: 1 tab Hydralazine HCl (Hydralazine Hcl 20 Mg/Ml Vial) 10 mg IV Q6H PRN PRN Reason: Hypertension Stop: 07/04/23 10:09 Hydrocortisone (Hydrocortisone Hc 2.5% Crm 30gm Tube) 1 appln EXT TID PRN PRN Reason: Hemorrhoids Stop: 06/16/23 12:33 Lisinopril (Lisinopril 20 Mg Tab) 20 mg PO DAILY [facility] Stop: 07/11/23 08:59 Last Admin: 06/12/23 08:02 Dose: Not Given Pantoprazole Sodium (Pantoprazole 40 Mg Tab) 40 mg PO BID [facility]; Protocol Stop: 06/14/23 20:59 Last Admin: 06/12/23 08:02 Dose: 40 mg Potassium Chloride (Potassium Chloride 10 Meq Tabcr) 10 meq PO DAILY [facility] Stop: 07/03/23 11:44 Last Admin: 06/12/23 08:02 Dose: 10 meq (3) Hypertension Hypertension type: primary hypertension Qualified Code(s): I10 - Essential (primary) hypertension (4) Anemia Anemia type: unspecified type Qualified Code(s): D64.9 - Anemia, unspecified
--- NOTE | 2023-06-13 09:23 | Surgery Progress Note ---
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 ambulating OK fistula resolved Admission and Anticipated Discharge Date Admission Date: May 06, 2023 Subjective pain better slow progress Review of Systems Constitutional: no fever and no chills Respiratory: no dyspnea Cardiovascular: no chest pain Gastrointestinal: + abdominal pain; no nausea, no vomiting and no change in bowel habits Genitourinary: no dysuria Physical Exam Constitutional: WD/WN, vitals as above Respiratory: normal respiratory effort, lungs clear to auscultation Cardiovascular: RRR, no murmur, no edema Gastrointestinal (Abdomen): Inspection/Auscultation: normal bowel sounds; abdomen not distended Percussion/Palpation: + abdomen tender and abdomen soft; no guarding and abdomen not rigid wound vac in place Musculoskeletal: Head/Neck/Chest: normocephalic and head atraumatic Skin: no rashes, warm and dry Results & Data Vital Signs (Past 12 Hours) Vital Signs Temp Pulse Resp BP Pulse Ox O2 Del Method 06/13/23 08:35 36.5 C 71 18 108/65 98 Room Air 06/12/23 23:00 36.4 C L 68 19 136/77 96 Room Air
--- NOTE | 2023-06-13 17:08 | Hospitalist Progress Note ---
Date of Service June 13, 2023 Assessment & Plan (1) Cecum cancer: (2) Post-operative state: (3) Hypertension: (4) Anemia: (5) Renal cyst: Plan is an 83 year old woman who is s/p elective open right colon resection at [facility] on 05/06/23 for an ill-defined masslike enlargement of the cecum and terminal ileum concerning for colonic carcinoma with metastatic disease to regional lymph nodes. 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 She was transfused 3 units of pRBCs for post operative anemia. Intravenous toradol and tylenol were used for pain control. A diet of clears was started on 05/07. On 05/09 purulent drainage was noted from her drain and she had some nausea and mild distension of her abdomen. she went back to ice chips/sips and IV Zosyn was started. Perioperative clindamycin was administered (05/05-05/08). Over the next few days her diet was advanced again and her abx were continued through 05/19. 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 A repeat CT a/p was performed. The fistula output was low and her low fiber diet was continued. Patient's course notable for hypertension, which is improving with reduction of NSAIDS and titration of antihypertensives. 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 Cervantes and sridevi. PCP likely to have to place referral at discharge follow up Continue current management Disposition as per primary team Post-operative Hypertension Avoid NSAIDs as able Given electrolyte abnormalities, HCTZ discontinued Continue lisinopril Blood pressure relatively low for age Will decrease amlodipine to 2.5 mg daily Severe protein calorie malnutrition iso malignancy, 67 kilos in 01/2023, now 50kilos 19 BMI Nutritional supplements added Renal Cyst per primary team DVT Px: per primary team. Refusing Lovenox but ambulating Dispo: per primary team. she is medically stable on medicine side of things to be discharged, currently pending surgical clearance for discharge and dispo FULL CODE Admission and Anticipated Discharge Date Admission Date: May 06, 2023 Subjective Patient is seen and examined at bedside States having some abdominal discomfort but otherwise no complaints Blood pressure is well-controlled Denies any chest pain, dyspnea, nausea, vomiting Tolerating current diet Review of Systems Review of Systems: All systems reviewed & are unremarkable except as noted in Subjective Physical Exam Physical Exam: Physical Exam: Vitals signs as noted above General Appearance:Moderately built and nourished, no apparent distress Head: normocephalic, Atraumatic Eyes: normal inspection, EOMI Neck: supple, Trachea midline Respiratory/Chest: Normal breath sounds, CTA, No accessory muscle use Cardiovascular: S1, S2, No murmur Abdomen/GI:Soft, Non tender, Bowel sounds present, +Wound Vac Extremities/Musculoskeletal:normal inspection, no edema Neurologic/Psych:AAOX3, grossly no focal neurological deficits Skin: normal color, warm Results & Data Results & Data Vital Signs (Past 12 Hours) Vital Signs Temp Pulse Resp BP BP Pulse Ox O2 Del Method 06/13/23 16:26 36.7 C 70 18 114/66 98 Room Air 06/13/23 08:35 36.5 C 71 18 108/65 98 Room Air 06/13/23 07:50 Room Air (3) Hypertension Hypertension type: primary hypertension Qualified Code(s): I10 - Essential (primary) hypertension (4) Anemia Anemia type: unspecified type Qualified Code(s): D64.9 - Anemia, unspecified
[2023-06-14] MEDS: amLODIPine BESYLATE 5 MG TAB PO SCH (08:02)
--- NOTE | 2023-06-14 09:26 | Surgery Progress Note ---
Date of Service June 14, 2023 Assessment & Plan (1) Cecum cancer: Plan: fistula healed wound making progreess multiple social issues discharge planning Present on Admission?: Yes Admission and Anticipated Discharge Date Admission Date: May 06, 2023 Subjective did't sleep well po OK pain better Review of Systems Constitutional: no fever and no chills Respiratory: no cough and no dyspnea Cardiovascular: no chest pain Gastrointestinal: + abdominal pain; no nausea and no vomit ing Genitourinary: no dysuria Physical Exam Constitutional: + thin Respiratory: normal respiratory effort, lungs clear to auscultation Cardiovascular: RRR, no murmur, no edema Gastrointestinal (Abdomen): Inspection/Auscultation: abdomen normal to inspection and normal bowel sounds; abdomen not distended Percussion/Palpation: + abdomen tender and abdomen soft wound granulating well Musculoskeletal: Head/Neck/Chest: normocephalic and head atraumatic Skin: no rashes, warm and dry Results & Data Vital Signs (Past 12 Hours) Vital Signs Temp Pulse Resp BP Pulse Ox O2 Del Method 06/14/23 07:32 36.4 C L 60 16 131/76 97 Room Air
--- NOTE | 2023-06-14 18:00 | Hospitalist Progress Note ---
Date of Service June 14, 2023 Assessment & Plan (1) Cecum cancer: (2) Post-operative state: (3) Hypertension: (4) Anemia: (5) Renal cyst: Plan is an 83 year old woman who is s/p elective open right colon resection at [facility] on 05/06/23 for an ill-defined masslike enlargement of the cecum and terminal ileum concerning for colonic carcinoma with metastatic disease to regional lymph nodes. 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 She was transfused 3 units of pRBCs for post operative anemia. Intravenous toradol and tylenol were used for pain control. A diet of clears was started on 05/07. On 05/09 purulent drainage was noted from her drain and she had some nausea and mild distension of her abdomen. she went back to ice chips/sips and IV Zosyn was started. Perioperative clindamycin was administered (05/05-05/08). Over the next few days her diet was advanced again and her abx were continued through 05/19. 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 A repeat CT a/p was performed. The fistula output was low and her low fiber diet was continued. Patient's course notable for hypertension, which is improving with reduction of NSAIDS and titration of antihypertensives. 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 Cervantes and sridevi. PCP likely to have to place referral at discharge follow up Disposition as per primary team Fistula heal per surgeon Wound slowly improving as well Post-operative Hypertension Avoid NSAIDs as able Given electrolyte abnormalities, HCTZ discontinued Continue lisinopril 20 mg daily, amlodipine 2.5 mg daily BP stable Severe protein calorie malnutrition iso malignancy, 67 kilos in 01/2023, now 50kilos 19 BMI Nutritional supplements added Renal Cyst per primary team DVT Px: per primary team. Refusing Lovenox but ambulating Dispo: per primary team. she is medically stable on medicine side of things to be discharged, currently pending surgical clearance for discharge and dispo FULL CODE Admission and Anticipated Discharge Date Admission Date: May 06, 2023 Subjective Patient is seen and examined at bedside Wound VAC changed today States having abdominal discomfort after wound VAC change Otherwise no new complaints Denies any chest pain, dyspnea, nausea, vomiting Review of Systems Review of Systems: All systems reviewed & are unremarkable except as noted in Subjective Physical Exam Physical Exam: Physical Exam: Vitals signs as noted above General Appearance:Moderately built and nourished, no apparent distress Head: normocephalic, Atraumatic Eyes: normal inspection, EOMI Neck: supple, Trachea midline Respiratory/Chest: Normal breath sounds, CTA, No accessory muscle use Cardiovascular: S1, S2, No murmur Abdomen/GI:Soft, Non tender, Bowel sounds present, +Wound Vac Extremities/Musculoskeletal:normal inspection, no edema Neurologic/Psych:AAOX3, grossly no focal neurological deficits Skin: normal color, warm Results & Data Results & Data Vital Signs (Past 12 Hours) Vital Signs Temp Pulse Resp BP BP Pulse Ox O2 Del Method 06/14/23 15:18 36.4 C L 73 18 118/72 96 Room Air 06/14/23 08:00 Room Air 06/14/23 07:32 36.4 C L 60 16 131/76 97 Room Air (3) Hypertension Hypertension type: primary hypertension Qualified Code(s): I10 - Essential (primary) hypertension (4) Anemia Anemia type: unspecified type Qualified Code(s): D64.9 - Anemia, unspecified
[2023-06-14] MEDS: ACETAMINOPHEN 500 MG TAB PO ONE (22:38)
--- NOTE | 2023-06-15 05:59 | Surgery Progress Note ---
Date of Service June 15, 2023 Assessment & Plan (1) Cecum cancer: Plan: Status post right colon resection on 05/06/2023 (postop day #40) Postoperative course was complicated by an enterocutaneous fistula which has healed Continue wound VAC Continue diet as tolerated Provide analgesics as needed Ambulate as tolerated Discharge planning efforts are in place which have been complicated as patient lives alone Admission and Anticipated Discharge Date Admission Date: May 06, 2023 Subjective Patient is currently sleeping in bed but is easily aroused. She does note some abdominal pain at her incision/VAC site. She says she is tolerating solid food without any nausea or vomiting and oral intake does not seem to exacerbate any abdominal pain. She says that she has been ambulating in the hallway with the aid of a walker. She says that her bowels have moved since her surgery. She notes that she is voiding without difficulty Physical Exam Gastrointestinal (Abdomen): Abdomen is nondistended and soft. Bowel sounds are present. Wound VAC is in place and is functioning appropriately. Results & Data Vital Signs (Past 12 Hours) Vital Signs Temp Pulse Resp BP Pulse Ox O2 Del Method 06/15/23 00:25 36.6 C 72 18 120/54 L 97 Room Air 06/14/23 22:30 Room Air PG Care Time/CCT Total # of Minutes Spent Total Time Spent with Patient: Total time spent is greater than 50% in coordination of care (as documented) at patient's floor/unit and/or counseling patient: Coding Level of Care Code 61210 Post Operative Follow-Up Diagnoses Cecum cancer C18.0
--- NOTE | 2023-06-15 16:56 | Hospitalist Progress Note ---
Date of Service June 15, 2023 Assessment & Plan (1) Cecum cancer: (2) Post-operative state: (3) Hypertension: (4) Anemia: (5) Renal cyst: Plan is an 83 year old woman who is s/p elective open right colon resection at [facility] on 05/06/23 for an ill-defined masslike enlargement of the cecum and terminal ileum concerning for colonic carcinoma with metastatic disease to regional lymph nodes. 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 She was transfused 3 units of pRBCs for post operative anemia. Intravenous toradol and tylenol were used for pain control. A diet of clears was started on 05/07. On 05/09 purulent drainage was noted from her drain and she had some nausea and mild distension of her abdomen. she went back to ice chips/sips and IV Zosyn was started. Perioperative clindamycin was administered (05/05-05/08). Over the next few days her diet was advanced again and her abx were continued through 05/19. 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 A repeat CT a/p was performed. The fistula output was low and her low fiber diet was continued. Patient's course notable for hypertension, which is improving with reduction of NSAIDS and titration of antihypertensives. 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 Cervantes and sridevi. PCP likely to have to place referral at discharge follow up Disposition as per primary team Fistula heal per surgeon Wound slowly improving as well Continue current management Waiting for placement Post-operative Hypertension Avoid NSAIDs as able Given electrolyte abnormalities, HCTZ discontinued Continue lisinopril 20 mg daily, amlodipine 2.5 mg daily BP stable Severe protein calorie malnutrition iso malignancy, 67 kilos in 01/2023, now 50kilos 19 BMI Nutritional supplements added Renal Cyst per primary team DVT Px: per primary team. Refusing Lovenox but ambulating Dispo: per primary team. she is medically stable on medicine side of things to be discharged, currently pending surgical clearance for discharge and dispo FULL CODE Admission and Anticipated Discharge Date Admission Date: May 06, 2023 Subjective Patient is seen and examined at bedside Abdominal pain at wound VAC site better today Offers no new complaints Denies any chest pain, dyspnea, nausea, vomiting Review of Systems Review of Systems: All systems reviewed & are unremarkable except as noted in Subjective Physical Exam Physical Exam: Physical Exam: Vitals signs as noted above General Appearance:Moderately built and nourished, no apparent distress Head: normocephalic, Atraumatic Eyes: normal inspection, EOMI Neck: supple, Trachea midline Respiratory/Chest: Normal breath sounds, CTA, No accessory muscle use Cardiovascular: S1, S2, No murmur Abdomen/GI:Soft, Non tender, Bowel sounds present, +Wound Vac Extremities/Musculoskeletal:normal inspection, no edema Neurologic/Psych:AAOX3, grossly no focal neurological deficits Skin: normal color, warm Results & Data Results & Data Vital Signs (Past 12 Hours) Vital Signs Temp Pulse Resp BP Pulse Ox O2 Del Method 06/15/23 15:30 36.9 C 74 18 108/67 97 Room Air 06/15/23 08:00 Room Air 06/15/23 07:35 36.8 C 67 18 118/61 95 Room Air (3) Hypertension Hypertension type: primary hypertension Qualified Code(s): I10 - Essential (primary) hypertension (4) Anemia Anemia type: unspecified type Qualified Code(s): D64.9 - Anemia, unspecified
[2023-06-15] MEDS: ACETAMINOPHEN 500 MG TAB PO PRN (19:38)
--- NOTE | 2023-06-16 04:52 | Surgery Progress Note ---
Date of Service June 16, 2023 Assessment & Plan (1) Cecum cancer: Plan: Status post right colon resection on 05/06/2023 (postop day #41) Postoperative course was complicated by an enterocutaneous fistula which has healed Continue wound VAC Continue diet as tolerated Continue analgesics as needed Continue to ambulate periodically Discharge planning efforts are in place which have been complicated as patient lives alone Admission and Anticipated Discharge Date Admission Date: May 06, 2023 Subjective Patient is resting comfortably in bed. She does not report any changes over the past 24 hours. She notes she is tolerating solid food. She denies any nausea or vomiting. She notes she continues to ambulate periodically in the hallway. She notes that she did have a bowel movement 2 days ago. Physical Exam Gastrointestinal (Abdomen): Abdomen is soft and nonrigid. Wound VAC is in place and appears to be working appropriately. Results & Data Vital Signs (Past 12 Hours) Vital Signs Temp Pulse Resp BP Pulse Ox O2 Del Method 06/15/23 23:51 36.6 C 54 L 16 107/63 98 Room Air 06/15/23 19:30 Room Air PG Care Time/CCT Total # of Minutes Spent Total Time Spent with Patient: Total time spent is greater than 50% in coordination of care (as documented) at patient's floor/unit and/or counseling patient: Coding Level of Care Code 36743 Post Operative Follow-Up Diagnoses Cecum cancer C18.0
--- NOTE | 2023-06-16 17:12 | Hospitalist Progress Note ---
Date of Service June 16, 2023 Assessment & Plan (1) Cecum cancer: (2) Post-operative state: (3) Hypertension: (4) Anemia: (5) Renal cyst: Plan is an 83 year old woman who is s/p elective open right colon resection at [facility] on 05/06/23 for an ill-defined masslike enlargement of the cecum and terminal ileum concerning for colonic carcinoma with metastatic disease to regional lymph nodes. 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 She was transfused 3 units of pRBCs for post operative anemia. Intravenous toradol and tylenol were used for pain control. A diet of clears was started on 05/07. On 05/09 purulent drainage was noted from her drain and she had some nausea and mild distension of her abdomen. she went back to ice chips/sips and IV Zosyn was started. Perioperative clindamycin was administered (05/05-05/08). Over the next few days her diet was advanced again and her abx were continued through 05/19. 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 A repeat CT a/p was performed. The fistula output was low and her low fiber diet was continued. Patient's course notable for hypertension, which is improving with reduction of NSAIDS and titration of antihypertensives. 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 Cervantes and sridevi. PCP likely to have to place referral at discharge follow up Disposition as per primary team Fistula healed per surgeon Waiting for placement Wound slowly improving Pain is controlled Post-operative Hypertension Avoid NSAIDs as able Given electrolyte abnormalities, HCTZ discontinued Continue lisinopril 20 mg daily, amlodipine 2.5 mg daily BP stable on current regimen Monitor BP Severe protein calorie malnutrition iso malignancy, 67 kilos in 01/2023, now 50kilos 19 BMI Nutritional supplements added Renal Cyst per primary team DVT Px: per primary team. Refusing Lovenox but ambulating Dispo: per primary team. she is medically stable on medicine side of things to be discharged, currently pending surgical clearance for discharge and dispo FULL CODE Admission and Anticipated Discharge Date Admission Date: May 06, 2023 Subjective Patient is seen and examined at bedside States feeling better today No new complaints Abdominal pain is controlled Waiting for placement Denies any chest pain, dyspnea, nausea, vomiting Review of Systems Review of Systems: All systems reviewed & are unremarkable except as noted in Subjective Physical Exam Physical Exam: Physical Exam: Vitals signs as noted above General Appearance:Moderately built and nourished, no apparent distress Head: normocephalic, Atraumatic Eyes: normal inspection, EOMI Neck: supple, Trachea midline Respiratory/Chest: Normal breath sounds, CTA, No accessory muscle use Cardiovascular: S1, S2, No murmur Abdomen/GI:Soft, Non tender, Bowel sounds present, +Wound Vac Extremities/Musculoskeletal:normal inspection, no edema Neurologic/Psych:AAOX3, grossly no focal neurological deficits Skin: normal color, warm Results & Data Results & Data Vital Signs (Past 12 Hours) Vital Signs Temp Pulse Resp BP Pulse Ox O2 Del Method 06/16/23 15:55 36.5 C 71 18 121/62 96 Room Air 06/16/23 07:27 36.5 C 65 18 110/65 96 Room Air (3) Hypertension Hypertension type: primary hypertension Qualified Code(s): I10 - Essential (primary) hypertension (4) Anemia Anemia type: unspecified type Qualified Code(s): D64.9 - Anemia, unspecified
--- NOTE | 2023-06-17 12:29 | Surgery Progress Note ---
Date of Service June 17, 2023 Assessment & Plan (1) Cecum cancer: Plan: check labs in AM wound vac in place Admission and Anticipated Discharge Date Admission Date: May 06, 2023 Subjective having some more abd pain eating well moving bowels Review of Systems Constitutional: no fever and no chills Respiratory: no cough and no dyspnea Cardiovascular: no chest pain Gastrointestinal: + abdominal pain; no nausea, no vomiting , no change in bowel habits and no diarrhea/loose stools Genitourinary: no dysuria Physical Exam Constitutional: + thin Respiratory: normal respiratory effort, lungs clear to auscultation Cardiovascular: RRR, no murmur, no edema Gastrointestinal (Abdomen): Inspection/Auscultation: abdomen normal to inspection and normal bowel sounds; abdomen not distended Percussion/Palpation: + abdomen tender and abdomen soft; no guarding and abdomen not rigid Musculoskeletal: Head/Neck/Chest: normocephalic and head atraumatic Results & Data Vital Signs (Past 12 Hours) Vital Signs Temp Pulse Resp BP Pulse Ox O2 Del Method 06/17/23 08:30 Room Air 06/17/23 07:19 36.5 C 64 16 124/66 97 Room Air
--- NOTE | 2023-06-17 13:33 | XRay Report ---
KUB CLINICAL HISTORY: Abdominal pain and nausea. COMPARISON STUDY: CT of the abdomen and pelvis May 18, 2023. FINDINGS: A wound VAC projects over the abdomen. The bowel gas pattern is normal. Right abdominal mateo gical staple line is incidentally noted. The amount of stool is within normal limits. IMPRESSION: No evidence for a bowel obstruction. ACT 112: Negative or not required by law. Electronically signed by: Kan Artis M.D. 06/17/2023 1:31 PM
--- NOTE | 2023-06-17 17:09 | Hospitalist Progress Note ---
Date of Service June 17, 2023 Assessment & Plan (1) Cecum cancer: (2) Post-operative state: (3) Hypertension: (4) Anemia: (5) Renal cyst: Plan is an 83 year old woman who is s/p elective open right colon resection at [facility] on 05/06/23 for an ill-defined masslike enlargement of the cecum and terminal ileum concerning for colonic carcinoma with metastatic disease to regional lymph nodes. 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 She was transfused 3 units of pRBCs for post operative anemia. Intravenous toradol and tylenol were used for pain control. A diet of clears was started on 05/07. On 05/09 purulent drainage was noted from her drain and she had some nausea and mild distension of her abdomen. she went back to ice chips/sips and IV Zosyn was started. Perioperative clindamycin was administered (05/05-05/08). Over the next few days her diet was advanced again and her abx were continued through 05/19. 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 A repeat CT a/p was performed. The fistula output was low and her low fiber diet was continued. Patient's course notable for hypertension, which is improving with reduction of NSAIDS and titration of antihypertensives. 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 Cervantes and sridevi. PCP likely to have to place referral at discharge follow up Disposition as per primary team Fistula healed per surgeon Waiting for placement Wound slowly improving Abd pain is variable KUB today showed no signs of obstruction Post-operative Hypertension Avoid NSAIDs as able Given electrolyte abnormalities, HCTZ discontinued Continue lisinopril 20 mg daily, amlodipine 2.5 mg daily BP stable on current regimen Monitor BP Severe protein calorie malnutrition iso malignancy, 67 kilos in 01/2023, now 50kilos 19 BMI Nutritional supplements added Renal Cyst per primary team DVT Px: per primary team. Refusing Lovenox but ambulating Dispo: per primary team. she is medically stable on medicine side of things to be discharged, currently pending surgical clearance for discharge and dispo FULL CODE Admission and Anticipated Discharge Date Admission Date: May 06, 2023 Subjective Patient is seen and examined at bedside States having increased abdominal pain today KUB showed no signs of obstruction Denies any chest pain, dyspnea, nausea, vomiting Review of Systems Review of Systems: All systems reviewed & are unremarkable except as noted in Subjective Physical Exam Physical Exam: Physical Exam: Vitals signs as noted above General Appearance:Moderately built and nourished, no apparent distress Head: normocephalic, Atraumatic Eyes: normal inspection, EOMI Neck: supple, Trachea midline Respiratory/Chest: Normal breath sounds, CTA, No accessory muscle use Cardiovascular: S1, S2, No murmur Abdomen/GI:Soft, Non tender, Bowel sounds present, +Wound Vac Extremities/Musculoskeletal:normal inspection, no edema Neurologic/Psych:AAOX3, grossly no focal neurological deficits Skin: normal color, warm Results & Data Results & Data Vital Signs (Past 12 Hours) Vital Signs Temp Pulse Resp BP Pulse Ox O2 Del Method 06/17/23 14:09 36.6 C 70 16 105/65 97 Room Air 06/17/23 08:30 Room Air 06/17/23 07:19 36.5 C 64 16 124/66 97 Room Air (3) Hypertension Hypertension type: primary hypertension Qualified Code(s): I10 - Essential (primary) hypertension (4) Anemia Anemia type: unspecified type Qualified Code(s): D64.9 - Anemia, unspecified
[2023-06-18 08:17] LABS: Basophils # (auto) 0.04 K/uL (0.00-0.20); Basophils % (auto) 0.4 %; Eosinophils # (auto) 0.22 K/uL (0.00-0.50); Eosinophils % (auto) 2.2 %; Hemoglobin 9.8 g/dl (12.0-16.0); Immature Granulocytes # (auto) 0.04 K/uL (0.01-0.20); Immature Granulocytes % (auto) 0.4 %; Lymphocytes # (auto) 1.98 K/uL (1.20-3.40); Lymphocytes % (auto) 19.6 %; Mean Corpuscular Hemoglobin 23.9 pg (25.0-34.0); Mean Corpuscular Hgb Conc 31.6 g/dL (32.0-36.0); Mean Corpuscular Volume 75.6 fL (80.0-100.0); Mean Platelet Volume 10.1 fL (9.4-12.4); Monocytes # (auto) 0.53 K/uL (0.11-0.59); Monocytes % (auto) 5.3 %; Neutrophils # (auto) 7.28 K/uL (1.40-6.50); Neutrophils % (auto) 72.1 %; Platelet Count 351 K/uL (130-400); RDW Standard Deviation 68.4 fL (36.4-46.3); White Blood Count 10.09 K/ul (4.8-10.8)
[2023-06-18 08:31] LABS: Albumin Globulin Ratio 1.4 (0.9-2); Albumin Level 3.6 gm/dl (3.4-5.0); BUN Creatinine Ratio 33.3 (10-20); Bilirubin,Total 0.2 mg/dl (0.2-1.0); Calcium 8.8 mg/dl (8.6-10.3); Creatinine Clr Calc Pharmacy 66.2 ml/min; Est GFR (African American) 103.1 ml/min; Est GFR (Non-African American) 88.9 ml/min; Globulin 2.6 gm/dl (2.5-4.0); Potassium 4.4 mmol/L (3.5-5.1); Total Protein 6.2 gm/dl (6.0-8.3)
[2023-06-18 08:57] LABS: Anisocytosis Present; Ovalocytes 1+
[2023-06-18] MEDS ORDERED: POLYETHYLENE (MIRALAX) 17 GM PACK PO PRN (09:38)
--- NOTE | 2023-06-18 09:42 | Surgery Progress Note ---
Date of Service June 18, 2023 Assessment & Plan (1) Cecum cancer: Plan: con't wound vac miralax PRN possible CT scan on after wound vac change if pain not improve no signs of infection or fistula currently Present on Admission?: Yes Admission and Anticipated Discharge Date Admission Date: May 06, 2023 Subjective still with abdominal pain labs all good afebrile wound vac changed tomorrow Review of Systems Constitutional: no fever and no chills Respiratory: no dyspnea Cardiovascular: no chest pain Gastrointestinal: + abdominal pain and + constipation; no nausea and no vomiting Genitourinary: no dysuria Neurologic: no localized weakness Psychiatric: no behavioral changes Physical Exam Respiratory: normal respiratory effort, lungs clear to auscultation Cardiovascular: RRR, no murmur, no edema Gastrointestinal (Abdomen): Inspection/Auscultation: abdomen normal to inspection and normal bowel sounds; abdomen not distended Percussion/Palpation: + abdomen tender and abdomen soft; no guarding and abdomen not rigid wound vac in place; granulating well Musculoskeletal: Head/Neck/Chest: normocephalic and head atraumatic Results & Data Vital Signs (Past 12 Hours) Vital Signs Temp Pulse Resp BP Pulse Ox O2 Del Method 06/18/23 07:10 36.3 C L 60 16 121/70 96 Room Air
--- NOTE | 2023-06-18 17:40 | Hospitalist Progress Note ---
Date of Service June 18, 2023 Assessment & Plan (1) Cecum cancer: (2) Post-operative state: (3) Hypertension: (4) Anemia: (5) Renal cyst: Plan is an 83 year old woman who is s/p elective open right colon resection at [facility] on 05/06/23 for an ill-defined masslike enlargement of the cecum and terminal ileum concerning for colonic carcinoma with metastatic disease to regional lymph nodes. 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 She was transfused 3 units of pRBCs for post operative anemia. Intravenous toradol and tylenol were used for pain control. A diet of clears was started on 05/07. On 05/09 purulent drainage was noted from her drain and she had some nausea and mild distension of her abdomen. she went back to ice chips/sips and IV Zosyn was started. Perioperative clindamycin was administered (05/05-05/08). Over the next few days her diet was advanced again and her abx were continued through 05/19. 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 A repeat CT a/p was performed. The fistula output was low and her low fiber diet was continued. Patient's course notable for hypertension, which is improving with reduction of NSAIDS and titration of antihypertensives. 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 Cervantes and srdievi. PCP likely to have to place referral at discharge follow up Disposition as per primary team Fistula healed per surgeon Wound slowly improving Abd pain is variable Surgery plans for CT scan on after wound VAC change Disposition as per primary team Post-operative Hypertension Avoid NSAIDs as able Given electrolyte abnormalities, HCTZ discontinued Continue lisinopril 20 mg daily, amlodipine 2.5 mg daily BP stable on current regimen Monitor BP Severe protein calorie malnutrition iso malignancy, 67 kilos in 01/2023, now 50kilos 19 BMI Nutritional supplements added Renal Cyst per primary team DVT Px: per primary team. Refusing Lovenox but ambulating Dispo: per primary team. she is medically stable on medicine side of things to be discharged, currently pending surgical clearance for discharge and dispo FULL CODE Admission and Anticipated Discharge Date Admission Date: May 06, 2023 Subjective Patient is seen and examined at bedside States feeling better today Less abd pain today Denies any chest pain, dyspnea, nausea, vomiting Review of Systems Review of Systems: All systems reviewed & are unremarkable except as noted in Subjective Physical Exam Physical Exam: Physical Exam: Vitals signs as noted above General Appearance:Moderately built and nourished, no apparent distress Head: normocephalic, Atraumatic Eyes: normal inspection, EOMI Neck: supple, Trachea midline Respiratory/Chest: Normal breath sounds, CTA, No accessory muscle use Cardiovascular: S1, S2, No murmur Abdomen/GI:Soft, Non tender, Bowel sounds present, +Wound Vac Extremities/Musculoskeletal:normal inspection, no edema Neurologic/Psych:AAOX3, grossly no focal neurological deficits Skin: normal color, warm Results & Data Results & Data Vital Signs (Past 12 Hours) Vital Signs Temp Pulse Resp BP Pulse Ox O2 Del Method 06/18/23 14:25 36.6 C 73 16 101/61 97 Room Air 06/18/23 07:10 36.3 C L 60 16 121/70 96 Room Air Laboratory Results Short CBC 06/18/23 Range/Units 07:39 WBC 10.09 (4.8-10.8) K/ul Hgb 9.8 L (12.0-16.0) g/dl Hct 31.0 L (37.0-47.0) % Plt Count 351 (130-400) K/uL BMP 06/18/23 07:39 Sodium 139 Potassium 4.4 Chloride 104 Carbon Dioxide 28 BUN 17 Creatinine 0.51 L Glucose 95 Calcium 8.8 Liver Function 06/18/23 Range/Units 07:39 Total Bilirubin 0.2 (0.2-1.0) mg/dl AST 14 (13-39) U/L ALT 8 (7-52) U/L Alkaline Phosphatase 73 (34-104) U/L Albumin 3.6 (3.4-5.0) gm/dl (3) Hypertension Hypertension type: primary hypertension Qualified Code(s): I10 - Essential (primary) hypertension (4) Anemia Anemia type: unspecified type Qualified Code(s): D64.9 - Anemia, unspecified
--- NOTE | 2023-06-19 12:32 | Surgery Progress Note ---
Date of Service June 19, 2023 Assessment & Plan (1) Cecum cancer: Plan: wound progressing will check CT in AM with previous fistula and pain Admission and Anticipated Discharge Date Admission Date: May 06, 2023 Subjective abdominal discomfort Review of Systems Constitutional: no fever and no chills Respiratory: no cough and no dyspnea Cardiovascular: no chest pain Gastrointestinal: + abdominal pain; no nausea, no vomiting and no change in bowel habits Genitourinary: no dysuria Physical Exam Constitutional: WD/WN, vitals as above Respiratory: normal respiratory effort, lungs clear to auscultation Cardiovascular: RRR, no murmur, no edema Gastrointestinal (Abdomen): Inspection/Auscultation: abdomen normal to inspection and normal bowel sounds; abdomen not distended Percussion/Palpation: + abdomen tender and abdomen soft; no guarding and abdomen not rigid wound vac in place Musculoskeletal: Head/Neck/Chest: normocephalic and head atraumatic Results & Data Vital Signs (Past 12 Hours) Vital Signs Temp Pulse Resp BP Pulse Ox O2 Del Method 06/19/23 07:21 36.6 C 59 L 16 127/72 98 Room Air
--- NOTE | 2023-06-19 15:27 | Hospitalist Progress Note ---
Date of Service June 19, 2023 Assessment & Plan (1) Cecum cancer: (2) Post-operative state: (3) Hypertension: (4) Anemia: (5) Renal cyst: Plan 83 year old woman who is s/p elective open right colon resection at [facility] on 05/06/23 for an ill-defined masslike enlargement of the cecum and terminal ileum concerning for colonic carcinoma with metastatic disease to regional lymph nodes. 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 She was transfused 3 units of pRBCs for post operative anemia. Intravenous toradol and tylenol were used for pain control. A diet of clears was started on 05/07. On 05/09 purulent drainage was noted from her drain and she had some nausea and mild distension of her abdomen. she went back to ice chips/sips and IV Zosyn was started. Perioperative clindamycin was administered (05/05-05/08). Over the next few days her diet was advanced again and her abx were continued through 05/19. 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 A repeat CT a/p was performed. The fistula output was low and her low fiber diet was continued. Patient's course notable for hypertension, which is now controlled with reduction of NSAIDS and titration of antihypertensives. 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 Cervantes and sridevi. Nurse coordinator Andrei working on Onc Follow up/Appt Disposition as per primary team Fistula healed per surgeon Surgery plans for CT scan tomorrow after wound VAC change Will follow up result Hypertension Avoid NSAIDs as able Given electrolyte abnormalities, HCTZ was discontinued Continue lisinopril 20 mg daily, amlodipine 2.5 mg daily BP stable on current regimen Monitor BP Severe protein calorie malnutrition In the setting of malignancy, 67 kilos in 01/2023, now 50kilos 19 BMI Continue nutritional supplements Renal Cyst per primary team DVT Px: per primary team. Refused Lovenox Ambulate FULL CODE I spent a total of 35 minutes coordinating, documenting and providing care for this patient excluding time spent in performance of separately billed services Admission and Anticipated Discharge Date Admission Date: May 06, 2023 Subjective Reports mild abd pain Denied any other complaints Concerned about ambulating with her drains/walker Physical Exam Constitutional: + well hydrated; no acute distress Eyes: PERRL, conjunctivae normal, anicteric sclerae ENMT: external ear and nose normal, oropharynx normal Respiratory: normal respiratory effort, lungs clear to auscultation Cardiovascular: S1 S2 Gastrointestinal (Abdomen): Soft, +tenderness, Wound vac in situ, normal bowel sonds Musculoskeletal: No pedal edema Neurologic: PERRL, EOMI, accommodation nl, no face palsy, no dysarthria Psychiatric: A+Ox3, euthymic affect Results & Data Results & Data Vital Signs (Past 12 Hours) Vital Signs Temp Pulse Resp BP Pulse Ox O2 Del Method 06/19/23 14:56 36.6 C 65 16 115/68 98 Room Air 06/19/23 07:21 36.6 C 59 L 16 127/72 98 Room Air (3) Hypertension Hypertension type: primary hypertension Qualified Code(s): I10 - Essential (primary) hypertension (4) Anemia Anemia type: unspecified type Qualified Code(s): D64.9 - Anemia, unspecified
[2023-06-20 07:50] LABS: BUN Creatinine Ratio 38.5 (10-20); Est GFR (African American) 102.4 ml/min; Est GFR (Non-African American) 88.4 ml/min; Potassium 4.4 mmol/L (3.5-5.1)
[2023-06-20] MEDS: OPTIRAY 320 100ml IV ONE (09:02)
--- NOTE | 2023-06-20 09:41 | CT Scan Report ---
CT SCAN OF THE ABDOMEN AND PELVIS WITH IV CONTRAST CLINICAL HISTORY: Generalized abdominal pain. Report history of fistula. COMPARISON STUDY: Abdominal CT dated 05/18/2023. TECHNIQUE: Following the IV administration of 93 cc of Optiray 320, CT scan of the abdomen and pelvi s is performed from the lung bases to the proximal femora. Images are reviewed in the axial, sagittal , and coronal planes. IV contrast was administered without complication. Oral contrast was utilized. A dose lowering technique was utilized adhering to the principles of ALARA. The examination is degrad ed by motion artifact. CT DOSE: 496.89 mGy.cm FINDINGS: Lung bases: The heart is mildly enlarged and without pericardial effusion. The coronary arteries are densely calcified. Scarring/atelectasis is noted at the lung bases. The lung bases are otherwise donna r. Liver: The contrast-enhanced liver is normal in size, contour, and attenuation. There is no intrahepa tic biliary ductal dilatation. The hepatic veins and portal veins are patent. Gallbladder: Unremarkable. Spleen: Normal in size and attenuation. Pancreas: Unremarkable. Adrenal glands: There is nonspecific thickening of the adrenal glands. Kidneys: The contrast enhanced kidneys are normal in size and without hydronephrosis. The kidneys enh ance symmetrically. Scattered left renal cysts measure up to 3.3 cm. Abdominal vasculature: There is advanced atherosclerotic calcification and ectasia of the abdominal a tenisha. Bowel: There are scattered colonic diverticula without CT evidence of acute diverticulitis. There is postsurgical change from right hemicolectomy with ileocolic anastomosis. No bowel obstruction is seen . Enteric contrast reaches the colon. Peritoneum: There is no intraperitoneal free air or abdominal ascites. Foci of induration in the righ t lower quadrant mesentery likely represent fat necrosis. A surgical drain has been removed as compar ed to previous. Postsurgical change is seen in the ventral abdominal wall. There is no convincing CT evidence of enterocutaneous fistula. Lymphadenopathy: None. Pelvic viscera: The bladder wall is markedly thickened with mucosal hyperemia and surrounding inflamm ation. The uterus is surgically absent. No adnexal lesion is seen. Skeletal structures: The skeletal structures are osteopenic. There is mild lumbosacral spondylosis. S clerotic change is noted in the sacroiliac joints. No lytic or blastic lesions are seen. IMPRESSION: 1. Cystitis. Correlate with clinical findings and urinalysis. 2. There is postsurgical change from right hemicolectomy with ileocolic anastomosis. No bowel obstruc tion is seen. 3. Foci of induration within the right lower quadrant mesentery likely represent fat necrosis. 4. Additional findings as above. ACT 112: Negative or not required by law. Electronically signed by: Roberth Chen M.D. 06/20/2023 9:40 AM
--- NOTE | 2023-06-20 12:53 | Surgery Progress Note ---
Date of Service June 20, 2023 Assessment & Plan (1) Cecum cancer: Plan: good progress CT clean (2) Cystitis: Plan: will ask urology if ant treatment needed Admission and Anticipated Discharge Date Admission Date: May 06, 2023 Subjective still with pain CT scan shows possible cystitis o/w no disease Review of Systems Constitutional: no fever and no chills Respiratory: no cough and no dyspnea Cardiovascular: no chest pain Gastrointestinal: + abdominal pain and + diarrhea/loose st ools; no nausea and no vomiting Genitourinary: no dysuria Results & Data Vital Signs (Past 12 Hours) Vital Signs Temp Pulse Resp BP Pulse Ox O2 Del Method 06/20/23 07:24 36.2 C L 63 16 128/74 98 Room Air Diagnostic Findings CT SCAN OF THE ABDOMEN AND PELVIS WITH IV CONTRAST CLINICAL HISTORY: Generalized abdominal pain. Report history of fistula. COMPARISON STUDY: Abdominal CT dated 05/18/2023. TECHNIQUE: Following the IV administration of 93 cc of Optiray 320, CT scan of the abdomen and pelvis is performed from the lung bases to the proximal femora. Images are reviewed in the axial, sagittal, and coronal planes. IV contrast was administered without complication. Oral contrast was utilized. A dose lowering technique was utilized adhering to the principles of ALARA. The examination is degraded by motion artifact. CT DOSE: 496.89 mGy.cm FINDINGS: Lung bases: The heart is mildly enlarged and without pericardial effusion. The coronary arteries are densely calcified. Scarring/atelectasis is noted at the lung bases. The lung bases are otherwise clear. Liver: The contrast-enhanced liver is normal in size, contour, and attenuation. There is no intrahepatic biliary ductal dilatation. The hepatic veins and portal veins are patent. Gallbladder: Unremarkable. Spleen: Normal in size and attenuation. Pancreas: Unremarkable. Adrenal glands: There is nonspecific thickening of the adrenal glands. Kidneys: The contrast enhanced kidneys are normal in size and without hydronephrosis. The kidneys enhance symmetrically. Scattered left renal cysts measure up to 3.3 cm. Abdominal vasculature: There is advanced atherosclerotic calcification and ectasia of the abdominal aorta. Bowel: There are scattered colonic diverticula without CT evidence of acute diverticulitis. There is postsurgical change from right hemicolectomy with ileocolic anastomosis. No bowel obstruction is seen. Enteric contrast reaches the colon. Peritoneum: There is no intraperitoneal free air or abdominal ascites. Foci of induration in the right lower quadrant mesentery likely represent fat necrosis. A surgical drain has been removed as compared to previous. Postsurgical change is seen in the ventral abdominal wall. There is no convincing CT evidence of enterocutaneous fistula. Lymphadenopathy: None. Pelvic viscera: The bladder wall is markedly thickened with mucosal hyperemia and surrounding inflammation. The uterus is surgically absent. No adnexal lesion is seen. Skeletal structures: The skeletal structures are osteopenic. There is mild lumbosacral spondylosis. Sclerotic change is noted in the sacroiliac joints. No lytic or blastic lesions are seen. IMPRESSION: 1. Cystitis. Correlate with clinical findings and urinalysis. 2. There is postsurgical change from right hemicolectomy with ileocolic anastomosis. No bowel obstruction is seen. 3. Foci of induration within the right lower quadrant mesentery likely represent fat necrosis. 4. Additional findings as above.
--- NOTE | 2023-06-20 13:47 | Urology Consultation ---
Date of Consultation June 20, 2023 Assessment & Plan (1) Cystitis: (2) Abdominal pain: Plan 83-year-old status post right colon resection at [facility] on 05/06/2023 for cecum cancer, now with question of cystitis based on CT scan. Currently hemodynamically stable, although history suggestive of possible UTI Recommendations: Obtain a UA and urine culture to identify organisms for cystitis Begin broad-spectrum antibiotics and narrow coverage as culture data becomes available Can also offer Pyridium for comfort from dysuria Would recommend bladder scan/PVR to ensure she is emptying Urology will sign off -can arrange as needed outpatient follow-up if she has ongoing UTIs. Please contact us for any additional questions or concerns or changes in patient's status Supervising Physician Co-Signing Physician Notes I have discussed Ms. Walden's case with RIKA Burch and agree with the above documentation. Gladys remains hemodynamically stable with no elevated WBC. CT scan demonstrates both kidneys in normal position with no hydronephrosis or evidence of obstruction. Bladder wall is thickened which could be chronic or could represent an acute cystitis. Reasonable to treat with broad-spectrum antibiotics and narrow coverage as culture data becomes available. Would recommend bladder scan to ensure she is emptying well and consider CIC or catheter if she is in retention. -Carmine Matta MD. 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 Hospital course has been complicated by anemia, enterocutaneous fistula- currently healed-, wound slowly improving, hypertension. Per notes she has had variable abdominal pain and a CT was ordered to identify cause of pain. CT of the A/P on 06/20/2023 shows the contrast enhanced kidneys are normal in size without hydronephrosis. The kidneys enhance symmetrically. Scattered left renal cysts up to 3.3 cm. The bladder wall is markedly thickened with mucosal hyperemia and surrounding inflammation. Urology was consulted today for possible cystitis identified on CT with associated abdominal pain. Labs reviewed 06/20/2023 Creatinine 0.52 Glucose 100 WBCs 10.09 Hemoglobin 9.8 Hematocrit 31.0% Patient assessed at bedside. She has had dysuria and burning in the vaginal area for approximately 3 days. She has been voiding spontaneously without gross hematuria. She has had abdominal pain that has been intermittent since her hospital stay but has trouble describing where. She does admit to some pain radiating to the flank area. Minimal abdominal pressure prior to voiding. She admits to chills, denies fevers, nausea or vomiting. She does note that she has had a bladder prolapse in the past with pessary changed through [facility]. She notes that she was having bladder and/or kidney infections and was taking some "potent antibiotics" last year sometime around September. Allergies Allergy/AdvReac Type Severity Reaction Status Date / Time azithromycin Allergy Diarrhea Verified 05/06/23 10:03 Cephalosporins Allergy unsure of Verified 05/06/23 10:03 reaction methylprednisolone AdvReac Severe [place] like Verified 05/06/23 10:36 back and stomach were on fire. aspirin AdvReac Unknown "made me Verified 05/06/23 10:36 feel weird" Home Medications Medication Instructions Recorded Confirmed Type lisinopril 20 mg tablet 20 mg PO QAM 04/30/20 05/06/23 History tramadol 50 mg tablet 50 mg PO BID PRN pain #11 tabs 04/05/23 05/06/23 Rx acetaminophen 500 mg tablet 500 mg PO Q6H PRN Pain 05/06/23 05/06/23 History amlodipine 10 mg tablet 10 mg PO DAILY #30 tabs 06/06/23 Rx pantoprazole 40 mg tablet,delayed 40 mg PO BID #60 tabs 06/06/23 Rx release Patient History Medical History (Updated 06/20/23 @ 15:01 by RIKA Casiano) Encounter for pre-operative examination Hypertension Cecum cancer Hip pain, right Anxiety Hx of migraines Smoker Age related osteoporosis Vaginal vault prolapse after hysterectomy Hypercholesterolemia Surgical History (Updated 06/01/23 @ 11:11 by Kae Kahn DO) Hx of hysterectomy w/ removal remaining fallopian tube and ovary Hx of unilateral oophorectomy w/removal appendix>also removed "a 25 lb chocolate cyst and chocolate fluid" Social History Smoking Status: Current every day smoker Tobacco Type: Cigarettes Cigarettes Per Day: 1 ppd; Second Hand Exposure: Yes (childhood); Do You Dip or Chew Tobacco: No; Tobacco Cessation Education Requested by Patient: No Hx Alcohol Use: No Hx Substance Use: No Preferred Language: Mongolian Communication Ability: Effective Bearing Maker Required: No Beliefs That Will Affect Care: None Current Living Situation: Alone Other Information That Helps Us Care for You: No Feels Safe at Home: Yes Safety Concerns: Feels Safe At This Time Assistive Devices: None Review of Systems Review of Systems: 14 point review of systems negative exce pt for otherwise indicated. Physical Exam Constitutional: + thin; no acute distress Eyes: + anicteric sclerae; pupils not irregula r Respiratory: normal respiratory effort; no respiratory distress, does not use accessory muscles and normal respiratory pattern Cardiovascular: well perfused Gastrointestinal (Abdomen): Inspection/Auscultation: + abdomen abnormal to inspection Percussion/Palpation: + abdomen tender and abdomen soft Wound VAC in place Musculoskeletal: Extremities: extremities normal to inspection Skin: no rashes, warm and dry normal turgor Neurologic: moves all extremities and awake Speech / Cognition: normal speech Psychiatric: Orientation: alert and oriented x 3 Eye Contact: good eye contact Affect: + tearful affect Results & Data Vital Signs (Past 12 Hours) Vital Signs Temp Pulse Resp BP Pulse Ox O2 Del Method 06/20/23 07:24 36.2 C L 63 16 128/74 98 Room Air PG Care Time/CCT Total # of Minutes Spent Total Time Spent with Patient: Total time spent is greater than 50% in coordination of care (as documented) at patient's floor/unit and/or counseling patient: Coding Level of Care Code 49481 INT INP/OBS CARE 2/55MIN Diagnoses Cystitis N30.90 Generalized abdominal pain R10.84 Abdominal location: generalized (2) Abdominal pain Abdominal location: generalized Qualified Code(s): R10.84 - Generalized abdominal pain
--- NOTE | 2023-06-20 14:18 | Hospitalist Progress Note ---
Date of Service June 20, 2023 Assessment & Plan (1) Cecum cancer: (2) Post-operative state: (3) Hypertension: (4) Anemia: (5) Renal cyst: Plan 83 year old woman who is s/p elective open right colon resection at [facility] on 05/06/23 for an ill-defined masslike enlargement of the cecum and terminal ileum concerning for colonic carcinoma with metastatic disease to regional lymph nodes. 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 She was transfused 3 units of pRBCs for post operative anemia. Intravenous toradol and tylenol were used for pain control. A diet of clears was started on 05/07. On 05/09 purulent drainage was noted from her drain and she had some nausea and mild distension of her abdomen. she went back to ice chips/sips and IV Zosyn was started. Perioperative clindamycin was administered (05/05-05/08). Over the next few days her diet was advanced again and her abx were continued through 05/19. 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 A repeat CT a/p was performed. The fistula output was low and her low fiber diet was continued. Patient's course notable for hypertension, which is now controlled with reduction of NSAIDS and titration of antihypertensives. 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 Cervantes and sridevi. Nurse coordinator Andrei working on Onc Follow up/Appt Disposition as per primary team Fistula healed per surgeon CT abd/Pelvis noted cystitis, postsurgical changes. No obstruction. Foci of induration in RLQ mesentery likley fat necrosis With freq and dysuria, get UA/Ucx Levofloxacin for now Hypertension Avoid NSAIDs as able Given electrolyte abnormalities, HCTZ had been discontinued Continue lisinopril 20 mg daily, amlodipine 2.5 mg daily BP stable on current regimen Monitor BP Severe protein calorie malnutrition In the setting of malignancy, 67 kilos in 01/2023, now 50kilos 19 BMI Continue nutritional supplements Renal Cyst per primary team DVT Px: per primary team. Refused Lovenox Ambulate FULL CODE I spent a total of 35 minutes coordinating, documenting and providing care for this patient excluding time spent in performance of separately billed services Admission and Anticipated Discharge Date Admission Date: May 06, 2023 Subjective Patient seen and examined. Reports low abd pain Reports dysuria and freq overnight Physical Exam Constitutional: + well hydrated; no acute distress Eyes: PERRL, conjunctivae normal, anicteric sclerae ENMT: external ear and nose normal, oropharynx normal Respiratory: normal respiratory effort, lungs clear to auscultation Cardiovascular: S1 S2 Gastrointestinal (Abdomen): Soft, mild low abd pain, normal bowel sounds, wound vac in situ Neurologic: PERRL, EOMI, accommodation nl, no face palsy, no dysarthria Psychiatric: A+Ox3, euthymic affect Results & Data Results & Data Vital Signs (Past 12 Hours) Vital Signs Temp Pulse Resp BP Pulse Ox O2 Del Method 06/20/23 07:24 36.2 C L 63 16 128/74 98 Room Air Laboratory Results Abnormal lab results 06/20/23 Range/Units 06:39 Creatinine 0.52 L (0.6-1.2) mg/dl BUN/Creatinine Ratio 38.5 H (10-20) Glucose 100 H (70-99(Fasting)) mg/dl (3) Hypertension Hypertension type: primary hypertension Qualified Code(s): I10 - Essential (primary) hypertension (4) Anemia Anemia type: unspecified type Qualified Code(s): D64.9 - Anemia, unspecified
[2023-06-20] MEDS: levoFLOXacin 750 MG TAB PO SCH (15:43)
[2023-06-20 15:55] LABS: Appearance Urine Cloudy (Clear); Bacteria Urine Automated None Seen (None Seen); Bilirubin Urine Negative (Negative); Blood Urine 1+ (Negative); Cast Urine Automated 0-2 /lpf (0-2); Color Urine Yellow; Epithelial Cell Urine Auto 0-2 /hpf (0-2); Glucose Urine UA Negative (Negative); Ketones Urine Negative (Negative); Leukocyte Esterase Urine 3+ (Negative); Nitrite Urine Negative (Negative); Protein Urine Negative (Negative); RBC Urine Automated 0-2 /hpf (0-2); Specific Gravity Urine 1.021 (1.000-1.030); Urobilinogen Urine Negative (Negative); WBC Urine Automated >50 /hpf (0-5); pH Urine 6.5 (4.5-7.5)
[2023-06-21 08:23] LABS: Hematocrit (blood only) 32.3 % (37.0-47.0); Hemoglobin 10.3 g/dl (12.0-16.0); Mean Corpuscular Hemoglobin 24.1 pg (25.0-34.0); Mean Corpuscular Hgb Conc 31.9 g/dL (32.0-36.0); Mean Corpuscular Volume 75.5 fL (80.0-100.0); Mean Platelet Volume 10.2 fL (9.4-12.4); Platelet Count 330 K/uL (130-400); RDW Coefficient of Variation 26.2 % (11.5-14.5); RDW Standard Deviation 68.6 fL (36.4-46.3); Red Blood Count 4.28 M/uL (4.20-5.40); White Blood Count 8.88 K/ul (4.8-10.8)
[2023-06-21 08:58] LABS: BUN Creatinine Ratio 33.3 (10-20); Calcium 9.4 mg/dl (8.6-10.3); Creatinine Clr Calc Pharmacy 62.6 ml/min; Est GFR (African American) 101.1 ml/min; Est GFR (Non-African American) 87.3 ml/min; Potassium 4.1 mmol/L (3.5-5.1)
[2023-06-21] MEDS ORDERED: levoFLOXacin 750 MG TAB PO SCH (11:00)
--- NOTE | 2023-06-21 12:11 | Surgery Progress Note ---
Date of Service June 21, 2023 Assessment & Plan (1) Cecum cancer: Plan: wound vac in place placement early next week (2) Cystitis: Plan: po levaquin Admission and Anticipated Discharge Date Admission Date: May 06, 2023 Subjective appreciate urology consult po levaquin pain a little better Review of Systems Constitutional: no fever and no chills Respiratory: no cough and no dyspnea Cardiovascular: no chest pain Gastrointestinal: + abdominal pain; no nausea, no vomiting and no change in b owel habits Physical Exam Respiratory: normal respiratory effort, lungs clear to auscultation Cardiovascular: RRR, no murmur, no edema Gastrointestinal (Abdomen): Percussion/Palpation: + abdomen tender and abdomen soft; no guarding and abdomen not rigid wound vac in place Results & Data Vital Signs (Past 12 Hours) Vital Signs Temp Pulse Resp BP Pulse Ox O2 Del Method 06/21/23 07:20 36.6 C 59 L 16 128/73 97 Room Air
--- NOTE | 2023-06-21 13:47 | Hospitalist Progress Note ---
Date of Service June 21, 2023 Assessment & Plan (1) Cecum cancer: (2) Post-operative state: (3) Hypertension: (4) Anemia: (5) Renal cyst: Plan 83 year old woman who is s/p elective open right colon resection at [facility] on 05/06/23 for an ill-defined masslike enlargement of the cecum and terminal ileum concerning for colonic carcinoma with metastatic disease to regional lymph nodes. 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 She was transfused 3 units of pRBCs for post operative anemia. Intravenous toradol and tylenol were used for pain control. A diet of clears was started on 05/07. On 05/09 purulent drainage was noted from her drain and she had some nausea and mild distension of her abdomen. she went back to ice chips/sips and IV Zosyn was started. Perioperative clindamycin was administered (05/05-05/08). Over the next few days her diet was advanced again and her abx were continued through 05/19. 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 A repeat CT a/p was performed. The fistula output was low and her low fiber diet was continued. Patient's course notable for hypertension, which is now controlled with reduction of NSAIDS and titration of antihypertensives. 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 Cervantes and sridevi. Nurse coordinator Andrei working on Onc Follow up/Appt Disposition as per primary team Fistula healed per surgeon CT abd/Pelvis noted cystitis, postsurgical changes. No obstruction. Foci of induration in RLQ mesentery likley fat necrosis With freq and dysuria Preliminary UCx growing Grp B strep, GNR Will follow up speciation/sensitivities Levofloxacin for now Hypertension Avoid NSAIDs as able Given electrolyte abnormalities, HCTZ had been discontinued Continue lisinopril 20 mg daily, amlodipine 2.5 mg daily BP stable on current regimen Monitor BP Severe protein calorie malnutrition In the setting of malignancy, 67 kilos in 01/2023, now 50kilos 19 BMI Continue nutritional supplements Renal Cyst per primary team DVT Px: per primary team. Refused Lovenox Ambulate FULL CODE I spent a total of 35 minutes coordinating, documenting and providing care for this patient excluding time spent in performance of separately billed services Admission and Anticipated Discharge Date Admission Date: May 06, 2023 Subjective Patient seen and examined. Reports low abd pain was better controlled until wound vac was recently changed Reports dysuria mildly improved Denied any other complaints Physical Exam Constitutional: + well hydrated; no acute distress Eyes: PERRL, conjunctivae normal, anicteric sclerae ENMT: external ear and nose normal, oropharynx normal Respiratory: normal respiratory effort, lungs clear to auscultation Cardiovascular: S1 S2 Gastrointestinal (Abdomen): Soft, +abd tenderness, normal bowel sounds, wound vac in place Musculoskeletal: No pedal edema Neurologic: PERRL, EOMI, accommodation nl, no face palsy, no dysarthria Psychiatric: A+Ox3, euthymic affect Results & Data Results & Data Vital Signs (Past 12 Hours) Vital Signs Temp Pulse Resp BP Pulse Ox O2 Del Method 06/21/23 07:20 36.6 C 59 L 16 128/73 97 Room Air Laboratory Results Abnormal lab results 06/21/23 Range/Units 07:45 Hgb 10.3 L (12.0-16.0) g/dl Hct 32.3 L (37.0-47.0) % MCV 75.5 L (80.0-100.0) fL MCH 24.1 L (25.0-34.0) pg MCHC 31.9 L (32.0-36.0) g/dL RDW Std Deviation 68.6 H (36.4-46.3) fL RDW Coeff of Brad 26.2 H (11.5-14.5) % Creatinine 0.54 L (0.6-1.2) mg/dl BUN/Creatinine Ratio 33.3 H (10-20) (3) Hypertension Hypertension type: primary hypertension Qualified Code(s): I10 - Essential (primary) hypertension (4) Anemia Anemia type: unspecified type Qualified Code(s): D64.9 - Anemia, unspecified
--- NOTE | 2023-06-22 09:50 | Surgery Progress Note ---
Date of Service June 22, 2023 Assessment & Plan (1) Cecum cancer: Plan: Gladys is s/p Open Right Colon Resection with Dr. Khoury. She is stable, with no new issues or concerns overnight. Wound vac in place and holding suction. Patient seen and examined with Dr. Zambrano. (2) Cystitis: Plan: po levaquin Admission and Anticipated Discharge Date Admission Date: May 06, 2023 Supervising Physician Co-Signing Physician Notes Stable for discharge from surgical standpoint Awaiting placement Continue wound vac Subjective Gladys is sitting in bed- reports that she is doing ok. She is tolerating a regular diet. Wound vac in place, holding suction. Review of Systems Constitutional: as per Subjective / HPI; no fever and no chills Physical Exam Respiratory: normal respiratory effort, lungs clear to auscultation Cardiovascular: RRR, no murmur, no edema Gastrointestinal (Abdomen): Percussion/Palpation: + abdomen tender and abdomen soft; no guarding and abdomen not rigid wound vac in place- holding suction well. Results & Data Vital Signs (Past 12 Hours) Vital Signs Temp Pulse Resp BP Pulse Ox O2 Del Method 06/22/23 07:50 37.2 C 53 L 16 110/70 98 Room Air PG Care Time/CCT Total # of Minutes Spent Total Time Spent with Patient: Total time spent is greater than 50% in coordination of care (as documented) at patient's floor/unit and/or counseling patient: Coding Level of Care Code 82792 Post Operative Follow-Up Diagnoses Cecum cancer C18.0 Cystitis N30.90
--- NOTE | 2023-06-22 13:07 | Hospitalist Progress Note ---
Date of Service June 22, 2023 Assessment & Plan (1) Cecum cancer: (2) Post-operative state: (3) Hypertension: (4) Anemia: (5) Renal cyst: Plan 83 year old woman who is s/p elective open right colon resection at [facility] on 05/06/23 for an ill-defined masslike enlargement of the cecum and terminal ileum concerning for colonic carcinoma with metastatic disease to regional lymph nodes. 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 She was transfused 3 units of pRBCs for post operative anemia. Intravenous toradol and tylenol were used for pain control. A diet of clears was started on 05/07. On 05/09 purulent drainage was noted from her drain and she had some nausea and mild distension of her abdomen. she went back to ice chips/sips and IV Zosyn was started. Perioperative clindamycin was administered (05/05-05/08). Over the next few days her diet was advanced again and her abx were continued through 05/19. 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 A repeat CT a/p was performed. The fistula output was low and her low fiber diet was continued. Patient's course notable for hypertension, which is now controlled with reduction of NSAIDS and titration of antihypertensives. 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 Cervantes and sridevi. Nurse coordinator Andrei working on Onc Follow up/Appt Disposition as per primary team Fistula healed per surgeon CT abd/Pelvis noted cystitis, postsurgical changes. No obstruction. Foci of induration in RLQ mesentery likley fat necrosis Has urinary tract infection With freq and dysuria Preliminary UCx growing Grp B strep and pansensitive E coli Continue levofloxacin to complete treatment Hypertension Avoid NSAIDs as able Given electrolyte abnormalities, HCTZ had been discontinued Continue lisinopril 20 mg daily, amlodipine 2.5 mg daily BP stable on current regimen Monitor BP Severe protein calorie malnutrition In the setting of malignancy, 67 kilos in 01/2023, now 50kilos 19 BMI Continue nutritional supplements Renal Cyst per primary team DVT Px: per primary team. Ambulate FULL CODE I spent a total of 35 minutes coordinating, documenting and providing care for this patient excluding time spent in performance of separately billed services Admission and Anticipated Discharge Date Admission Date: May 06, 2023 Subjective Patient seen and examined. Reports low abd pain Reports dysuria improving Denied any other complaints Physical Exam Constitutional: + well hydrated; no acute distress Eyes: PERRL, conjunctivae normal, anicteric sclerae ENMT: external ear and nose normal, oropharynx normal Respiratory: normal respiratory effort, lungs clear to auscultation Cardiovascular: S1 S2 Gastrointestinal (Abdomen): Soft, +tender, normal bowel sounds, wound vac inplace Musculoskeletal: No pedal edema Neurologic: PERRL, EOMI, accommodation nl, no face palsy, no dysarthria Psychiatric: A+Ox3, euthymic affect Results & Data Results & Data Vital Signs (Past 12 Hours) Vital Signs Temp Pulse Resp BP Pulse Ox O2 Del Method 06/22/23 07:50 37.2 C 53 L 16 110/70 98 Room Air (3) Hypertension Hypertension type: primary hypertension Qualified Code(s): I10 - Essential (primary) hypertension (4) Anemia Anemia type: unspecified type Qualified Code(s): D64.9 - Anemia, unspecified
--- NOTE | 2023-06-23 08:49 | Surgery Progress Note ---
Date of Service June 23, 2023 Assessment & Plan (1) Cecum cancer: Plan: Gladys is s/p Open Right Colon Resection with Dr. Khoury. She is stable, with no new issues or concerns overnight. Wound vac in place and holding suction. Dr. Khoury to resume care tomorrow morning. Admission and Anticipated Discharge Date Admission Date: May 06, 2023 Subjective Vital signs stable overnight. Wound vac in place. Results & Data Vital Signs (Past 12 Hours) Vital Signs Temp Pulse Resp BP BP Pulse Ox O2 Del Method 06/23/23 08:14 36.5 C 64 16 138/72 97 Room Air 06/22/23 21:46 36.2 C L 59 L 18 103/67 97 Room Air 06/22/23 21:45 Room Air PG Care Time/CCT Total # of Minutes Spent Total Time Spent with Patient: Total time spent is greater than 50% in coordination of care (as documented) at patient's floor/unit and/or counseling patient: Coding Level of Care Code 34303 Post Operative Follow-Up Diagnoses Cecum cancer C18.0
--- NOTE | 2023-06-23 13:24 | Hospitalist Progress Note ---
Date of Service June 23, 2023 Assessment & Plan (1) Cecum cancer: (2) Post-operative state: (3) Hypertension: (4) Anemia: (5) Renal cyst: Plan 83 year old woman who is s/p elective open right colon resection at [facility] on 05/06/23 for an ill-defined masslike enlargement of the cecum and terminal ileum concerning for colonic carcinoma with metastatic disease to regional lymph nodes. 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 She was transfused 3 units of pRBCs for post operative anemia. Intravenous toradol and tylenol were used for pain control. A diet of clears was started on 05/07. On 05/09 purulent drainage was noted from her drain and she had some nausea and mild distension of her abdomen. she went back to ice chips/sips and IV Zosyn was started. Perioperative clindamycin was administered (05/05-05/08). Over the next few days her diet was advanced again and her abx were continued through 05/19. 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 A repeat CT a/p was performed. The fistula output was low and her low fiber diet was continued. Patient's course notable for hypertension, which is now controlled with reduction of NSAIDS and titration of antihypertensives. 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 Cervantes and sridevi. Nurse coordinator Andrei working on Onc Follow up/Appt Disposition as per primary team Fistula healed per surgeon CT abd/Pelvis noted cystitis, postsurgical changes. No obstruction. Foci of induration in RLQ mesentery likley fat necrosis Has urinary tract infection With freq and dysuria UCx growing Grp B strep and pansensitive E coli Continue levofloxacin to complete treatment Hypertension Avoid NSAIDs as able Given electrolyte abnormalities, HCTZ had been discontinued Continue lisinopril 20 mg daily, amlodipine 2.5 mg daily BP stable on current regimen Monitor BP Severe protein calorie malnutrition In the setting of malignancy, 67 kilos in 01/2023, now 50kilos 19 BMI Continue nutritional supplements Renal Cyst per primary team DVT Px: per primary team. Ambulate FULL CODE I spent a total of 25 minutes coordinating, documenting and providing care for this patient excluding time spent in performance of separately billed services Admission and Anticipated Discharge Date Admission Date: May 06, 2023 Subjective Patient seen and examined. Still has low abd pain No dysuria so far today Denied any other complaints Physical Exam Constitutional: + well hydrated; no acute distress Eyes: PERRL, conjunctivae normal, anicteric sclerae ENMT: external ear and nose normal, oropharynx normal Respiratory: normal respiratory effort, lungs clear to auscultation Cardiovascular: S1 S2 Gastrointestinal (Abdomen): Soft, +tender, normal bowel sounds, wound vac inplace Neurologic: PERRL, EOMI, accommodation nl, no face palsy, no dysarthria Psychiatric: A+Ox3, euthymic affect Results & Data Results & Data Vital Signs (Past 12 Hours) Vital Signs Temp Pulse Resp BP Pulse Ox O2 Del Method 06/23/23 08:14 36.5 C 64 16 138/72 97 Room Air (3) Hypertension Hypertension type: primary hypertension Qualified Code(s): I10 - Essential (primary) hypertension (4) Anemia Anemia type: unspecified type Qualified Code(s): D64.9 - Anemia, unspecified
--- NOTE | 2023-06-24 09:15 | Surgery Progress Note ---
Date of Service June 24, 2023 Assessment & Plan (1) Cecum cancer: Plan: wound vac in [facility] working on discharge options (2) Cystitis: Plan: levaquin e coli and strep UTI Admission and Anticipated Discharge Date Admission Date: May 06, 2023 Subjective abdominal pain better Review of Systems Constitutional: no fever and no chills Respiratory: no dyspnea Cardiovascular: no chest pain Gastrointestinal: + abdominal pain; no nausea, no vomiting and no change in bowel habits Physical Exam Respiratory: normal respiratory effort, lungs clear to auscultation Cardiovascular: RRR, no murmur, no edema Gastrointestinal (Abdomen): Inspection/Auscultation: abdomen normal to inspection and normal bowel sounds; abdomen not distended Percussion/Palpation: + abdomen tender and abdomen soft; no guarding and abdomen not rigid wound vac Results & Data Vital Signs (Past 12 Hours) Vital Signs Temp Pulse Resp BP Pulse Ox O2 Del Method 06/24/23 07:43 36.5 C 59 L 15 126/75 99 Room Air 06/23/23 22:10 Room Air
--- NOTE | 2023-06-24 12:14 | Hospitalist Progress Note ---
Date of Service June 24, 2023 Assessment & Plan (1) Cecum cancer: (2) Post-operative state: (3) Hypertension: (4) Anemia: (5) Renal cyst: Plan 83 year old woman who is s/p elective open right colon resection at [facility] on 05/06/23 for an ill-defined masslike enlargement of the cecum and terminal ileum concerning for colonic carcinoma with metastatic disease to regional lymph nodes. 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 She was transfused 3 units of pRBCs for post operative anemia. Intravenous toradol and tylenol were used for pain control. A diet of clears was started on 05/07. On 05/09 purulent drainage was noted from her drain and she had some nausea and mild distension of her abdomen. she went back to ice chips/sips and IV Zosyn was started. Perioperative clindamycin was administered (05/05-05/08). Over the next few days her diet was advanced again and her abx were continued through 05/19. 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 A repeat CT a/p was performed. The fistula output was low and her low fiber diet was continued. Patient's course notable for hypertension, which is now controlled with reduction of NSAIDS and titration of antihypertensives. 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 Cervantes and sridevi. Nurse coordinator Andrei working on Onc Follow up/Appt Disposition as per primary team Fistula healed per surgeon CT abd/Pelvis noted cystitis, postsurgical changes. No obstruction. Foci of induration in RLQ mesentery likley fat necrosis Has urinary tract infection With freq and dysuria UCx growing Grp B strep and pansensitive E coli Continue levofloxacin to complete 7 days treatment Hypertension Avoid NSAIDs as able Given electrolyte abnormalities, HCTZ had been discontinued Continue lisinopril 20 mg daily, amlodipine 2.5 mg daily BP stable on current regimen Monitor BP Severe protein calorie malnutrition In the setting of malignancy, 67 kilos in 01/2023, now 50kilos 19 BMI Continue nutritional supplements Renal Cyst per primary team DVT Px: per primary team. Ambulate FULL CODE I spent a total of 25 minutes coordinating, documenting and providing care for this patient excluding time spent in performance of separately billed services Admission and Anticipated Discharge Date Admission Date: May 06, 2023 Subjective Patient seen and examined. Reports mild abd pain No other complaints Physical Exam Constitutional: + well hydrated; no acute distress Eyes: PERRL, conjunctivae normal, anicteric sclerae ENMT: external ear and nose normal, oropharynx normal Respiratory: normal respiratory effort, lungs clear to auscultation Cardiovascular: S1 S2 Gastrointestinal (Abdomen): Soft, +tender, normal bowel sounds, wound vac in place Musculoskeletal: No pedal edema Neurologic: PERRL, EOMI, accommodation nl, no face palsy, no dysarthria Psychiatric: A+Ox3, euthymic affect Results & Data Results & Data Vital Signs (Past 12 Hours) Vital Signs Temp Pulse Resp BP Pulse Ox O2 Del Method 06/24/23 07:43 36.5 C 59 L 15 126/75 99 Room Air (3) Hypertension Hypertension type: primary hypertension Qualified Code(s): I10 - Essential (primary) hypertension (4) Anemia Anemia type: unspecified type Qualified Code(s): D64.9 - Anemia, unspecified
--- NOTE | 2023-06-25 09:44 | Surgery Progress Note ---
Date of Service June 25, 2023 Assessment & Plan (1) Cecum cancer: Plan: hopefully wound vac off by saturday discharge planning (2) Cystitis: Plan: levaquin Admission and Anticipated Discharge Date Admission Date: May 06, 2023 Subjective pain better Review of Systems Constitutional: no fever and no chills Respiratory: no dyspnea Cardiovascular: no chest pain Gastrointestinal: + abdominal pain; no nausea, no vomiting and no change in bowel habits Genitourinary: no dysuria Physical Exam Respiratory: normal respiratory effort, lungs clear to auscultation Cardiovascular: RRR, no murmur, no edema Gastrointestinal (Abdomen): Percussion/Palpation: + abdomen tender and abdomen soft; no guarding and abdomen not rigid wound progressing nicely Results & Data Vital Signs (Past 12 Hours) Vital Signs Temp Pulse Resp BP Pulse Ox O2 Del Method 06/25/23 07:48 36.6 C 72 20 140/80 98 Room Air
--- NOTE | 2023-06-25 15:55 | Hospitalist Progress Note ---
Date of Service June 25, 2023 Assessment & Plan (1) Cecum cancer: (2) Post-operative state: (3) Hypertension: (4) Anemia: (5) Renal cyst: Plan 83 year old woman who is s/p elective open right colon resection at [facility] on 05/06/23 for an ill-defined masslike enlargement of the cecum and terminal ileum concerning for colonic carcinoma with metastatic disease to regional lymph nodes. 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 She was transfused 3 units of pRBCs for post operative anemia. Intravenous toradol and tylenol were used for pain control. A diet of clears was started on 05/07. On 05/09 purulent drainage was noted from her drain and she had some nausea and mild distension of her abdomen. she went back to ice chips/sips and IV Zosyn was started. Perioperative clindamycin was administered (05/05-05/08). Over the next few days her diet was advanced again and her abx were continued through 05/19. 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 A repeat CT a/p was performed. The fistula output was low and her low fiber diet was continued. Patient's course notable for hypertension, which is now controlled with reduction of NSAIDS and titration of antihypertensives. 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 Cervantes and sridevi. Nurse coordinator Andrei working on Onc Follow up/Appt Disposition as per primary team Fistula healed per surgeon CT abd/Pelvis noted cystitis, postsurgical changes. No obstruction. Foci of induration in RLQ mesentery likley fat necrosis Has urinary tract infection With freq and dysuria UCx growing Grp B strep and pansensitive E coli Continue levofloxacin to complete 7 days treatment Hypertension Avoid NSAIDs as able Given electrolyte abnormalities, HCTZ had been discontinued Continue lisinopril 20 mg daily, amlodipine 2.5 mg daily BP stable on current regimen Monitor BP Severe protein calorie malnutrition In the setting of malignancy, 67 kilos in 01/2023, now 50kilos 19 BMI Continue nutritional supplements Renal Cyst per primary team DVT Px: per primary team. Ambulate FULL CODE I spent a total of 20 minutes coordinating, documenting and providing care for this patient excluding time spent in performance of separately billed services Admission and Anticipated Discharge Date Admission Date: May 06, 2023 Subjective Patient seen and examined. Reports mild abd pain No other complaints Physical Exam Constitutional: + well hydrated; no acute distress Eyes: PERRL, conjunctivae normal, anicteric sclerae ENMT: external ear and nose normal, oropharynx normal Respiratory: normal respiratory effort, lungs clear to auscultation Cardiovascular: S1 S2 Gastrointestinal (Abdomen): Mild abd tenderness, wound vac in place, normal bowel sounds Musculoskeletal: no cyanosis or clubbing, extremities motor strength 5/5 Neurologic: PERRL, EOMI, accommodation nl, no face palsy, no dysarthria Psychiatric: A+Ox3, euthymic affect Results & Data Results & Data Vital Signs (Past 12 Hours) Vital Signs Temp Pulse Resp BP Pulse Ox O2 Del Method 06/25/23 15:18 36.5 C 67 16 124/62 98 Room Air 06/25/23 07:48 36.6 C 72 20 140/80 98 Room Air (3) Hypertension Hypertension type: primary hypertension Qualified Code(s): I10 - Essential (primary) hypertension (4) Anemia Anemia type: unspecified type Qualified Code(s): D64.9 - Anemia, unspecified
--- NOTE | 2023-06-26 13:48 | Surgery Progress Note ---
Date of Service June 26, 2023 Assessment & Plan (1) Cecum cancer: Plan: wound vac off hopefully saturday (2) Cystitis: Plan: con't levaquin Admission and Anticipated Discharge Date Admission Date: May 06, 2023 Subjective feeling better Review of Systems Constitutional: no fever and no chills Respiratory: no dyspnea Cardiovascular: no chest pain Gastrointestinal: + abdominal pain; no nausea and no vomit ing Genitourinary: + dysuria Physical Exam Constitutional: + thin Respiratory: normal respiratory effort, lungs clear to auscultation Cardiovascular: RRR, no murmur, no edema Gastrointestinal (Abdomen): Inspection/Auscultation: abdomen normal to inspection and normal bowel sounds; abdomen not distended Percussion/Palpation: + abdomen tender and abdomen soft; no guarding and abdomen not rigid Results & Data Vital Signs (Past 12 Hours) Vital Signs Temp Pulse Resp BP Pulse Ox O2 Del Method 06/26/23 07:28 36.5 C 56 L 17 134/61 98 Room Air
--- NOTE | 2023-06-26 17:41 | Hospitalist Progress Note ---
Date of Service June 26, 2023 Assessment & Plan (1) Cecum cancer: (2) Post-operative state: (3) Hypertension: (4) Anemia: (5) Renal cyst: Plan 83 year old woman who is s/p elective open right colon resection at [facility] on 05/06/23 for an ill-defined masslike enlargement of the cecum and terminal ileum concerning for colonic carcinoma with metastatic disease to regional lymph nodes. 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 She was transfused 3 units of pRBCs for post operative anemia. Intravenous toradol and tylenol were used for pain control. A diet of clears was started on 05/07. On 05/09 purulent drainage was noted from her drain and she had some nausea and mild distension of her abdomen. she went back to ice chips/sips and IV Zosyn was started. Perioperative clindamycin was administered (05/05-05/08). Over the next few days her diet was advanced again and her abx were continued through 05/19. 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 A repeat CT a/p was performed. The fistula output was low and her low fiber diet was continued. 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 No obstruction. Foci of induration in RLQ mesentery likley fat necrosis Urine Cx growing Grp B strep and pansensitive E coli Will complete 7-day course of levofloxacin today Hypertension Avoid NSAIDs as able Given electrolyte abnormalities, HCTZ had been discontinued Continue lisinopril 20 mg daily, amlodipine 2.5 mg daily BP stable Severe protein calorie malnutrition In the setting of malignancy, 67 kilos in 01/2023, now 50kilos 19 BMI Continue nutritional supplements Renal Cyst Follow-up as outpatient DVT Px: per primary team. Ambulate CODE STATUS FULL CODE Admission and Anticipated Discharge Date Admission Date: May 06, 2023 Subjective Patient is seen and examined at bedside Dysuria improving Plan for wound VAC change today Offers no other complaints Denies any chest pain, dyspnea, nausea, vomiting Review of Systems Review of Systems: All systems reviewed & are unremarkable except as noted in Subjective Physical Exam Physical Exam: Physical Exam: Vitals signs as noted above General Appearance:Moderately built and nourished, no apparent distress Head: normocephalic, Atraumatic Eyes: normal inspection, EOMI Neck: supple, Trachea midline Respiratory/Chest: Normal breath sounds, CTA, No accessory muscle use Cardiovascular: S1, S2, No murmur Abdomen/GI:Soft, Non tender, Bowel sounds present, +Wound Vac Extremities/Musculoskeletal:normal inspection, no edema Neurologic/Psych:AAOX3, grossly no focal neurological deficits Skin: normal color, warm Results & Data Results & Data Vital Signs (Past 12 Hours) Vital Signs Temp Pulse Resp BP Pulse Ox O2 Del Method 06/26/23 16:24 Room Air 06/26/23 15:39 36.5 C 69 18 122/64 98 Room Air 06/26/23 07:28 36.5 C 56 L 17 134/61 98 Room Air (3) Hypertension Hypertension type: primary hypertension Qualified Code(s): I10 - Essential (primary) hypertension (4) Anemia Anemia type: unspecified type Qualified Code(s): D64.9 - Anemia, unspecified
[2023-06-27] MEDS: levoFLOXacin 500 MG TAB PO SCH (12:32)
--- NOTE | 2023-06-27 13:31 | Surgery Progress Note ---
Date of Service June 27, 2023 Assessment & Plan (1) Cecum cancer: Plan: wound vac off soon (2) Cystitis: Plan: levaquin Admission and Anticipated Discharge Date Admission Date: May 06, 2023 Subjective some abdominal disconfort Review of Systems Constitutional: no fever and no chills Respiratory: no dyspnea Cardiovascular: no chest pain Gastrointestinal: + abdominal pain; no nausea, no vomiting and no change in bowel habits Genitourinary: + dysuria Physical Exam Constitutional: + thin Respiratory: normal respiratory effort, lungs clear to auscultation Cardiovascular: RRR, no murmur, no edema Gastrointestinal (Abdomen): Inspection/Auscultation: abdomen normal to inspe ction and normal bowel sounds; abdomen not distended Percussion/Palpation: + abdomen tender and abdomen soft; no guarding and abdomen not rigid wound granualting well Results & Data Vital Signs (Past 12 Hours) Vital Signs Temp Pulse Resp BP Pulse Ox O2 Del Method 06/27/23 08:20 64 145/77 H 06/27/23 07:57 36.4 C L 64 16 136/77 97 Room Air 06/27/23 07:50 Room Air
--- NOTE | 2023-06-27 16:25 | Hospitalist Progress Note ---
Date of Service June 27, 2023 Assessment & Plan (1) Cecum cancer: (2) Post-operative state: (3) Hypertension: (4) Anemia: (5) Renal cyst: Plan 83 year old woman who is s/p elective open right colon resection at [facility] on 05/06/23 for an ill-defined masslike enlargement of the cecum and terminal ileum concerning for colonic carcinoma with metastatic disease to regional lymph nodes. 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 She was transfused 3 units of pRBCs for post operative anemia. Intravenous toradol and tylenol were used for pain control. A diet of clears was started on 05/07. On 05/09 purulent drainage was noted from her drain and she had some nausea and mild distension of her abdomen. she went back to ice chips/sips and IV Zosyn was started. Perioperative clindamycin was administered (05/05-05/08). Over the next few days her diet was advanced again and her abx were continued through 05/19. 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 A repeat CT a/p was performed. The fistula output was low and her low fiber diet was continued. 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 No obstruction. Foci of induration in RLQ mesentery likely fat necrosis Urine Cx growing Grp B strep and pansensitive E coli Given persistent dysuria, will complete 10-day course of antibiotic Hypertension Avoid NSAIDs as able Given electrolyte abnormalities, HCTZ had been discontinued Continue lisinopril 20 mg daily, amlodipine 2.5 mg daily BP stable Severe protein calorie malnutrition In the setting of malignancy, 67 kilos in 01/2023, now 50kilos 19 BMI Continue nutritional supplements Renal Cyst Follow-up as outpatient DVT Px: per primary team. Ambulate CODE STATUS FULL CODE Admission and Anticipated Discharge Date Admission Date: May 06, 2023 Subjective Patient is seen and examined at bedside Reports persistent dysuria today Denies any hematuria Abdominal pain and wound VAC is controlled Denies any chest pain, dyspnea, nausea, vomiting Review of Systems Review of Systems: All systems reviewed & are unremarkable except as noted in Subjective Physical Exam Physical Exam: Physical Exam: Vitals signs as noted above General Appearance:Moderately built and nourished, no apparent distress Head: normocephalic, Atraumatic Eyes: normal inspection, EOMI Neck: supple, Trachea midline Respiratory/Chest: Normal breath sounds, CTA, No accessory muscle use Cardiovascular: S1, S2, No murmur Abdomen/GI:Soft, Non tender, Bowel sounds present, +Wound Vac Extremities/Musculoskeletal:normal inspection, no edema Neurologic/Psych:AAOX3, grossly no focal neurological deficits Skin: normal color, warm Results & Data Results & Data Vital Signs (Past 12 Hours) Vital Signs Temp Pulse Resp BP Pulse Ox O2 Del Method 06/27/23 15:14 36.6 C 72 18 98/64 L 96 Room Air 06/27/23 08:20 64 145/77 H 06/27/23 07:57 36.4 C L 64 16 136/77 97 Room Air 06/27/23 07:50 Room Air (3) Hypertension Hypertension type: primary hypertension Qualified Code(s): I10 - Essential (primary) hypertension (4) Anemia Anemia type: unspecified type Qualified Code(s): D64.9 - Anemia, unspecified
[2023-06-28] MEDS ORDERED: amLODIPine BESYLATE 5 MG TAB PO SCH (09:00)
[2023-06-28] MEDS: amLODIPine BESYLATE 5 MG TAB PO SCH (10:16)
--- NOTE | 2023-06-28 11:59 | Surgery Progress Note ---
Date of Service June 28, 2023 Assessment & Plan (1) Cecum cancer: Plan: s/p ex lap , right hemicolectomy on 05/06/2023 avss abdominal pain mid abdomen at at midline incision, off and on, controlled tolerating diet + bowel function (2) Cystitis: Plan: continue Levaquin for 10 days total as per medicine, ends tomorrow 06/28 will determine discharge medications for her blood pressure with hospitalist team Plan Plan for discharge tomorrow or Saturday with home health care services (nursing/PT/OT) will need oncology referral pcp follow-up in [address] Khoury who agrees with above. Admission and Anticipated Discharge Date Admission Date: May 06, 2023 Subjective abdominal pain off and on, good and bad days burning on urination is improving tolerating diet having bowel movements no n,v Physical Exam Constitutional: WD/WN, vitals as above + frail appearing, cooperative and comfortable; no acute distress and not ill appearing Gastrointestinal (Abdomen): Inspection/Auscultation: abdomen normal to inspection; abdomen not distended Percussion/Palpation: + abdomen tender (mild at midline incision) and abdomen soft; no guarding, abdomen not rigid and abdomen not firm Open wound of inferior aspect of incision with healthy granulation tissue present, no necrosis Skin: no rashes, warm and dry Results & Data Vital Signs (Past 12 Hours) Vital Signs Temp Pulse Resp BP Pulse Ox O2 Del Method 06/28/23 07:00 36.4 C L 60 20 132/62 97 Room Air
--- NOTE | 2023-06-28 16:38 | Hospitalist Progress Note ---
Date of Service June 28, 2023 Assessment & Plan (1) Cecum cancer: (2) Post-operative state: (3) Hypertension: (4) Anemia: (5) Renal cyst: Plan 83 year old woman who is s/p elective open right colon resection at [facility] on 05/06/23 for an ill-defined masslike enlargement of the cecum and terminal ileum concerning for colonic carcinoma with metastatic disease to regional lymph nodes. 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 She was transfused 3 units of pRBCs for post operative anemia. Intravenous toradol and tylenol were used for pain control. A diet of clears was started on 05/07. On 05/09 purulent drainage was noted from her drain and she had some nausea and mild distension of her abdomen. she went back to ice chips/sips and IV Zosyn was started. Perioperative clindamycin was administered (05/05-05/08). Over the next few days her diet was advanced again and her abx were continued through 05/19. 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 A repeat CT a/p was performed. The fistula output was low and her low fiber diet was continued. 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 No obstruction. Foci of induration in RLQ mesentery likely fat necrosis Urine Cx growing Grp B strep and pansensitive E coli Continue Levaquin to complete the course Hypertension Avoid NSAIDs as able Given electrolyte abnormalities, HCTZ had been discontinued Continue lisinopril 20 mg daily, amlodipine 2.5 mg daily BP stable Severe protein calorie malnutrition In the setting of malignancy, 67 kilos in 01/2023, now 50kilos 19 BMI Continue nutritional supplements Renal Cyst Follow-up as outpatient DVT Px: per primary team. Ambulate CODE STATUS FULL CODE Admission and Anticipated Discharge Date Admission Date: May 06, 2023 Subjective Patient is seen and examined at bedside Dysuria much improved Reports abdominal pressure /pain at the site of the wound with activity No other new complaints Blood pressure stable Denies any chest pain, dyspnea, nausea, vomiting Review of Systems Review of Systems: All systems reviewed & are unremarkable except as noted in Subjective Physical Exam Physical Exam: Physical Exam: Vitals signs as noted above General Appearance:Moderately built and nourished, no apparent distress Head: normocephalic, Atraumatic Eyes: normal inspection, EOMI Neck: supple, Trachea midline Respiratory/Chest: Normal breath sounds, CTA, No accessory muscle use Cardiovascular: S1, S2, No murmur Abdomen/GI:Soft, Non tender, Bowel sounds present Extremities/Musculoskeletal:normal inspection, no edema Neurologic/Psych:AAOX3, grossly no focal neurological deficits Skin: normal color, warm Results & Data Results & Data Vital Signs (Past 12 Hours) Vital Signs Temp Pulse Pulse Resp BP Pulse Ox O2 Del Method 06/28/23 14:37 36.5 C 77 16 115/67 97 Room Air 06/28/23 12:02 36.6 C 68 16 120/60 96 Room Air 06/28/23 07:00 36.4 C L 60 20 132/62 97 Room Air (3) Hypertension Hypertension type: primary hypertension Qualified Code(s): I10 - Essential (primary) hypertension (4) Anemia Anemia type: unspecified type Qualified Code(s): D64.9 - Anemia, unspecified
--- NOTE | 2023-06-28 21:52 | Communication Note ---
Date of Service: June 28, 2023 Patient SBP 90s. Asymptomatic as per RN. AP Hypotension IVF Hold lisinopril for now Continue low-dose amlodipine with hold parameters
[2023-06-28] MEDS: LACTATED RINGER'S 1,000 ML IV ONE (22:25)
[2023-06-28 22:39] LABS: Basophils # (auto) 0.02 K/uL (0.00-0.20); Basophils % (auto) 0.3 %; Eosinophils # (auto) 0.24 K/uL (0.00-0.50); Eosinophils % (auto) 3.1 %; Hematocrit (blood only) 26.9 % (37.0-47.0); Hemoglobin 8.7 g/dl (12.0-16.0); Immature Granulocytes # (auto) 0.03 K/uL (0.01-0.20); Immature Granulocytes % (auto) 0.4 %; Lymphocytes # (auto) 2.48 K/uL (1.20-3.40); Lymphocytes % (auto) 31.6 %; Mean Corpuscular Hemoglobin 24.5 pg (25.0-34.0); Mean Corpuscular Hgb Conc 32.3 g/dL (32.0-36.0); Mean Corpuscular Volume 75.8 fL (80.0-100.0); Mean Platelet Volume 9.9 fL (9.4-12.4); Monocytes # (auto) 0.72 K/uL (0.11-0.59); Monocytes % (auto) 9.2 %; Neutrophils # (auto) 4.37 K/uL (1.40-6.50); Neutrophils % (auto) 55.4 %; Platelet Count 252 K/uL (130-400); RDW Coefficient of Variation 27.3 % (11.5-14.5); RDW Standard Deviation 72.8 fL (36.4-46.3); Red Blood Count 3.55 M/uL (4.20-5.40); White Blood Count 7.86 K/ul (4.8-10.8)
[2023-06-28 22:54] LABS: BUN Creatinine Ratio 34.5 (10-20); Calcium 8.4 mg/dl (8.6-10.3); Creatinine Clr Calc Pharmacy 58.2 ml/min; Est GFR (African American) 98.8 ml/min; Est GFR (Non-African American) 85.2 ml/min; Potassium 3.9 mmol/L (3.5-5.1)
[2023-06-28 23:00] LABS: Anisocytosis Present
--- NOTE | 2023-06-29 09:43 | Surgery Progress Note ---
Date of Service June 29, 2023 Assessment & Plan (1) Cystitis: Plan: levaquin off soon (2) Cecum cancer: Plan: dresiing [facility] plan for home with home health on saturday if goes well Admission and Anticipated Discharge Date Admission Date: May 06, 2023 Subjective pain about same wound vac off episode of hypotension yesterday Review of Systems Constitutional: no fever and no chills Respiratory: no dyspnea Cardiovascular: no chest pain Gastrointestinal: + abdominal pain; no nausea, no vomiting and no change in bowel habits Genitourinary: no dysuria Physical Exam Constitutional: + thin Respiratory: normal respiratory effort, lungs clear to auscultation Cardiovascular: RRR, no murmur, no edema Gastrointestinal (Abdomen): Inspection/Auscultation: abdomen normal to inspection and normal bowel sounds; abdomen not distended Percussion/Palpation: + abdomen tender and abdomen soft; no guarding and abdomen not rigid small open wound granulating well Psychiatric: Orientation: alert Results & Data Vital Signs (Past 12 Hours) Vital Signs Temp Pulse Resp BP Pulse Ox O2 Del Method 06/29/23 07:31 36.7 C 66 16 117/77 96 Room Air 06/28/23 21:41 98/59 L
--- NOTE | 2023-06-29 16:21 | Hospitalist Progress Note ---
Date of Service June 29, 2023 Assessment & Plan (1) Cecum cancer: (2) Post-operative state: (3) Hypertension: (4) Anemia: (5) Renal cyst: Plan 83 year old woman who is s/p elective open right colon resection at [facility] on 05/06/23 for an ill-defined masslike enlargement of the cecum and terminal ileum concerning for colonic carcinoma with metastatic disease to regional lymph nodes. 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 She was transfused 3 units of pRBCs for post operative anemia. Intravenous toradol and tylenol were used for pain control. A diet of clears was started on 05/07. On 05/09 purulent drainage was noted from her drain and she had some nausea and mild distension of her abdomen. she went back to ice chips/sips and IV Zosyn was started. Perioperative clindamycin was administered (05/05-05/08). Over the next few days her diet was advanced again and her abx were continued through 05/19. 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 A repeat CT a/p was performed. The fistula output was low and her low fiber diet was continued. 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 No obstruction. Foci of induration in RLQ mesentery likely fat necrosis Urine Cx growing Grp B strep and pansensitive E coli Completed Levaquin course Hypertension Avoid NSAIDs as able BP Variable Given electrolyte abnormalities, HCTZ had been discontinued Continue amlodipine 2.5 mg daily (reduced from home dose 10mg) Hold lisinopril for now given hypotensive episode overnight Monitor BP Severe protein calorie malnutrition In the setting of malignancy, 67 kilos in 01/2023, now 50kilos 19 BMI Continue nutritional supplements Renal Cyst Follow-up as outpatient DVT Px: per primary team. Ambulate CODE STATUS FULL CODE Admission and Anticipated Discharge Date Admission Date: May 06, 2023 Subjective Patient is seen and examined at bedside Was hypotensive overnight requiring IV fluids Blood pressure stable today Patient offers no new complaints today Reports having some abdominal discomfort at site of the wound Denies any chest pain, dyspnea, nausea, vomiting Review of Systems Review of Systems: All systems reviewed & are unremarkable except as noted in Subjective Physical Exam Physical Exam: Physical Exam: Vitals signs as noted above General Appearance:Moderately built and nourished, no apparent distress Head: normocephalic, Atraumatic Eyes: normal inspection, EOMI Neck: supple, Trachea midline Respiratory/Chest: Normal breath sounds, CTA, No accessory muscle use Cardiovascular: S1, S2, No murmur Abdomen/GI:Soft, Non tender, Bowel sounds present Extremities/Musculoskeletal:normal inspection, no edema Neurologic/Psych:AAOX3, grossly no focal neurological deficits Skin: normal color, warm Results & Data Results & Data Vital Signs (Past 12 Hours) Vital Signs Temp Pulse Resp BP Pulse Ox O2 Del Method 06/29/23 14:18 36.7 C 77 16 134/74 97 Room Air 06/29/23 07:31 36.7 C 66 16 117/77 96 Room Air Laboratory Results Short CBC 06/28/23 Range/Units 22:21 WBC 7.86 (4.8-10.8) K/ul Hgb 8.7 L (12.0-16.0) g/dl Hct 26.9 L (37.0-47.0) % Plt Count 252 (130-400) K/uL BMP 06/28/23 22:21 Sodium 138 Potassium 3.9 Chloride 108 H Carbon Dioxide 25 BUN 20 Creatinine 0.58 L Glucose 124 H Calcium 8.4 L (3) Hypertension Hypertension type: primary hypertension Qualified Code(s): I10 - Essential (primary) hypertension (4) Anemia Anemia type: unspecified type Qualified Code(s): D64.9 - Anemia, unspecified
--- NOTE | 2023-06-30 10:47 | Surgery Progress Note ---
Date of Service June 30, 2023 Assessment & Plan (1) Cecum cancer: Plan: wound doing well discharge planning (2) Cystitis: Plan: levaquin Admission and Anticipated Discharge Date Admission Date: May 06, 2023 Subjective no new issues Review of Systems Constitutional: no fever and no chills Respiratory: no dyspnea Cardiovascular: no chest pain Gastrointestinal: + abdominal pain; no nausea, no vomiting and no change in bowel habits Neurologic: + generalized weakness; no localized wea kness Physical Exam Constitutional: + thin Respiratory: normal respiratory effort, lungs clear to auscultation Cardiovascular: RRR, no murmur, no edema Gastrointestinal (Abdomen): Inspection/Auscultation: abdomen normal to inspection, + abdomen distended and normal bowel sounds Percussion/Palpation: + abdomen tender and abdomen soft; no guarding and abdomen not rigid wound granulating well Musculoskeletal: Head/Neck/Chest: normocephalic and head atraumatic Results & Data Vital Signs (Past 12 Hours) Vital Signs Temp Pulse Resp BP Pulse Ox O2 Del Method 06/30/23 07:18 36.4 C L 55 L 16 144/67 H 98 Room Air
--- NOTE | 2023-06-30 15:38 | Hospitalist Progress Note ---
Date of Service June 30, 2023 Assessment & Plan (1) Cecum cancer: (2) Post-operative state: (3) Hypertension: (4) Anemia: (5) Renal cyst: Plan 83 year old woman who is s/p elective open right colon resection at [facility] on 05/06/23 for an ill-defined masslike enlargement of the cecum and terminal ileum concerning for colonic carcinoma with metastatic disease to regional lymph nodes. 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 She was transfused 3 units of pRBCs for post operative anemia. Intravenous toradol and tylenol were used for pain control. A diet of clears was started on 05/07. On 05/09 purulent drainage was noted from her drain and she had some nausea and mild distension of her abdomen. she went back to ice chips/sips and IV Zosyn was started. Perioperative clindamycin was administered (05/05-05/08). Over the next few days her diet was advanced again and her abx were continued through 05/19. 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 A repeat CT a/p was performed. The fistula output was low and her low fiber diet was continued. 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 No obstruction. Foci of induration in RLQ mesentery likely fat necrosis Urine Cx growing Grp B strep and pansensitive E coli Completed Levaquin course Hypertension Avoid NSAIDs as able BP Variable Given electrolyte abnormalities, HCTZ had been discontinued Continue amlodipine 2.5 mg daily (reduced from home dose 10mg) Hold lisinopril for now BP stable today Severe protein calorie malnutrition In the setting of malignancy, 67 kilos in 01/2023, now 50kilos 19 BMI Continue nutritional supplements Renal Cyst Follow-up as outpatient DVT Px: per primary team. Ambulate CODE STATUS FULL CODE Admission and Anticipated Discharge Date Admission Date: May 06, 2023 Subjective Patient is seen and examined at bedside No new complaints Still has some abd pain Denies any chest pain, dyspnea, nausea, vomiting Review of Systems Review of Systems: All systems reviewed & are unremarkable except as noted in Subjective Physical Exam Physical Exam: Physical Exam: Vitals signs as noted above General Appearance:Moderately built and nourished, no apparent distress Head: normocephalic, Atraumatic Eyes: normal inspection, EOMI Neck: supple, Trachea midline Respiratory/Chest: Normal breath sounds, CTA, No accessory muscle use Cardiovascular: S1, S2, No murmur Abdomen/GI:Soft, Non tender, Bowel sounds present Extremities/Musculoskeletal:normal inspection, no edema Neurologic/Psych:AAOX3, grossly no focal neurological deficits Skin: normal color, warm Results & Data Results & Data Vital Signs (Past 12 Hours) Vital Signs Temp Pulse Resp BP Pulse Ox O2 Del Method 06/30/23 14:51 36.6 C 71 16 112/71 98 Room Air 06/30/23 07:18 36.4 C L 55 L 16 144/67 H 98 Room Air (3) Hypertension Hypertension type: primary hypertension Qualified Code(s): I10 - Essential (primary) hypertension (4) Anemia Anemia type: unspecified type Qualified Code(s): D64.9 - Anemia, unspecified
--- NOTE | 2023-07-01 09:29 | Surgery Progress Note ---
Date of Service July 01, 2023 Assessment & Plan (1) Cecum cancer: Plan: dressings home with home health soon Admission and Anticipated Discharge Date Admission Date: May 06, 2023 Subjective slow progress discharge planning Review of Systems Constitutional: no fever and no chills Respiratory: no cough and no dyspnea Cardiovascular: no chest pain Gastrointestinal: + abdominal pain; no nausea and no vomit ing Genitourinary: no dysuria Physical Exam Constitutional: + thin Respiratory: normal respiratory effort, lungs clear to auscultation Cardiovascular: RRR, no murmur, no edema Gastrointestinal (Abdomen): Inspection/Auscultation: abdomen normal to inspection and normal bowel sounds; abdomen not distended Percussion/Palpa tion: + abdomen tender and abdomen soft wound granulating Results & Data Vital Signs (Past 12 Hours) Vital Signs Temp Pulse Resp BP Pulse Ox O2 Del Method 07/01/23 07:21 36.6 C 61 16 148/69 H 98 Room Air
[2023-07-01] MEDS ORDERED: SODIUM CHLORIDE 0.65% NA SOLN 45 ML (OCEAN) PRN (12:18)
--- NOTE | 2023-07-01 17:11 | Hospitalist Progress Note ---
Date of Service July 01, 2023 Assessment & Plan (1) Cecum cancer: (2) Post-operative state: (3) Hypertension: (4) Anemia: (5) Renal cyst: Plan 83 year old woman who is s/p elective open right colon resection at [facility] on 05/06/23 for an ill-defined masslike enlargement of the cecum and terminal ileum concerning for colonic carcinoma with metastatic disease to regional lymph nodes. 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 She was transfused 3 units of pRBCs for post operative anemia. Intravenous toradol and tylenol were used for pain control. A diet of clears was started on 05/07. On 05/09 purulent drainage was noted from her drain and she had some nausea and mild distension of her abdomen. she went back to ice chips/sips and IV Zosyn was started. Perioperative clindamycin was administered (05/05-05/08). Over the next few days her diet was advanced again and her abx were continued through 05/19. 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 A repeat CT a/p was performed. The fistula output was low and her low fiber diet was continued. 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 No obstruction. Foci of induration in RLQ mesentery likely fat necrosis Urine Cx growing Grp B strep and pansensitive E coli Completed Levaquin course Hypertension Avoid NSAIDs as able BP Variable Given electrolyte abnormalities, HCTZ had been discontinued Continue amlodipine 2.5 mg daily (reduced from home dose 10mg) Hold lisinopril for now BP Variable Severe protein calorie malnutrition In the setting of malignancy, 67 kilos in 01/2023, now 50kilos 19 BMI Continue nutritional supplements Renal Cyst Follow-up as outpatient DVT Px: per primary team. Ambulate CODE STATUS FULL CODE Admission and Anticipated Discharge Date Admission Date: May 06, 2023 Subjective Patient is seen and examined at bedside Reports nasal stuffiness, headache and intermittent dizziness today Abd pain is controlled Denies any chest pain, dyspnea, nausea, vomiting Review of Systems Review of Systems: All systems reviewed & are unremarkable except as noted in Subjective Physical Exam Physical Exam: Physical Exam: Vitals signs as noted above General Appearance:Moderately built and nourished, no apparent distress Head: normocephalic, Atraumatic Eyes: normal inspection, EOMI Neck: supple, Trachea midline Respiratory/Chest: Normal breath sounds, CTA, No accessory muscle use Cardiovascular: S1, S2, No murmur Abdomen/GI:Soft, Non tender, Bowel sounds present Extremities/Musculoskeletal:normal inspection, no edema Neurologic/Psych:AAOX3, grossly no focal neurological deficits Skin: normal color, warm Results & Data Results & Data Vital Signs (Past 12 Hours) Vital Signs Temp Pulse Resp BP Pulse Ox O2 Del Method 07/01/23 14:09 36.6 C 81 16 117/68 98 Room Air 07/01/23 07:21 36.6 C 61 16 148/69 H 98 Room Air (3) Hypertension Hypertension type: primary hypertension Qualified Code(s): I10 - Essential (primary) hypertension (4) Anemia Anemia type: unspecified type Qualified Code(s): D64.9 - Anemia, unspecified
--- NOTE | 2023-07-02 10:28 | Surgery Progress Note ---
Date of Service July 02, 2023 Assessment & Plan (1) Cecum cancer: Plan: good progress home health avaiable tomorrow discharge next few days Admission and Anticipated Discharge Date Admission Date: May 06, 2023 Subjective feels better Review of Systems Constitutional: no fever and no chills Respiratory: no cough and no dyspnea Cardiovascular: no chest pain Gastrointestinal: + abdominal pain; no nausea and no vomit ing Genitourinary: no dysuria Physical Exam Constitutional: + thin Respiratory: normal respiratory effort, lungs clear to auscultation Cardiovascular: RRR, no murmur, no edema Gastrointestinal (Abdomen): Inspection/Auscultation: abdomen normal to inspection, + abdomen distended and normal bowel sounds Percussion/Palpation: + abdomen tender and abdomen soft; no guarding and abdomen not rigid wound granulating Musculoskeletal: Head/Neck/Chest: normocephalic and head atraumatic Skin: no rashes, warm and dry Results & Data Vital Signs (Past 12 Hours) Vital Signs Temp Pulse Resp BP Pulse Ox O2 Del Method 07/02/23 07:10 36.8 C 63 17 138/80 97 Room Air
--- NOTE | 2023-07-02 18:38 | Hospitalist Progress Note ---
Date of Service July 02, 2023 Assessment & Plan (1) Cecum cancer: (2) Post-operative state: (3) Hypertension: (4) Anemia: (5) Renal cyst: Plan 83 year old woman who is s/p elective open right colon resection at [facility] on 05/06/23 for an ill-defined masslike enlargement of the cecum and terminal ileum concerning for colonic carcinoma with metastatic disease to regional lymph nodes. 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 She was transfused 3 units of pRBCs for post operative anemia. Intravenous toradol and tylenol were used for pain control. A diet of clears was started on 05/07. On 05/09 purulent drainage was noted from her drain and she had some nausea and mild distension of her abdomen. she went back to ice chips/sips and IV Zosyn was started. Perioperative clindamycin was administered (05/05-05/08). Over the next few days her diet was advanced again and her abx were continued through 05/19. 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 A repeat CT a/p was performed. The fistula output was low and her low fiber diet was continued. 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 No obstruction. Foci of induration in RLQ mesentery likely fat necrosis Urine Cx growing Grp B strep and pansensitive E coli Completed Levaquin course Hypertension Avoid NSAIDs as able BP Variable Given electrolyte abnormalities, HCTZ had been discontinued Continue amlodipine 2.5 mg daily (reduced from home dose 10mg) Hold lisinopril for now BP Variable Continue current medications Severe protein calorie malnutrition In the setting of malignancy, 67 kilos in 01/2023, now 50kilos 19 BMI Continue nutritional supplements Renal Cyst Follow-up as outpatient DVT Px: per primary team. Ambulate CODE STATUS FULL CODE Admission and Anticipated Discharge Date Admission Date: May 06, 2023 Subjective Patient is seen and examined at bedside Still has some nasal stuffiness Headache improved No new complaints Abd pain is controlled Denies any chest pain, dyspnea, nausea, vomiting Review of Systems Review of Systems: All systems reviewed & are unremarkable except as noted in Subjective Physical Exam Physical Exam: Physical Exam: Vitals signs as noted above General Appearance:Moderately built and nourished, no apparent distress Head: normocephalic, Atraumatic Eyes: normal inspection, EOMI Neck: supple, Trachea midline Respiratory/Chest: Normal breath sounds, CTA, No accessory muscle use Cardiovascular: S1, S2, No murmur Abdomen/GI:Soft, Non tender, Bowel sounds present Extremities/Musculoskeletal:normal inspection, no edema Neurologic/Psych:AAOX3, grossly no focal neurological deficits Skin: normal color, warm Results & Data Results & Data Vital Signs (Past 12 Hours) Vital Signs Temp Pulse Resp BP BP Pulse Ox O2 Del Method 07/02/23 14:52 36.6 C 72 17 135/65 97 Room Air 07/02/23 07:10 36.8 C 63 17 138/80 97 Room Air (3) Hypertension Hypertension type: primary hypertension Qualified Code(s): I10 - Essential (primary) hypertension (4) Anemia Anemia type: unspecified type Qualified Code(s): D64.9 - Anemia, unspecified
[2023-07-03 07:48] LABS: Hematocrit (blood only) 27.2 % (37.0-47.0); Hemoglobin 8.8 g/dl (12.0-16.0); Mean Corpuscular Hemoglobin 24.8 pg (25.0-34.0); Mean Corpuscular Hgb Conc 32.4 g/dL (32.0-36.0); Mean Corpuscular Volume 76.6 fL (80.0-100.0); Mean Platelet Volume 10.1 fL (9.4-12.4); Platelet Count 226 K/uL (130-400); RDW Coefficient of Variation 27.9 % (11.5-14.5); RDW Standard Deviation 75.6 fL (36.4-46.3); Red Blood Count 3.55 M/uL (4.20-5.40); White Blood Count 6.19 K/ul (4.8-10.8)
[2023-07-03 08:15] LABS: Calcium 8.6 mg/dl (8.6-10.3); Creatinine Clr Calc Pharmacy 67.6 ml/min; Est GFR (African American) 103.7 ml/min; Est GFR (Non-African American) 89.5 ml/min; Potassium 3.9 mmol/L (3.5-5.1)
--- NOTE | 2023-07-03 09:37 | Surgery Progress Note ---
Date of Service July 03, 2023 Assessment & Plan (1) Cecum cancer: Plan: home health in place home Saturday Admission and Anticipated Discharge Date Admission Date: May 06, 2023 Subjective feeeling better Review of Systems Constitutional: no fever and no chills Physical Exam Respiratory: normal respiratory effort, lungs clear to auscultation Cardiovascular: RRR, no murmur, no edema Gastrointestinal (Abdomen): Inspection/Auscultation: abdomen normal to inspection, + abdomen distended and normal bowel sounds Percussion/Palpation: + abdomen tender and abdomen soft; no guarding and abdomen not rigid granulating wound Results & Data Vital Signs (Past 12 Hours) Vital Signs Temp Pulse Resp BP Pulse Ox O2 Del Method 07/03/23 07:35 36.7 C 66 18 135/85 97 Room Air 07/03/23 07:21 Room Air
--- NOTE | 2023-07-03 17:01 | Hospitalist Progress Note ---
Date of Service July 03, 2023 Assessment & Plan (1) Cecum cancer: (2) Post-operative state: (3) Hypertension: (4) Anemia: (5) Renal cyst: Plan Ms Walden is an 83 year old woman who is s/p elective open right colon resection at [facility] on 05/06/23 for an ill-defined masslike enlargement of the cecum and terminal ileum concerning for colonic carcinoma with metastatic disease to regional lymph nodes. 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 She was transfused 3 units of pRBCs for post operative anemia. Intravenous toradol and tylenol were used for pain control. A diet of clears was started on 05/07. On 05/09 purulent drainage was noted from her drain and she had some nausea and mild distension of her abdomen. she went back to ice chips/sips and IV Zosyn was started. Perioperative clindamycin was administered (05/05-05/08). Over the next few days her diet was advanced again and her abx were continued through 05/19. 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 A repeat CT a/p was performed. The fistula output was low and her low fiber diet was continued. 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 No obstruction. Foci of induration in RLQ mesentery likely fat necrosis Urine Cx growing Grp B strep and pansensitive E coli Completed Levaquin course #Hypertension Avoid NSAIDs as able BP Variable Given electrolyte abnormalities, HCTZ had been discontinued Continue amlodipine 2.5 mg daily (reduced from home dose 10mg) Hold lisinopril BP Variable Continue current medications #Severe protein calorie malnutrition In the setting of malignancy, 67 kilos in 01/2023, now 50kilos 19 BMI Continue nutritional supplements #Renal Cyst Follow-up as outpatient DVT Px: per primary team. Ambulate CODE STATUS FULL CODE Admission and Anticipated Discharge Date Admission Date: May 06, 2023 Subjective NAEO Ambulating the hallways Denies concerns or pain--eagerness to return home Physical Exam Constitutional: WD/WN, vitals as above Respiratory: normal respiratory effort, lungs clear to auscultation Cardiovascular: RRR, no murmur, no edema Results & Data Results & Data Vital Signs (Past 12 Hours) Vital Signs Temp Pulse Resp BP BP Pulse Ox O2 Del Method 07/03/23 14:55 36.6 C 73 16 147/67 H 98 Room Air 07/03/23 07:35 36.7 C 66 18 135/85 97 Room Air 07/03/23 07:21 Room Air Laboratory Results Short CBC 07/03/23 Range/Units 07:16 WBC 6.19 (4.8-10.8) K/ul Hgb 8.8 L (12.0-16.0) g/dl Hct 27.2 L (37.0-47.0) % Plt Count 226 (130-400) K/uL BMP 07/03/23 07:16 Sodium 142 Potassium 3.9 Chloride 110 H Carbon Dioxide 27 BUN 14 Creatinine 0.50 L Glucose 93 Calcium 8.6 Medications Administered Home Medications Medication Instructions Recorded Confirmed Last Taken lisinopril 20 mg tablet 20 mg PO QAM 04/30/20 05/06/23 04/30/20 tramadol 50 mg tablet 50 mg PO BID PRN pain #11 tabs 04/05/23 05/06/23 Unknown acetaminophen 500 mg tablet 500 mg PO Q6H PRN Pain 05/06/23 05/06/23 Unknown pantoprazole 40 mg tablet,delayed 40 mg PO BID #60 tabs 06/06/23 Unknown release amlodipine 2.5 mg tablet 2.5 mg PO DAILY #30 tabs 06/28/23 Unknown Active Medications Generic Name Dose Route Start Last Admin Trade Name Freq PRN Reason Stop Dose Admin Acetaminophen 1,000 mg 06/15/23 08:09 07/03/23 08:17 Acetaminophen 500 Mg Tab PO 07/15/23 08:08 1,000 mg Q8H PRN Administration Pain Amlodipine Besylate 2.5 mg 06/28/23 09:00 07/03/23 08:18 Amlodipine Besylate 5 Mg Tab PO 07/28/23 08:59 2.5 mg QAM AMALIA Administration Lisinopril 20 mg 06/11/23 09:00 06/28/23 10:16 Lisinopril 20 Mg Tab PO 07/11/23 08:59 20 mg DAILY AMALIA Administration (3) Hypertension Hypertension type: primary hypertension Qualified Code(s): I10 - Essential (primary) hypertension (4) Anemia Anemia type: unspecified type Qualified Code(s): D64.9 - Anemia, unspecified
--- NOTE | 2023-07-04 11:53 | Surgery Progress Note ---
Date of Service July 04, 2023 Assessment & Plan (1) Cecum cancer: Plan: arranged home this afternoon or in AM Admission and Anticipated Discharge Date Admission Date: May 06, 2023 Subjective feels pretty good Review of Systems Constitutional: no fever and no chills Respiratory: no dyspnea Cardiovascular: no chest pain Gastrointestinal: + abdominal pain; no nausea and no vomit ing Genitourinary: no dysuria Physical Exam Constitutional: + thin Respiratory: normal respiratory effort, lungs clear to auscultation Cardiovascular: RRR, no murmur, no edema Gastrointestinal (Abdomen): Inspection/Auscultation: abdomen normal to inspection and normal bowel sounds; abdomen not distended Percussion/Palpation: + abdomen tender and abdomen soft; no guarding and abdomen not rigid granulating wound Musculoskeletal: Head/Neck/Chest: normocephalic and head atraumatic Results & Data Vital Signs (Past 12 Hours) Vital Signs Temp Pulse Resp BP Pulse Ox O2 Del Method 07/04/23 07:58 36.4 C L 61 16 168/80 H 97 Room Air
--- NOTE | 2023-07-04 12:57 | Hospitalist Progress Note ---
Date of Service July 04, 2023 Assessment & Plan (1) Cecum cancer: (2) Post-operative state: (3) Hypertension: (4) Anemia: (5) Renal cyst: Plan Ms Walden is an 83 year old woman who is s/p elective open right colon resection at [facility] on 05/06/23 for an ill-defined masslike enlargement of the cecum and terminal ileum concerning for colonic carcinoma with metastatic disease to regional lymph nodes. 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 She was transfused 3 units of pRBCs for post operative anemia. Intravenous toradol and tylenol were used for pain control. A diet of clears was started on 05/07. On 05/09 purulent drainage was noted from her drain and she had some nausea and mild distension of her abdomen. she went back to ice chips/sips and IV Zosyn was started. Perioperative clindamycin was administered (05/05-05/08). Over the next few days her diet was advanced again and her abx were continued through 05/19. 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 A repeat CT a/p was performed. The fistula output was low and her low fiber diet was continued. 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 No obstruction. Foci of induration in RLQ mesentery likely fat necrosis Urine Cx growing Grp B strep and pansensitive E coli Completed Levaquin course #Hypertension Avoid NSAIDs as able BP Variable Given electrolyte abnormalities, HCTZ had been discontinued Continue amlodipine 2.5 mg daily (reduced from home dose 10mg) Hold lisinopril BP Variable Continue current regimen with amlodipine--patient will follow up with PCP to discuss further BP monitoring #Severe protein calorie malnutrition In the setting of malignancy, 67 kilos in 01/2023, now 50kilos 19 BMI Continue nutritional supplements #Renal Cyst Follow-up as outpatient DVT Px: per primary team. Ambulate CODE STATUS FULL CODE Admission and Anticipated Discharge Date Admission Date: May 06, 2023 Subjective Reports feeling great and eager to get home Physical Exam Constitutional: WD/WN, vitals as above Respiratory: normal respiratory effort, lungs clear to auscultation Cardiovascular: RRR, no murmur, no edema Results & Data Results & Data Vital Signs (Past 12 Hours) Vital Signs Temp Pulse Resp BP Pulse Ox O2 Del Method 07/04/23 07:58 36.4 C L 61 16 168/80 H 97 Room Air Medications Administered Home Medications Medication Instructions Recorded Confirmed Last Taken tramadol 50 mg tablet 50 mg PO BID PRN pain #11 tabs 04/05/23 05/06/23 Unknown acetaminophen 500 mg tablet 500 mg PO Q6H PRN Pain 05/06/23 05/06/23 Unknown pantoprazole 40 mg tablet,delayed 40 mg PO BID #60 tabs 06/06/23 Unknown release amlodipine 2.5 mg tablet 2.5 mg PO DAILY #30 tabs 06/28/23 Unknown Active Medications Generic Name Dose Route Start Last Admin Trade Name Freq PRN Reason Stop Dose Admin Acetaminophen 1,000 mg 06/15/23 08:09 07/04/23 05:52 Acetaminophen 500 Mg Tab PO 07/15/23 08:08 1,000 mg Q8H PRN Administration Pain Amlodipine Besylate 2.5 mg 06/28/23 09:00 07/04/23 07:49 Amlodipine Besylate 5 Mg Tab PO 07/28/23 08:59 2.5 mg QAM AMALIA Administration Lisinopril 20 mg 06/11/23 09:00 06/28/23 10:16 Lisinopril 20 Mg Tab PO 07/11/23 08:59 20 mg DAILY AMALIA Administration (3) Hypertension Hypertension type: primary hypertension Qualified Code(s): I10 - Essential (primary) hypertension (4) Anemia Anemia type: unspecified type Qualified Code(s): D64.9 - Anemia, unspecified
--- NOTE | 2023-07-05 11:25 | Surgery Progress Note ---
Date of Service July 05, 2023 Assessment & Plan (1) Cecum cancer: Plan: POD # 60 s/p right hemicolectomy avss EC fistula healed wound healing well Plan: Discussed with patient multiple times today that the plan is for discharge today as her Son has traveled from [id number] to stay with her over the weekend until Saturday afternoon. Will have family (Daughter) help with dressing change on Saturday until home health can start on Saturday. Dressing : every other day dressing change with aguacel ag and optifoam. oncology referral placed into [facility], will need followup, sent message to oncology team and pcp. surgical follow up already scheduled with dr. Khoury next week wound clinic follow up scheduled 07/12/2023 will need PCP follow up in 1 week as well. Admission and Anticipated Discharge Date Admission Date: May 06, 2023 Subjective son has arrived at her house unsure if son can do dressing change on Saturday doing well otherwise, pain moderate but stable tolerating diet Physical Exam Constitutional: WD/WN, vitals as above cooperative and comfortable; no acute distress and not ill appearing Gastrointestinal (Abdomen): Inspection/Auscultation: + abdomen distended Percussion/Palpation: + abdomen tender (generalized) and abdomen soft; no guarding, abdomen not rigid and abdomen not firm Psychiatric: Orientation: alert and oriented x 3 Results & Data Vital Signs (Past 12 Hours) Vital Signs Temp Pulse Resp BP Pulse Ox O2 Del Method 07/05/23 09:29 36.9 C 73 16 167/74 H 97 Room Air
--- NOTE | 2023-07-05 13:00 | Hospitalist Progress Note ---
Date of Service July 05, 2023 Assessment & Plan (1) Cecum cancer: (2) Post-operative state: (3) Hypertension: (4) Anemia: (5) Renal cyst: Plan Ms Walden is an 83 year old woman who is s/p elective open right colon resection at [facility] on 05/06/23 for an ill-defined masslike enlargement of the cecum and terminal ileum concerning for colonic carcinoma with metastatic disease to regional lymph nodes. 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 She was transfused 3 units of pRBCs for post operative anemia. Intravenous toradol and tylenol were used for pain control. A diet of clears was started on 05/07. On 05/09 purulent drainage was noted from her drain and she had some nausea and mild distension of her abdomen. she went back to ice chips/sips and IV Zosyn was started. Perioperative clindamycin was administered (05/05-05/08). Over the next few days her diet was advanced again and her abx were continued through 05/19. 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 A repeat CT a/p was performed. The fistula output was low and her low fiber diet was continued. 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 No obstruction. Foci of induration in RLQ mesentery likely fat necrosis Urine Cx growing Grp B strep and pansensitive E coli Completed Levaquin course #Hypertension Avoid NSAIDs as able BP Variable Given electrolyte abnormalities, HCTZ had been discontinued Continue amlodipine 2.5 mg daily (reduced from home dose 10mg) Hold lisinopril BP Variable Continue current regimen with amlodipine--patient will follow up with PCP to discuss further BP monitoring #Severe protein calorie malnutrition In the setting of malignancy, 67 kilos in 01/2023, now 50kilos 19 BMI Continue nutritional supplements #Renal Cyst Follow-up as outpatient DVT Px: per primary team. Ambulate CODE STATUS FULL CODE Admission and Anticipated Discharge Date Admission Date: May 06, 2023 Subjective NAEO Patient eager for dispo Physical Exam Constitutional: WD/WN, vitals as above (ambulating with walker ) Respiratory: normal respiratory effort, lungs clear to auscultation Cardiovascular: RRR, no murmur, no edema Gastrointestinal (Abdomen): normal bowel sounds, soft, nontender, no hepatosplenomegaly Results & Data Results & Data Vital Signs (Past 12 Hours) Vital Signs Temp Pulse Resp BP Pulse Ox O2 Del Method 07/05/23 09:29 36.9 C 73 16 167/74 H 97 Room Air Medications Administered Home Medications Medication Instructions Recorded Confirmed Last Taken tramadol 50 mg tablet 50 mg PO BID PRN pain #11 tabs 04/05/23 05/06/23 Unknown acetaminophen 500 mg tablet 500 mg PO Q6H PRN Pain 05/06/23 05/06/23 Unknown pantoprazole 40 mg tablet,delayed 40 mg PO BID #60 tabs 06/06/23 Unknown release amlodipine 2.5 mg tablet 2.5 mg PO DAILY #30 tabs 06/28/23 Unknown Active Medications Generic Name Dose Route Start Last Admin Trade Name Freq PRN Reason Stop Dose Admin Acetaminophen 1,000 mg 06/15/23 08:09 07/04/23 23:24 Acetaminophen 500 Mg Tab PO 07/15/23 08:08 1,000 mg Q8H PRN Administration Pain Amlodipine Besylate 2.5 mg 06/28/23 09:00 07/05/23 09:25 Amlodipine Besylate 5 Mg Tab PO 07/28/23 08:59 2.5 mg QAM AMALIA Administration Lisinopril 20 mg 06/11/23 09:00 06/28/23 10:16 Lisinopril 20 Mg Tab PO 07/11/23 08:59 20 mg DAILY AMALIA Administration (3) Hypertension Hypertension type: primary hypertension Qualified Code(s): I10 - Essential (p rimary) hypertension (4) Anemia Anemia type: unspecified type Qualified Code(s): D64.9 - Anemia, unspecified
== END 2023-07-05 17:15 | disposition home or self-care (01) | DRG 329 ==
LOC: ASU 09:31 → 3N 15:11 → 3W 05-08 18:17